=== PATIENT | female | born 1945 | race Caucasian/White ===

== ENCOUNTER → 2017-01-29 | Outpatient (CLI) | payer MEDICARE ==
[~2017-01-29] MED LIST: 'CLONIDINE0.1 MG PO; ASPIR 8181 MG PO; ATIVAN2 MG PO; ATORVASTATIN CA40 M1 PO; BACTRIM DS 8001 TA1 PO; CARDIZEM CD240 M1 PO; CARDIZEM CD240 MG PO; CATAFLAM50 MG PO; CEFTIN250 MG PO; CEFTIN500 M1 PO; CEPHALEXIN500 M1 PO; CIPRO500 MG PO; CIPRO750 MG PO; CLONIDINE HYDR0.1 MG PO; COLACE100 MG PO; CORDROL20 MG PO; COUMADIN0.5 MG PO; COUMADIN10 M1 PO; COUMADIN2.5 M1 PO; COUMADIN2.5 MG PO; COUMADIN4 M2 PO; COUMADIN4 MG PO; COUMADIN7.5 M1 PO; Clopidogrel75 MG PO; Coumadin5 MG PO; DARVOCET N 1001 TAB PO; DAYPRO600 M1 PO; DELTASONE20 MG PO; DUONEB 3 MG/3 ML3 M1 INH; GOLYTELY PO; KEFLEX500 MG PO; LEVAQUIN750 M1 PO; LEXAPRO10 MG PO; LIPITOR40 MG PO; LISINOPRIL10 M1 PO; LISINOPRIL10 MG PO; LOMOTIL 0.025 M1 TA1 PO; LOPRESSOR25 MG PO; LORAZEPAM1 MG PO; Lovenox30 MG/0.3; MACROBID100 M1 PO; METOPROLOL TART50 M1 PO; MIRALAX POWDER17 G1 PO; OXYCODONE HCL20 M1 PO; OXYCONTIN20 MG PO; OXYCONTIN30 MG PO; OXYCONTIN40 M1 PO; OXYCONTIN40 MG PO; PANTOPRAZOLE SO40 MG PO; PERCOCET 325 MG1 TA7 PO; PREDNICOT20 MG PO; PREDNISONE5 MG PO; PROTONIX40 MG PO; PYRIDIUM200 M1 PO; PYRIDIUM200 MG PO; SKELAXIN800 MG PO; WARFARIN SODIUM4 MG PO; WARFARIN SODIUM5 MG PO; ZANTAC 300300 MG PO; ZOFRAN ODT4 MG SL
== END | disposition home or self-care (01) ==
LOC: RAD 13:35
DX: M79.672 Pain in left foot (principal); R20.0 Anesthesia of skin

== ENCOUNTER 2017-02-02 00:07 | Emergency (ER) | payer MEDICARE ==
[~2017-02-02] VITALS: Ht 167.6 cm; Wt 81.6 kg
[2017-02-02 00:20] VITALS: BP 156/76
[2017-02-02] MEDS ORDERED: OXYBUTYNIN5 MG PO (00:26)
[2017-02-02 01:05] LABS: BASO # 0.1 10*3/uL (0.0-0.1); BASO % 1.1 % (0.0-1.0); EOS # 0.5 10*3/uL (0.0-0.4); EOS % 6.1 % (1.0-4.0); HEMOGLOBIN 14.4 g/dl (12.0-16.0); LYMPH # 2.3 10*3/uL (1.3-4.4); MEAN CELL VOLUME 86.9 fl (81.0-99.0); MEAN CORPUSCULAR HGB 27.8 pg (27.0-31.0); MEAN PLATELET VOLUME 10.8 fl (9.6-12.3); MONO # 0.5 10*3/uL (0.1-1.0); NEUT # 4.2 10*3/uL (2.3-7.9); NEUT % 55.5 % (47.0-73.0); PLATELET COUNT AUTOMATED 221 10*3/uL (130-400); RED BLOOD COUNT 5.18 10*6/uL (4.10-5.10); RED CELL DISTRI WIDTH 16.1 % (0-14.5); WHITE BLOOD COUNT 7.6 10*3/uL (4.8-10.8)
[2017-02-02 01:22] LABS: ALBUMIN 3.1 gm/dl (3.1-4.5); ALKALINE PHOSPHATASE 122 U/L (45-117); BILIRUBIN, TOTAL 0.3 mg/dl (0.2-1.0); BUN 14 mg/dl (7-24); CARBON DIOXIDE 30 mmol/L (21-32); CHLORIDE 101 mmol/L (98-107); EST GLOM FILT AFRICAN AMERICAN > 60 ml/min; GLUCOSE 277 mg/dL (65-99); SGOT/AST 21 IU/L (3-35); SGPT/ALT 26 U/L (12-78); SODIUM 138 mmol/L (136-145); TOTAL PROTEIN 6.9 gm/dL (6.4-8.2)
== END 2017-02-02 04:59 | disposition home or self-care (01) ==
LOC: ED 00:07
PROVIDERS: Physician Assistant
DX: G89.29 Other chronic pain (principal); R10.10 Upper abdominal pain, unspecified; Z79.01 Long term (current) use of anticoagulants; Z90.49 Acquired absence of other specified parts of digestive tract; Z88.1 Allergy status to other antibiotic agents; Z88.2 Allergy status to sulfonamides; Z88.6 Allergy status to analgesic agent; Z91.013 Allergy to seafood; Z91.041 Radiographic dye allergy status

== ENCOUNTER → 2017-02-13 | Outpatient (CLI) | payer MEDICARE ==
[~2017-02-13] MED LIST changes: +OXYBUTYNIN5 MG PO
[2017-02-13 12:16] LABS: INTERNATIONAL NORM RATIO 2.7 (2.0-3.5); PROTHROMBIN TIME 30.1 SECONDS (9.0-12.4)
== END | disposition home or self-care (01) ==
LOC: LAB 11:06
PROVIDERS: Internal Medicine Gastroenterology
DX: Z79.01 Long term (current) use of anticoagulants (principal)

== ENCOUNTER → 2017-03-05 | Outpatient (CLI) | payer MEDICARE | END | disposition home or self-care (01) | LOC: RAD 11:41 | DX: M19.072 Primary osteoarthritis, left ankle and foot (principal) ==

== ENCOUNTER → 2017-03-26 | Outpatient (CLI) | payer MEDICARE ==
[2017-03-26 13:02] LABS: BASO # 0.1 10*3/uL (0.0-0.1); BASO % 0.9 % (0.0-1.0); EOS # 0.3 10*3/uL (0.0-0.4); EOS % 3.2 % (1.0-4.0); HEMATOCRIT 46.5 % (37.0-47.0); LYMPH # 2.6 10*3/uL (1.3-4.4); MEAN CELL VOLUME 87.6 fl (81.0-99.0); MEAN CORPUSCULAR HGB 28.2 pg (27.0-31.0); MEAN CORPUSCULAR HGB CONC 32.3 g/dl (33.0-37.0); MEAN PLATELET VOLUME 10.9 fl (9.6-12.3); MONO # 0.4 10*3/uL (0.1-1.0); MONO % 5.2 % (3.0-9.0); NEUT # 4.4 10*3/uL (2.3-7.9); NEUT % 57.4 % (47.0-73.0); PLATELET COUNT AUTOMATED 218 10*3/uL (130-400); RED BLOOD COUNT 5.31 10*6/uL (4.10-5.10); RED CELL DISTRI WIDTH 17.1 % (0-14.5); WHITE BLOOD COUNT 7.7 10*3/uL (4.8-10.8)
== END | disposition home or self-care (01) ==
LOC: LAB 12:15
PROVIDERS: Orthopaedic Surgery
DX: M20.12 Hallux valgus (acquired), left foot (principal); M21.612 Bunion of left foot; B99.9 Unspecified infectious disease

== ENCOUNTER → 2017-05-03 | Outpatient (CLI) | payer MEDICARE ==
[~2017-05-03] MED LIST changes: +ACETAMINOPHEN/O1 TAB PO; +OXYCONTIN20 M1 PO; +WARFARIN SOD5 MG PO
[2017-05-03 15:58] LABS: BILIRUBIN NEGATIVE (NEGATIVE); BLOOD 1+ (NEGATIVE); CLARITY SL CLOUDY (CLEAR); COLOR YELLOW (YELLOW); GLUCOSE 3+ (NEGATIVE); KETONE NEGATIVE (NEGATIVE); LEUKO ESTERASE TRACE (NEGATIVE); NITRITE NEGATIVE (NEGATIVE); PROTEIN NEGATIVE (NEGATIVE); SPECIFIC GRAVITY 1.025 (1.005-1.030); UROBILINOGEN 0.2 E.U./dl (0.2-1.0)
[2017-05-03 16:00] LABS: BASO # 0.1 10*3/uL (0.0-0.1); BASO % 0.7 % (0.0-1.0); EOS # 0.2 10*3/uL (0.0-0.4); EOS % 2.4 % (1.0-4.0); HEMATOCRIT 50.6 % (37.0-47.0); HEMOGLOBIN 16.4 g/dl (12.0-16.0); LYMPH # 3.5 10*3/uL (1.3-4.4); MEAN CORPUSCULAR HGB 29.2 pg (27.0-31.0); MEAN CORPUSCULAR HGB CONC 32.4 g/dl (33.0-37.0); MEAN PLATELET VOLUME 10.7 fl (9.6-12.3); MONO # 0.5 10*3/uL (0.1-1.0); MONO % 4.9 % (3.0-9.0); NEUT # 5.4 10*3/uL (2.3-7.9); NEUT % 55.8 % (47.0-73.0); PLATELET COUNT AUTOMATED 248 10*3/uL (130-400); RED BLOOD COUNT 5.62 10*6/uL (4.10-5.10); WHITE BLOOD COUNT 9.7 10*3/uL (4.8-10.8)
[2017-05-03 16:14] LABS: BACTERIA 2+
[2017-05-03 16:24] LABS: INTERNATIONAL NORM RATIO 4.3 (2.0-3.5); PROTHROMBIN TIME 49.5 SECONDS (9.0-12.4)
[2017-05-03 16:35] LABS: ALBUMIN 3.9 gm/dl (3.1-4.5); ALKALINE PHOSPHATASE 134 U/L (45-117); BILIRUBIN, TOTAL 0.4 mg/dl (0.2-1.0); BUN 12 mg/dl (7-24); CARBON DIOXIDE 29 mmol/L (21-32); CHLORIDE 100 mmol/L (98-107); EST GLOM FILT AFRICAN AMERICAN > 60 ml/min; GLUCOSE 151 mg/dL (65-99); POTASSIUM 4.2 mmol/L (3.5-5.1); SGOT/AST 22 IU/L (3-35); SGPT/ALT 34 U/L (12-78); SODIUM 136 mmol/L (136-145); TOTAL PROTEIN 8.3 gm/dL (6.4-8.2)
== END | disposition home or self-care (01) ==
LOC: LAB 12:54
PROVIDERS: Orthopaedic Surgery
DX: Z01.818 Encounter for other preprocedural examination (principal); M25.572 Pain in left ankle and joints of left foot; R79.1 Abnormal coagulation profile

== ENCOUNTER → 2017-05-10 | Outpatient (CLI) | payer MEDICARE | END | disposition home or self-care (01) | LOC: US 11:43 | DX: R14.0 Abdominal distension (gaseous) (principal) ==

== ENCOUNTER → 2017-05-13 | Outpatient (CLI) | payer MEDICARE ==
[2017-05-13 12:01] LABS: BASO # 0.1 10*3/uL (0.0-0.1); EOS # 0.3 10*3/uL (0.0-0.4); EOS % 3.7 % (1.0-4.0); HEMATOCRIT 47.9 % (37.0-47.0); HEMOGLOBIN 15.5 g/dl (12.0-16.0); LYMPH # 2.7 10*3/uL (1.3-4.4); LYMPH % 33.8 % (27.0-41.0); MEAN CELL VOLUME 91.6 fl (81.0-99.0); MEAN CORPUSCULAR HGB 29.6 pg (27.0-31.0); MEAN CORPUSCULAR HGB CONC 32.4 g/dl (33.0-37.0); MONO # 0.4 10*3/uL (0.1-1.0); MONO % 5.3 % (3.0-9.0); NEUT # 4.4 10*3/uL (2.3-7.9); NEUT % 55.8 % (47.0-73.0); PLATELET COUNT AUTOMATED 236 10*3/uL (130-400); RED BLOOD COUNT 5.23 10*6/uL (4.10-5.10); RED CELL DISTRI WIDTH 14.6 % (0-14.5); WHITE BLOOD COUNT 7.9 10*3/uL (4.8-10.8)
[2017-05-13 12:04] LABS: BILIRUBIN 1+ (NEGATIVE); BLOOD 3+ (NEGATIVE); CLARITY CLOUDY (CLEAR); COLOR YELLOW (YELLOW); GLUCOSE NEGATIVE (NEGATIVE); KETONE NEGATIVE (NEGATIVE); LEUKO ESTERASE 2+ (NEGATIVE); NITRITE POSITIVE (NEGATIVE); PROTEIN 2+ (NEGATIVE); SPECIFIC GRAVITY 1.025 (1.005-1.030); UROBILINOGEN 0.2 E.U./dl (0.2-1.0)
[2017-05-13 12:16] LABS: ALBUMIN 3.5 gm/dl (3.1-4.5); ALKALINE PHOSPHATASE 120 U/L (45-117); BILIRUBIN, TOTAL 0.4 mg/dl (0.2-1.0); BUN 13 mg/dl (7-24); CARBON DIOXIDE 31 mmol/L (21-32); CHLORIDE 100 mmol/L (98-107); EST GLOM FILT AFRICAN AMERICAN > 60 ml/min; GLUCOSE 161 mg/dL (65-99); POTASSIUM 3.9 mmol/L (3.5-5.1); SGOT/AST 16 IU/L (3-35); SGPT/ALT 28 U/L (12-78); SODIUM 138 mmol/L (136-145); TOTAL PROTEIN 7.6 gm/dL (6.4-8.2)
[2017-05-13 12:23] LABS: BACTERIA 3+; RBC TNTC rbc/hpf (0-2); WBC TNTC wbc/hpf (0-5)
[2017-05-13 12:23] LABS: PROTHROMBIN TIME 61.1 SECONDS (9.0-12.4)
[2017-05-13 12:31] LABS: INTERNATIONAL NORM RATIO 5.2 (2.0-3.5)
== END | disposition home or self-care (01) ==
LOC: LAB 10:53 → EDSTATUS 05-14 07:30 → SDC 05-14 07:30
PROVIDERS: Orthopaedic Surgery
DX: Z01.818 Encounter for other preprocedural examination (principal); R31.9 Hematuria, unspecified; R10.2 Pelvic and perineal pain; M25.572 Pain in left ankle and joints of left foot; K59.00 Constipation, unspecified; Z79.01 Long term (current) use of anticoagulants; Z79.899 Other long term (current) drug therapy

== ENCOUNTER 2017-05-19 03:42 | Emergency (ER) | payer MEDICARE ==
[~2017-05-19] VITALS: Ht 157.4 cm; Wt 63.5 kg
[2017-05-19 03:51] VITALS: BP 159/94
[2017-05-19] MEDS ORDERED: VESICARE5 MG PO (03:54)
[2017-05-19] MEDS ORDERED: ELIQUIS5 M1 PO (03:55)
[2017-05-19 04:44] LABS: BASO # 0.1 10*3/uL (0.0-0.1); EOS # 0.3 10*3/uL (0.0-0.4); HEMOGLOBIN 14.5 g/dl (12.0-16.0); LYMPH # 2.9 10*3/uL (1.3-4.4); LYMPH % 34.4 % (27.0-41.0); MEAN CELL VOLUME 91.1 fl (81.0-99.0); MEAN CORPUSCULAR HGB 29.4 pg (27.0-31.0); MEAN CORPUSCULAR HGB CONC 32.2 g/dl (33.0-37.0); MEAN PLATELET VOLUME 10.7 fl (9.6-12.3); MONO # 0.5 10*3/uL (0.1-1.0); MONO % 6.3 % (3.0-9.0); NEUT # 4.5 10*3/uL (2.3-7.9); NEUT % 53.9 % (47.0-73.0); PLATELET COUNT AUTOMATED 223 10*3/uL (130-400); RED BLOOD COUNT 4.94 10*6/uL (4.10-5.10); RED CELL DISTRI WIDTH 14.4 % (0-14.5); WHITE BLOOD COUNT 8.3 10*3/uL (4.8-10.8)
[2017-05-19 04:58] LABS: ALBUMIN 3.2 gm/dl (3.1-4.5); ALKALINE PHOSPHATASE 120 U/L (45-117); BILIRUBIN, TOTAL 0.5 mg/dl (0.2-1.0); BUN 15 mg/dl (7-24); C-REACTIVE PROTEIN 1.22 MG/DL (0-0.3); CARBON DIOXIDE 29 mmol/L (21-32); CHLORIDE 102 mmol/L (98-107); EST GLOM FILT AFRICAN AMERICAN > 60 ml/min; GLUCOSE 195 mg/dL (65-99); POTASSIUM 3.8 mmol/L (3.5-5.1); SGOT/AST 17 IU/L (3-35); SGPT/ALT 29 U/L (12-78); SODIUM 139 mmol/L (136-145)
[2017-05-19] MEDS ORDERED: CIPRO250 MG PO (05:44)
== END 2017-05-19 05:50 | disposition home or self-care (01) ==
LOC: ED 03:42
PROVIDERS: Emergency Medicine Emergency Medical Services
DX: K59.00 Constipation, unspecified (principal); N39.0 Urinary tract infection, site not specified; B96.20 Unspecified Escherichia coli [E. coli] as the cause of diseases classified elsewhere; I10 Essential (primary) hypertension; I25.10 Atherosclerotic heart disease of native coronary artery without angina pectoris; G89.29 Other chronic pain; I25.2 Old myocardial infarction; Z90.49 Acquired absence of other specified parts of digestive tract; Z86.718 Personal history of other venous thrombosis and embolism; Z98.51 Tubal ligation status; Z79.01 Long term (current) use of anticoagulants; Z79.899 Other long term (current) drug therapy; Z88.5 Allergy status to narcotic agent; Z91.041 Radiographic dye allergy status; Z88.2 Allergy status to sulfonamides; Z91.013 Allergy to seafood

== ENCOUNTER → 2017-06-06 | Day surgery (SDC) | payer MEDICARE ==
[2017-06-03 12:30] LABS: BILIRUBIN NEGATIVE (NEGATIVE); BLOOD TRACE-INTACT (NEGATIVE); CLARITY SL CLOUDY (CLEAR); COLOR YELLOW (YELLOW); GLUCOSE 1+ (NEGATIVE); KETONE TRACE (NEGATIVE); LEUKO ESTERASE TRACE (NEGATIVE); NITRITE NEGATIVE (NEGATIVE); PH 5.5 (5.0-9.0); PROTEIN NEGATIVE (NEGATIVE); SPECIFIC GRAVITY 1.025 (1.005-1.030); UROBILINOGEN 0.2 E.U./dl (0.2-1.0)
[2017-06-03 12:35] LABS: BASO # 0.1 10*3/uL (0.0-0.1); BASO % 0.6 % (0.0-1.0); EOS # 0.3 10*3/uL (0.0-0.4); EOS % 4.3 % (1.0-4.0); HEMATOCRIT 46.1 % (37.0-47.0); HEMOGLOBIN 14.8 g/dl (12.0-16.0); LYMPH # 2.4 10*3/uL (1.3-4.4); LYMPH % 30.3 % (27.0-41.0); MEAN CELL VOLUME 93.7 fl (81.0-99.0); MEAN CORPUSCULAR HGB 30.1 pg (27.0-31.0); MEAN CORPUSCULAR HGB CONC 32.1 g/dl (33.0-37.0); MEAN PLATELET VOLUME 11.3 fl (9.6-12.3); MONO # 0.5 10*3/uL (0.1-1.0); MONO % 6.5 % (3.0-9.0); NEUT # 4.6 10*3/uL (2.3-7.9); NEUT % 57.9 % (47.0-73.0); PLATELET COUNT AUTOMATED 209 10*3/uL (130-400); RED BLOOD COUNT 4.92 10*6/uL (4.10-5.10); RED CELL DISTRI WIDTH 14.3 % (0-14.5)
[2017-06-03 12:54] LABS: BACTERIA TRACE; RBC 0-2 rbc/hpf (0-2)
[2017-06-03 12:58] LABS: HEMOGLOBIN A1c 7.8 % (4.8-5.6)
[2017-06-03 13:02] LABS: ALBUMIN 3.5 gm/dl (3.1-4.5); ALKALINE PHOSPHATASE 122 U/L (45-117); BILIRUBIN, TOTAL 0.4 mg/dl (0.2-1.0); BUN 13 mg/dl (7-24); CARBON DIOXIDE 32 mmol/L (21-32); CHLORIDE 98 mmol/L (98-107); EST GLOM FILT AFRICAN AMERICAN > 60 ml/min; GLUCOSE 191 mg/dL (65-99); POTASSIUM 4.4 mmol/L (3.5-5.1); PROTHROMBIN TIME 10.3 SECONDS (9.0-12.4); SGOT/AST 14 IU/L (3-35); SGPT/ALT 25 U/L (12-78); SODIUM 138 mmol/L (136-145); TOTAL PROTEIN 7.6 gm/dL (6.4-8.2)
[~2017-06-06] VITALS: Ht 162.5 cm; Wt 68.9 kg
[2017-06-06] VITALS (12 sets, daily range): BP systolic 95–150; BP diastolic 37–65
[~2017-06-06] MED LIST changes: +CIPRO250 MG PO; +ELIQUIS5 M1 PO; +METFORMIN500 MG PO; +VESICARE5 MG PO; +ZOFRAN4 MG PO
--- NOTE | ~2017-06-06 | O ---
[place], [place] OPERATIVE NOTE NAME: CINDI ARCINIEGA [facility] #: [id number] UNIT #: [id number] ROOM: DOCTOR: MONCHO BELTRAN DO BIRTHDATE: [birth year] DOS: 06/06/2017 PREOPERATIVE DIAGNOSIS: Painful hardware, left ankle. POSTOPERATIVE DIAGNOSIS: Painful hardware, left ankle. PROCEDURE: Removal of painful retained hardware from the medial and lateral left ankle. SURGEON: Moncho Beltran DO. SNOWMAKER: Ese. ANESTHESIA: MARY JO Sears. INDICATIONS: The patient is a 71-year-old female with a history of ORIF of the left ankle in 2011. The patient has complained of pain in the ankle and decreased ability to ambulate since that time. The patient has had a partial hardware removal of loose screw without significant improvement. The risks and benefits of the procedure were explained to the patient preoperatively. Preoperative labs and x-rays were obtained including preoperative medical clearance. PROCEDURE IN DETAIL: The left ankle was marked in the holding room. The patient was brought to the operative suite. A spinal anesthetic was performed by Anesthesia. The patient received clindamycin IV. When the spinal anesthetic was adequate, the left lower extremity was prepped and draped in the usual orthopedic fashion. The time-out was performed. The incision was marked both medially and laterally on the left ankle. The extremity was exsanguinated with an Esmarch bandage. The tourniquet was inflated to 350 mmHg. The lateral incision was made longitudinally with the scalpel. Subcutaneous tissue was spread down to the level of the fibula. The 6-hole 1/3 tubular plate was identified and cleared of any fibrous material. The remaining 3 holes screws in the plate were removed without difficulty. The final lag screw was removed laterally. All the holes were curetted. A culture was obtained from deep within one of the screw holes. The area was copiously irrigated with normal saline and evaluated under C-arm. The fracture appeared healed with no remaining hardware laterally. Attention was then turned to the medial side of the ankle. The hardware was identified under C-arm guidance. A screw was identified using an 18-gauge needle. The incision was made sharply with a scalpel. Subcutaneous tissue was spread down to the level of the medial malleolus. The screw was identified and a K-wire used to enter this cannulated screw. The screw was removed manually with the appropriate screwdriver. The screw hole was curetted. The C-arm was utilized to confirm no remaining hardware within the left ankle and no evidence of fracture or dislocation. The ankle was copiously irrigated with normal saline and closed in a layered fashion with 2-0 Vicryl, followed by 3-0 Vicryl and skin dewey. The incisions were injected with Marcaine 0.5% plain. Xeroform, 4 x 4s, cast padding, ABDs [place], [place] OPERATIVE NOTE NAME: CINDI ARCINIEGA UNIT #: [id number] ROOM: DOCTOR: MONCHO BELTRAN DO BIRTHDATE: [birth year] and an LIAT completed the dressing. The tourniquet was released. The patient was taken to recovery room in satisfactory condition. Sponge and needle count correct. ESTIMATED BLOOD LOSS: 2-3 mL. SPECIMENS: Culture. IMPLANTS: 1. A 6-hole 1/3 tubular plate. 2. 5 titanium screws. DRAINS: None. PACKING: None. COMPLICATIONS: None. FINDINGS: Retained hardware, medial and lateral left ankle. MONCHO BELTRAN DO CM:OPRECORD:OPERATIVE NOTE 1320 24 MONCHO BELTRAN DO 06/06/171924 interface
== END | disposition home or self-care (01) ==
LOC: SDC 04-30 09:30
PROVIDERS: Orthopaedic Surgery
DX: T84.84XA Pain due to internal orthopedic prosthetic devices, implants and grafts, initial encounter (principal); F41.9 Anxiety disorder, unspecified; Z79.01 Long term (current) use of anticoagulants; Z98.890 Other specified postprocedural states; F17.210 Nicotine dependence, cigarettes, uncomplicated; Y82.8 Other medical devices associated with adverse incidents; Y92.89 Other specified places as the place of occurrence of the external cause; Z86.718 Personal history of other venous thrombosis and embolism; I10 Essential (primary) hypertension; Z87.81 Personal history of (healed) traumatic fracture; I25.2 Old myocardial infarction; I25.10 Atherosclerotic heart disease of native coronary artery without angina pectoris; Z95.5 Presence of coronary angioplasty implant and graft; J44.9 Chronic obstructive pulmonary disease, unspecified; K21.9 Gastro-esophageal reflux disease without esophagitis

== ENCOUNTER 2017-08-19 11:01 | Inpatient (IN) | payer MEDICARE ==
[~2017-08-19] VITALS: Ht 157.4 cm; Wt 64.6 kg
--- NOTE | ~2017-08-19 | PR ---
[place], [place] PROGRESS NOTE NAME: [id number] UNIT #: [id number] ROOM: 524 DOCTOR: VANGIE BOWER MD,DANIEL BIRTHDATE: [birth year] DOS: 08/26/2017 PULMONARY PROGRESS NOTE SUBJECTIVE: She was seen and examined. She has been noted comfortable at this time. Lost IV site and was currently attempted to get the peripheral line established. She is getting the transesophageal echocardiogram to be done today by the basket machine operator. OBJECTIVE: VITAL SIGNS: Shows normal temperature, respiratory rate 20, heart rate 78, blood pressure 172/74. The pulse oxygen saturation on 4 liters nasal cannula 92% saturation. HEENT: No acute change. NECK: Supple. CARDIOVASCULAR: S1, S2 audible. LUNGS: The patient was noted without any wheezing or crackles. ABDOMEN: Soft, nontender. IMPRESSION: 1. The patient with acute MRSA bacteremia, seem to be resolving. The patient is responding to treatment. 2. Acute pneumonia was also suspected in the left lower lobe as well. 3. Chronic obstructive pulmonary disease. PLAN OF TREATMENT: No changes in the plan of therapy for this patient at this time. Other supportive plan and management and care. Usual medical management for the patient as well as in progress. Additional treatment changes to be made for this patient based on progression of the illness. DANIEL VENCES MD CM:PNTRANS [id number] [id number] DANIEL BOWER MD 08/26/17 1331 interface
--- NOTE | ~2017-08-19 | PR ---
[place], [place] PROGRESS NOTE NAME: CINDI ARCINIEGA [facility] #: [id number] UNIT #: [id number] ROOM: 524 DOCTOR: VANGIE BOWER MD,DANIEL BIRTHDATE: [birth year] DOS: 08/28/2017 The patient was independently seen and examined today. History was conformed. Physical examination performed, all the available labs were reviewed. The note done by the quality engineer medical device was approved. The changes in the medical management and other for the patient were personally made for this patient on today's visit. She has been doing very well. The patient at this time remains symptomatic from the pulmonary standpoint, auscultation of the chest was clear. PHYSICAL EXAMINATION: VITAL SIGNS: For the patient which were recorded showed low-grade fever of 100 degrees Fahrenheit to normal temperature, respiratory rate 18-20, heart rate of 84, blood pressure 160/76. LUNGS: Clear. ABDOMEN: Soft, nontender. IMPRESSION: The patient with MRSA bacteremia and suspected acute pneumonia as well, currently resolving progressively. PLAN OF MANAGEMENT: The patient was planned for discharge to the nursing facility for further continued medical management. In the meantime, continue other supportive plan of therapy and care plan. DANIEL VENCES MD CM:PNTRANS [id number] DANIEL BOWER MD 08/28/17 1137 interface
--- NOTE | ~2017-08-19 | PR ---
[place], [place] PROGRESS NOTE NAME: CINDI ARCINIEGA [facility] #: [id number] UNIT #: [id number] ROOM: 524 DOCTOR: KERI CALERO MD BIRTHDATE: [birth year] DOS: 08/26/2017 SUBJECTIVE: Patient is not having any new complaints. She has not had a bowel movement yet. PHYSICAL EXAMINATION: VITAL SIGNS: Blood pressure is 109/54, pulse of 58, respirations 20, temperature 98.3. LUNGS: Diminished breath sounds. No wheezes, rales or rhonchi heard this morning. HEART: Regular. ABDOMEN: Obese. EXTREMITIES: Without any edema. ASSESSMENT AND PLAN: 1. Methicillin-resistant Staphylococcus aureus bacteremia with sepsis, on IV vancomycin, transesophageal echocardiogram pending today. 2. Atelectasis with pneumonia, on IV antibiotics. 3. Proteus mirabilis in the urine, appropriate antibiotics started. 4. Benign hypertension, controlled. Discussed with the patient's this morning; he is adamant that he wants to take her home for IV antibiotics. PICC line to be placed once the cultures from August 24 come back and if it is negative. KERI CALERO MD CM:PNTRANS [id number] KERI CALERO MD 08/26/17 2243 interface
--- NOTE | ~2017-08-19 | PR ---
[place], [place] PROGRESS NOTE NAME: CINDI ARCINIEGA [facility] #: [id number] UNIT #: [id number] ROOM: 524 DOCTOR: KERI CALERO MD BIRTHDATE: [birth year] DOS: SUBJECTIVE: The patient complains of constipation, has not had any bowel movement in a few days. OBJECTIVE: VITAL SIGNS: Blood pressure is 165/63, pulse of 70, respirations 20, temperature 98.9. LUNGS: Diminished breath sounds, clear. HEART: Regular. ABDOMEN: Obese, soft, nontender. EXTREMITIES: Without any edema. CT of the chest shows tiny bilateral pleural effusions, atelectasis and consolidated right base suggestive of pneumonia. LABORATORY DATA: White cell count is normal at 8.6, hemoglobin 12.7, hematocrit 39.8, electrolyte panel normal. Vancomycin trough normal. ESR 46, no CRP is available. Urine culture shows Proteus vulgaris. ASSESSMENT AND PLAN: 1. MRSA bacteremia with sepsis. The patient is on IV vancomycin, source of infection still unknown, scheduled for UYEN tomorrow, doubt the pneumonia is causing the bacteremia. 2. Atelectasis, pneumonia, right lower lobe with bilateral pleural effusions. Already on multiple antibiotics. 3. Urinary tract infection with Proteus mirabilis on antibiotics. 4. Benign hypertension, controlled. 5. Multiple episodes of deep vein thrombosis, on Eliquis. 6. History of coronary artery disease without any complaints of chest pain, the stool softeners and MiraLax to be given today for constipation. Repeat blood cultures that were done on August 24 that is not completed yet. Further plan depends on the blood culture results and the UYEN. [place], [place] PROGRESS NOTE NAME: [id number] UNIT #: [id number] ROOM: 524 DOCTOR: KERI CALERO MD BIRTHDATE: [birth year] KERI CALERO MD CM:PNTRANS [phone] KERI CALERO MD 08/25/17 9418 interface
--- NOTE | ~2017-08-19 | PR ---
[place], [place] PROGRESS NOTE NAME: CINDI ARCINIEGA UNIT #: [id number] ROOM: 524 DOCTOR: ROOPA BENDER MD BIRTHDATE: [birth year] DOS: 08/26/2017 SUBJECTIVE: The patient was seen today at her bedside for followup of her staph bacteremia. I have scheduled her for a transesophageal echocardiogram today and spent considerable time discussing the indications and procedure details with her . The patient had no trouble over the weekend and denies fevers or chills. She has, however, continued to be confused. She denies orthopnea or PND. She denies chest pain or palpitations. PHYSICAL EXAMINATION: VITAL SIGNS: Today her pulse is 78 and regular, blood pressure is 172/74. She is afebrile, but did have a fever of 100.0 yesterday. NECK: Supple. She has no jugular distention. Carotids are full. I heard no bruits. LUNGS: Respirations are unlabored. Her chest has decreased breath sounds at the bases. HEART: Has a regular rhythm. She has a grade 2/6 systolic murmur along the left sternal border, radiating towards the base. She has a grade 1/6 holosystolic murmur at the apex. No diastolic murmurs are heard. ABDOMEN: Soft and normally active without masses, organomegaly or bruits. EXTREMITIES: Showed no edema. She has no peripheral findings to suggest embolic phenomena. LABORATORY DATA: White count today is 8600 with hemoglobin of 12.7. Sodium is 136, potassium 3.6, BUN 16 and creatinine 0.72. IMPRESSION: 1. Staphylococcal bacteremia. 2. Recent change in mental status. 3. Essential hypertension. 4. Possible pneumonia. PLAN: I have discussed transesophageal echocardiography with the patient's including risk of anesthesia reaction, sore throat, aspiration, vomiting and esophageal injury. The patient and her understand these risks and agree to proceed. Our goal is to find whether or not she has evidence for cardiac seeding of her bacteremia and the extent of the disease within her heart. I thank the hospitalist physicians for asking our advice regarding the care of this patient. [place], [place] PROGRESS NOTE NAME: CINDI ARCINIEGA UNIT #: [id number] ROOM: 524 DOCTOR: ROOPA BENDER MD BIRTHDATE: [birth year] ROOPA BENDER MD CM:PNTRANS [id number] ROOPA BENDER MD 08/30/17 1432 interface
--- NOTE | ~2017-08-19 | WRIGHTHP ---
[place], [place] PATIENT HISTORY AND PHYSICAL EXAM NAME: CINDI ARCINIEGA [facility] #: [id number] UNIT #: [id number] ROOM: 519 DOCTOR: DINA INGRAM MD BIRTHDATE: [birth year] DOS: 08/19/2017 HISTORY OF PRESENT ILLNESS: The patient is a 71-year-old female with a past medical history of: 1. GERD and esophagitis. 2. Coronary artery disease of [place] vessels and stent placement in the right coronary artery 3. Benign essential hypertension. 4. Left leg DVT. 5. Chronic pain syndrome. The patient follows with a pain center. 6. Centrilobular emphysema. 7. Mixed hyperlipidemia. The patient presented to the Emergency Department with multiple complaints. She was weak, dizzy and almost blacked out at home. The patient also having cramping pains in her abdomen off and on. In the ER, the patient was diagnosed as having presyncope and recommended for admission and further management. After admission, the patient has been ambulating in the hallways. She is feeling better, but she still is getting cramping pain in her abdomen. No nausea, vomiting, diarrhea or constipation. REVIEW OF SYSTEMS: LUNGS: No increasing shortness of breath. GASTROINTESTINAL: The patient with some cramping pains in the abdomen. CARDIOVASCULAR: No chest pains. LUNGS: No wheezing. No shortness of breath. FAMILY HISTORY: Noncontributory. HOME MEDICATIONS: Dicyclomine, DuoNeb, lisinopril, oxycodone, diltiazem, Apixaban, glipizide, meclizine, lorazepam. ALLERGIES: Known allergies to IODINE DYE, SULFA, HYDROCODONE, CEPHALOSPORINS, SHELLFISH. PHYSICAL EXAMINATION: GENERAL: Alert and oriented x 3, in no visible distress. HEENT AND NECK: Extraocular movements are intact. Sclerae are anicteric. Oral mucosa is moist and clean. No obvious facial weakness. Neck is supple without any lymphadenopathy. No thyromegaly. No JVD. No carotid arterial bruits. LUNGS: Clear to auscultation. No wheezing. No rhonchi. CARDIOVASCULAR SYSTEM: Heart rate is regular in rate and rhythm. S1 and S2 normally audible. No significant murmur or any other abnormal cardiac sounds. ABDOMEN: Soft, nontender. No obvious organomegaly. Bowel sounds are present. No obvious herniation. EXTREMITIES: Without significant cyanosis or edema. Warm to touch. CENTRAL NERVOUS SYSTEM: Alert and oriented x 3. Cranial nerves II-XII are intact. Speech is normal. The patient is able to move all extremities. Normal muscle strength. Deep tendon reflexes are equal on both sides. Plantars were downgoing. [place], [place] PATIENT HISTORY AND PHYSICAL EXAM NAME: CINDI ARCINIEGA UNIT #: [id number] ROOM: [facility] DOCTOR: DINA INGRAM MD BIRTHDATE: [birth year] IMPRESSION: 1. The patient's presyncopal episode being monitored. The patient remains in normal sinus rhythm in 70s and 80s heart rate and is working with Physical Therapy and ambulating well. 2. Still present are cramping pains in her abdomen, which may have made her presyncopal and vasovagal, so I am starting her on dicyclomine for symptomatic relief, which patient says has worked in the past. 3. Type 2 diabetes mellitus. I will continue glipizide, follow her sugars and keep her on no concentrated sweet diet. 4. Benign essential hypertension. Blood pressures are treated and controlled. 5. Severe generalized anxiety disorder, treated and controlled with lorazepam as needed. 6. Chronic pain syndrome. The patient already on oxycodone by pain center which was continued. 7. Chronic deep venous thrombosis involving left leg. I continued Apixaban. DINA INGRAM MD CM:HISPHYS:PATIENT HISTORY AND PHYSICAL EXAMINATION 04 27 DINA INGRAM MD 08/20/171926 interface
--- NOTE | ~2017-08-19 | PR ---
[place], [place] PROGRESS NOTE NAME: CINDI ARCINIEGA [facility] #: [id number] UNIT #: [id number] ROOM: 519 DOCTOR: DINA INGRAM MD BIRTHDATE: [birth year] DOS: 08/21/2017 The patient with high grade fevers early in the morning with tachycardia, fever of 102.1 degrees Fahrenheit with a heart rate of 103-106 with nausea and vomiting, now improved with treatment with Tylenol and Zofran. Blood cultures were performed and chest x-ray showed no pneumonic infiltrates. Urinalysis was also checked and no signs of any infection. Standard physical, impression. Patient with acute viral syndrome with high grade fever. Blood cultures, urine cultures and chest x-ray was performed without any signs of bacterial infection. I will observe her for one more day because of her nausea and vomiting and dehydration, which has stopped and she was able to tolerate breakfast this morning. The patient was to be discharged to home today, but I will delay her discharge by 1 day. Presyncopal episode at home. The patient has been monitored and remained in normal sinus rhythm at the hospital. She is asymptomatic now. Type 2 diabetes mellitus. Blood sugars are being followed and treated. The patient on glipizide and no concentrated sweet diet. Benign essential hypertension with controlled blood pressures now. Chronic pain syndrome. The patient is followed by pain center. Her home medications were continued. The patient remains on oxycodone. History of chronic left leg DVT. The patient remains on Apixaban. DINA INGRAM MD CM:PNTRANS [phone] DINA INGRAM MD 08/21/17 2235 interface
--- NOTE | ~2017-08-19 | PR ---
[place], [place] PROGRESS NOTE [id number] UNIT #: [id number] ROOM: 524 DOCTOR: BERTHA WIGGINS DO BIRTHDATE: [birth year] DOS: 08/28/2017 ADDENDUM SUBJECTIVE: The patient continues to remain comfortable. She denies any worsening of her symptoms and does not appear to be in acute distress. OBJECTIVE: VITAL SIGNS: Temperature 100.1, pulse rate 84, respiratory rate 20, blood pressure 160/76, bedside pulse oximetry 92% on 4 liters nasal cannula. HEENT: No acute changes. No drainage, no erythema. NECK: Supple. CARDIOVASCULAR: S1, S2 are audible. LUNGS: Some decreased lung sounds bilaterally with minimal wheezing and no crackles. ABDOMEN: Soft, nontender. LABORATORY DATA: Blood cultures have come back positive for gram-positive Cocci in clusters, which were MRSA and the patient is currently on vancomycin. A UYEN was done and was negative. Repeat cultures so far have showed no bacterial growth (preliminary). IMPRESSION: Bacteremia has resolved. The patient has been receiving vancomycin for the possible MRSA pneumonia. Plans of discharge are being made. The patient went into AFib with RVR this morning. Please see Dr. Vences's note for more details on the plan of ____. BERTHA WIGGINS DO DANIEL VENCES MD CM:PNTRANS [id number] BERTHA WIGGINS DO 08/28/17 1846 interface
--- NOTE | ~2017-08-19 | PR ---
[place], [place] PROGRESS NOTE NAME: CINDI ARCINIEGA UNIT #: [id number] ROOM: 524 DOCTOR: DINA INGRAM MD BIRTHDATE: [birth year] DOS: 08/28/2017 SUBJECTIVE: The patient is waiting for discharge to intermediate for continued IV antibiotics for suspected osteomyelitis involving C5-C6 vertebrae. The patient is feeling better. OBJECTIVE: VITAL SIGNS: Blood pressure 132/58, heart rate 56 beats per minute, breathing 18 times per minute, temperature 98.4 degree Fahrenheit. GENERAL APPEARANCE: The patient is alert and oriented x 3, in no visible distress. HEENT AND NECK: Exam within normal limits. CARDIOVASCULAR SYSTEM: Heart rate is regular in rate and rhythm. S1 and S2 normally audible. LUNGS: Clear to auscultation. ABDOMEN: Soft, nontender. No obvious organomegaly. Bowel sounds are present. EXTREMITIES: Without significant cyanosis or edema. IMPRESSION: The patient with tenderness in the base of the neck and the back and suspected osteomyelitis being treated with IV vancomycin for 6 weeks. The patient is waiting for transfer to [facility] for continued treatment. Infectious Disease specialist will continue to follow her. The patient is to get a repeat MRI of the C-spine in 2 weeks again. 2. Benign essential hypertension. 3. Proteus mirabilis infection of the urine and cystitis being treated. 4. Atelectasis with pneumonia and methicillin-resistant Staphylococcus aureus positive blood cultures and sepsis, resolved with treatment. 5. Gastroesophageal reflux disease with esophagitis. 6. Coronary artery disease of [place] vessels. 7. Chronic left leg deep vein thrombosis. 8. Chronic pain syndrome. 9. Centrilobular emphysema. 10. Mixed hyperlipidemia. 11. Paroxysmal atrial fibrillation for which she is anticoagulated with apixaban and heart rate is controlled with diltiazem. [place], [place] PROGRESS NOTE NAME: CINDI ARCINIEGA UNIT #: [id number] ROOM: 524 DOCTOR: DINA INGRAM MD BIRTHDATE: [birth year] DINA INGRAM MD CM:PNTRANS 1038 1510 DINA INGRAM MD 08/28/17 1508 interface
--- NOTE | ~2017-08-19 | CON ---
[place], [place] REPORT OF CONSULTATION NAME: CINDI ARCINIEGA [facility] #: [id number] UNIT #: [id number] ROOM: 524 DOCTOR: DANIEL KRISHNAMURTHY MD BIRTHDATE: [birth year] DOS: 08/24/2017 CONSULTATION REQUESTED BY: Dr. Wendy Hobbs. REASON FOR CONSULTATION: Assessment of the acute pneumonia. HISTORY OF PRESENT ILLNESS: This is a 71-year-old white female patient who has been admitted under the care of Dr. Wendy Hobbs on 08/19/2017. The patient was hospitalized as she has been noted with symptoms of getting progressive increased respiratory symptoms. The patient with coughing, chest congestion, some shortness of breath with associated symptoms of diarrhea, back pain and others. The cough has been noted essentially nonproductive. There were no symptoms of hemoptysis. The patient denies symptoms of wheezing. The patient denies any symptoms of chest trauma. REVIEW OF SYSTEMS: CONSTITUTIONAL: Fatigue and tiredness noted without symptoms of fever or chills. EYES: Denies any burning, redness, or tenderness. EARS, NOSE, THROAT SYMPTOMS: No sore throat, hoarseness, otalgia, postnasal drainage. CARDIOVASCULAR: Denies anginal pain, edema, pain of the lower extremities. GASTROINTESTINAL: Dysphagia, nausea, vomiting, diarrhea, abdominal pain at this time. The patient noted epigastric pain previously, which resolved. Diarrhea was noted previously not present at this time. GENITOURINARY: Denies dysuria, suprapubic pain, hematuria. MUSCULOSKELETAL: Denies acute joint pain, redness, or tenderness. SKIN: No lesions or rashes. MUSCULOSKELETAL: Denies acute joint pain, redness, or tenderness. Remaining systems were reviewed and they were noted all negative. PAST MEDICAL HISTORY: 1. Reported with history of essential hypertension. 2. Anxiety disorder. 3. Hypercholesterolemia. 4. Coronary artery disease. 5. History of deep venous thrombosis of the left lower extremity in the past. 6. COPD with centrilobular emphysema. 7. Hyperlipidemia. PAST SURGICAL HISTORY: Noted as the cardiac catheterization and coronary stent insertion in the past. SOCIAL HISTORY: The patient is and lives at home, has 5 children. Denies history of alcohol use or illicit drug use. Tobacco use was noted in the patient for a long time, has half a pack of cigarettes per day, active use. Denies history of occupation related pulmonary exposure. FAMILY HISTORY: Noted, noncontributory. [place], [place] REPORT OF CONSULTATION NAME: CINDI ARCINIEGA UNIT #: [id number] ROOM: 524 DOCTOR: VANGIE BOWER MD,DANIEL BIRTHDATE: [birth year] PHYSICAL EXAMINATION: GENERAL: This is a 71-year-old white female, currently noted to be awake and alert without any distress on her bed. The patient's height was recorded by the nursing staff on admission as 5 feet 2 inches, weight of 142 pounds, BMI 26. VITAL SIGNS: Normal temperature to 99.4 degree Fahrenheit. The temperature on 08/22/2017 was noted at 101 degrees Fahrenheit. The respiratory rate range between 18-20, heart rate 75; previously noted 151. The blood pressure 112/61-132/56. Intake 1600, output 500 mL without Dong catheter recorded in past 24 hours, pulse ox saturation on half liter was 90% saturation. HEENT: Examination of patient shows no new changes. Head was atraumatic. Eyes: No icterus. NECK: Supple. CARDIOVASCULAR: S1, S2 is audible. LUNGS: The patient is noted without any wheezing. Crackles noted in mid and lower portion of the right lung. ABDOMEN: Soft, nontender and flat. EXTREMITIES: The patient noted without any edema, clubbing or cyanosis. CENTRAL NERVOUS SYSTEM: The patient was noted without any evidence of gross focal deficit. MUSCULOSKELETAL: No deformities. SKIN: No lesions or rashes. LABORATORY DATA: CBC on admission, 08/19/2017, hemoglobin 16.2, hematocrit 50.3, WBC count normal, platelet count was normal. Lactic acid 3.6 on 08/19/2017. PT/INR of the patient on 08/19/2017 was normal. CMP of the patient on 08/19/2017 was with normal BUN and creatinine. Sodium 134. CBC of the patient of 08/24/2017'; the patient was noted with normal WBC count, hemoglobin 11.8, hematocrit 37.4, platelet count was normal. BMP of the patient on 08/24/2017; sodium 132, normal BUN and creatinine and CO2 of 34. ESR was noted 35. Creatinine of this patient and BUN this morning was noted normal. Blood culture of the patient, which were taken on 08/21/2017 was noted with evidence of MRSA. Echocardiogram for this patient that was completed. The patient had transthoracic echocardiogram on 08/23/2017, reported with LVH without any evidence of valvular abnormality or findings of endocarditis. Review of the radiology data for this patient. The chest x-ray of the patient that was done for this patient on 08/21/2017, two-view, for the patient was noted without any acute major infiltration. The CT scan of the chest was also done for this patient on 08/23/2017 was noted with small area of atelectasis, infiltration in the left lower lung. There was no evidence of discrete pulmonary nodule for this patient or any cavitation. Changes of centrilobular emphysema were visible. IMPRESSION: 1. The patient who has been currently admitted to the hospital noted with MRSA bacteremia. The source whether related to the lung is not very clear. There was no evidence of findings suggestive of endocarditis clinically with the current chest x-ray. [place], [place] REPORT OF CONSULTATION NAME: CINDI ARCINIEGA UNIT #: [id number] ROOM: 524 DOCTOR: DANIEL KRISHNAMURTHY MD BIRTHDATE: [birth year] 2. The patient with history of chronic nicotine abuse with history of chronic obstructive pulmonary disease, centrilobular emphysema was also noted. 3. History of type 2 diabetes mellitus, essential hypertension, coronary artery disease and others. PLAN OF MANAGEMENT: The patient has been already treated by the Infectious Disease specialist with intravenous antibiotics. Monitor culture results with followup surveillance cultures to document complete resolution. Treat the patient empirically for the acute pneumonia in the left lower lobe if at all. The patient was also noted with respiratory insufficiency, currently requiring the oxygen supplementation. Obtain the sputum for Gram stain and culture. Continuation of bronchodilators and antibiotics. There was no need for steroids at this time. Other supportive therapy, plan of management as in progress to be continued. Usual care, addition of treatment, changes need to be made based on the progression of the illness. DANIEL VENCES MD CM:CONSTR:REPORT OF CONSULTATION 1138 08/25/17 0230 interface
--- NOTE | ~2017-08-19 | PR ---
[place], [place] PROGRESS NOTE NAME: CINDI ARCINIEGA [facility] #: [id number] UNIT #: [id number] ROOM: 524 DOCTOR: VANGIE BOWER MD,DANIEL BIRTHDATE: [birth year] DOS: 08/27/2017 SUBJECTIVE: She has been noted quite comfortable. Denies any coughing, chest pain or sputum expectoration. Underwent transesophageal echocardiogram yesterday as well as MRI of the spine as well. The transesophageal echocardiogram was noted as normal. There was no evidence of agitation. MRI at this point was also described with intervertebral disk disease without any abscess or other abnormalities. OBJECTIVE: VITAL SIGNS: For the patient, which have been recorded showed normal temperature, respiratory rate of 18, heart rate 64, blood pressure 154/58. Pulse oxygen saturation on 4 liters nasal cannula 95% saturation. HEENT: No acute change. NECK: Supple. CARDIOVASCULAR: S1, S2 audible. LUNGS: Without any wheezing or crackles. ABDOMEN: Soft, nontender. LABORATORY DATA: BMP this morning was noted as glucose 185, potassium 3.4, remaining normal. CBC normal. IMPRESSION: Resolution of the bacteremia and noted with surveillance cultures of the blood noted negative. Possibility of acute pneumonia with bacteremia and MRSA, currently responding to the treatment effectively. PLAN OF MANAGEMENT: No changes from the pulmonary standpoint. Continue the patient on current therapy, plan of care as previously. Usual care. All other treatment for the patient previously ongoing. No change in treatment recommended. Follow the recommendation of Infectious Disease for the antibiotics changes. DANIEL VENCES MD CM:PNTRANS [id number] DANIEL BOWER MD 08/27/17 1306 interface
--- NOTE | ~2017-08-19 | PR ---
[place], [place] PROGRESS NOTE NAME: CINDI ARCINIEGA [facility] #: [id number] UNIT #: [id number] ROOM: 524 DOCTOR: ROOPA BENDER MD BIRTHDATE: [birth year] DOS: 08/27/2017 SUBJECTIVE: The patient was seen at her bedside today with her in attendance 08/27/2017. She tolerated her transesophageal echocardiogram well yesterday. No definite evidence for endocarditis was found. We are now awaiting recommendations from the infectious disease service as to how long she should be treated with IV antibiotics. PHYSICAL EXAMINATION: VITAL SIGNS: Today, her pulse is 64 and regular, blood pressure is 154/58. She is afebrile. NECK: Supple. She has no jugular distention. Carotids are full. LUNGS: Respirations are unlabored. HEART: Has a regular rhythm. She has a fourth heart sound, but no third heart sound. She has a grade 2/6 systolic murmur along the left sternal border, but no diastolic murmurs. She has a grade 1/6 holosystolic murmur at the apex. ABDOMEN: Benign. EXTREMITIES: Showed no edema. IMPRESSION: Staphylococcal bacteremia. PLAN: No further cardiac workup is planned at this time. We will sign off, but remain available to assist if needed. I thank Dr. Hobbs and Dr. Miguel for asking our advice regarding her care. ROOPA BENDER MD CM:PNTRANS [id number] ROOPA BENDER MD 08/27/17 1153 interface
--- NOTE | ~2017-08-19 | PR ---
[place], [place] PROGRESS NOTE NAME: CINDI ARCINIEGA [facility] #: [id number] UNIT #: [id number] ROOM: 524 DOCTOR: ROBERT BALDERRAMA,JANUARY BIRTHDATE: [birth year] DOS: 08/28/2017 SUBJECTIVE: The patient is a 71-year-old female who is being followed for an MRSA bacteremia. She had 4 positive blood cultures, collected on the 1st at different times. Her repeat blood cultures from the 4th are negative. Her UYEN showed no vegetation. MRI of her spine showed degenerative changes, but no osteomyelitis. She denies any nausea, vomiting or diarrhea. No rash or itch. No cough or shortness of breath. She had a low grade temp of 100.1 this morning. She does have a PICC line in. LABORATORY DATA: Vancomycin trough 6.0, dosing will have to be adjusted. Cultures as reviewed above. CURRENT MEDICATIONS: Include vancomycin which is now dosed every 12 hours, OxyContin, Ativan, MiraLax, Novolin R, Colace, Phenergan, Xopenex, Lopressor, Zofran, Bentyl, DuoNeb, Zestril, Cardizem, Eliquis, Glucotrol and Antivert. PHYSICAL EXAMINATION: VITAL SIGNS: Show temperature 100.1, pulse 84, respirations 20, BP 160/76. GENERAL: A 71-year-old female, in no acute distress. HEAD, EYES, EARS, NOSE AND THROAT: Normocephalic. Mucous membranes pink and moist. No thrush. BACK: Does have significant cervical tenderness around C6 and 7. LUNGS: A few crackles in bases. Respirations even and unlabored. HEART: Regular rhythm. No murmur appreciated. ABDOMEN: Soft, nontender. EXTREMITIES: No edema, deformity or cyanosis. SKIN: Warm and dry. No rashes. PICC in place. Dressing dry and intact. No phlebitis. ASSESSMENT: Methicillin-resistant Staphylococcus aureus bacteremia with unknown etiology. UYEN was negative, but she may still have endocarditis with vegetation too small to be seen on UYEN, also of concern is her cervical pain. She needs to have a repeat MRI done in 2 weeks with and without IV contrast of her cervical spine to look for osteomyelitis. PLAN: She will follow up in the office in 1-2 weeks, continue the vancomycin for a total of 6 weeks. I have also discussed the case with the attending, Dr. Miguel, who will be managing her care at [facility]. Case discussed with Dr. Scarlett Whyte. LINDA JONES CNP [place], [place] PROGRESS NOTE NAME: CINDI ARCINIEGA UNIT #: [id number] ROOM: 524 DOCTOR: ROBERT BALDERRAMA,JANUARY BIRTHDATE: [birth year] SCARLETT WHYTE MD CM:ROXANNE [id number] BERNIE JANUARY ROBERT BALDERRAMA 09/03/17 0802 HEIDY [email or web address]
--- NOTE | ~2017-08-19 | PR ---
[place], [place] PROGRESS NOTE NAME: CINDI ARCINIEGA [facility] #: [id number] UNIT #: [id number] ROOM: 524 DOCTOR: CARLEE MELLO MD BIRTHDATE: [birth year] DOS: SUBJECTIVE: The patient is sitting up in bed, does not appear in any distress. Denies any specific cardiac complaint. The patient presented with history of altered mental status and fevers. The 8 reported blood cultures were positive. The patient from the Cardiology point of view has been doing relatively well. Her echocardiogram did confirm there is no evidence of vegetation, but patient has been set up for UYEN in the morning. The procedure was explained with risks, benefits, and alternatives to both patient and her . No cardiac recommendation at this time. Further input following the UYEN in a.m. with Dr. Sanchez. CARLEE MELLO MD CM:PNNARA 1134 [id number] CARLEE MELLO MD 08/25/17 1209 interface
--- NOTE | ~2017-08-19 | PR ---
[place], [place] PROGRESS NOTE NAME: CINDI ARCINIEGA [facility] #: [id number] UNIT #: [id number] ROOM: 524 DOCTOR: ROBERT BALDERRAMA,JANUARY BIRTHDATE: [birth year] DOS: 08/27/2017 SUBJECTIVE: The patient is a 71-year-old female who is being followed for MRSA bacteremia. She had positive blood cultures in the a.m. of August 21 as well as late evening hours of August 21. Repeat blood cultures from August 24 were clear. There has not been an identifiable source. She has had increasing neck pain. She has some chronic neck pain that has been worsening. She had an MRI yesterday of cervical and thoracic spine, which I reviewed, neither demonstrated osteomyelitis or epidural abscess; however, she does have significant degenerative changes of the cervical spine. She has been afebrile, tolerating the antibiotics. Denies nausea, vomiting or diarrhea. No rash or itch. No cough or shortness of breath. No recent fevers or shaking chills. No headache or dizziness. No chest pain or palpitations. Cervical spine continues to be painful. No numbness, tingling or pain into her arms. CURRENT MEDICATIONS: Include Novolin R, MiraLax, Colace, Phenergan, Xopenex, Lopressor, vancomycin, Zofran, Tylenol, Bentyl, DuoNeb, Zestril, Cardizem, Eliquis, Glucotrol, OxyContin, Antivert and Ativan. LABORATORY DATA: Showed WBC is 9.3, platelets 212. BUN 11, creatinine 0.65. Cultures as reviewed above on August 24. Blood cultures remain sterile. UYEN also reviewed, no vegetation noted. PHYSICAL EXAMINATION: VITAL SIGNS: Show temperature 98.3, pulse 64, respirations 18, BP 154/58. GENERAL: A 71-year-old female, in no acute distress. HEAD, EYES, EARS, NOSE AND THROAT: Normocephalic. No thrush. Cervical tenderness around C6-C7. NECK: Supple. LUNGS: Diminished bilaterally with few crackles. Respirations even and unlabored. HEART: Regular rhythm. No murmur appreciated. ABDOMEN: Soft, nontender, nondistended. EXTREMITIES: No edema, deformity or cyanosis. SKIN: Warm, dry, free of rashes. ASSESSMENT AND PLAN: Methicillin-resistant Staphylococcus aureus bacteremia, multiple positive blood cultures. Repeat blood cultures are negative. UYEN negative. Continue to have concern regarding possible cervical involvement. Staph infection in the spine is not always seen on the initial MRI. The cervical MRI will need to be repeated in 2 weeks. She will need this to be seen in followup in 1-2 weeks. She needs 6 weeks of IV antibiotics. At this point, we should stick with vancomycin 1.25 mg IV daily, with labs per ID protocol and to follow up with Infectious Disease in 1-2 weeks if dosing or other issues arise. I did discuss with Microbiology, they ran the sensitivity for daptomycin and it is sensitive. I have contacted the clinical social worker and we will discuss possible discharge planning with her. The is quite insistent that he wants to take her home, which I think is reasonable. [place], [place] PROGRESS NOTE NAME: SUZECINDI UNIT #: [id number] ROOM: 524 DOCTOR: ROBERT BALDERRAMAJANUARY BIRTHDATE: [birth year] LINDA CONCHIS JONES SCARLETT WHYTE MD CM:PNTRANS [phone] [id number] ROBERT BALDERRAMA 08/27/172010 interface
--- NOTE | ~2017-08-19 | PR ---
[place], [place] PROGRESS NOTE [id number] UNIT #: [id number] ROOM: 519 DOCTOR: DINA INGRAM MD BIRTHDATE: [birth year] DOS: 08/22/2017 OBJECTIVE: VITAL SIGNS: Blood pressure 131/47, heart rate running between 88 to 106 beats per minute and fever ranging between 99.5 to 102.1 degrees Fahrenheit. GENERAL APPEARANCE: The patient is alert and oriented x 3, in no visible distress. HEENT AND NECK: Exam within normal limits. CARDIOVASCULAR SYSTEM: Heart rate is regular in rate and rhythm. S1 and S2 normally audible. LUNGS: Clear to auscultation. ABDOMEN: Soft, nontender. No obvious organomegaly. Bowel sounds are present. EXTREMITIES: Without significant cyanosis or edema. IMPRESSION AND PLAN: 1. The patient with sepsis with 4 out of 4 blood cultures positive for gram-positive cocci in pairs and clusters and also running high-grade fevers, which are being controlled with Tylenol. Unknown source. The patient has been started on IV vancomycin and Infectious Disease specialists are being consulted for further management. 2. Type 2 diabetes mellitus. Blood sugars are being monitored and treated. 3. History of chronic left leg deep venous thrombosis, anticoagulated with apixaban. 4. Chronic pain syndrome. The patient follows up with the pain center and is on oxycodone. 5. Benign essential hypertension, with controlled blood pressures. DINA INGRAM MD CM:ROXANNE 1711 DINA INGRAM MD 08/22/17 2315 interface
--- NOTE | ~2017-08-19 | PR ---
[place], [place] PROGRESS NOTE [id number] UNIT #: [id number] ROOM: 524 DOCTOR: KERI CALERO MD BIRTHDATE: [birth year] DOS: SUBJECTIVE: The patient is doing well without any complaints. Denies any chest pains, palpitations or shortness of breath, but she does have a cough this morning and as per the nursing staff, there has been some periods of confusion during the night. OBJECTIVE: VITAL SIGNS: This morning graphic trend shows pressure 108/50, pulse of 79, respirations 20, temperature 98.6. LUNGS: Diminished breath sounds. No wheezes, rales or rhonchi heard this morning. HEART: Regular. ABDOMEN: Obese, soft, nontender. EXTREMITIES: Without any edema. ASSESSMENT AND PLAN: 1. Sepsis with continued fevers. MRSA has been isolated in the blood cultures, source of infection not known, workup still in the process. Echocardiogram done yesterday did not show any evidence of vegetations. 2. Chronic obstructive pulmonary disease with continued nicotine abuse, most likely responsible for chronic cough. The CT of the chest did show atelectasis in the left lower lobe. This could be an early pneumonia and will be started on antibiotics. 3. Urinary tract infection with Proteus vulgaris. IV Levaquin will be added. 4. Coronary artery disease of [place] coronaries. Again echo shows no evidence of vegetation. She was tachycardic during the night and IV fluids were given. Repeat labs to be ordered. KERI CALERO MD CM:PNTRANS [id number] KERI CALERO MD 08/24/17 1006 interface
--- NOTE | ~2017-08-19 | PR ---
[place], [place] PROGRESS NOTE NAME: CINDI ARCINIEGA [facility] #: [id number] UNIT #: [id number] ROOM: 524 DOCTOR: ROBERT BALDERRAMA,JANUARY BIRTHDATE: [birth year] DOS: 08/26/2017 SUBJECTIVE: The patient is a 71-year-old female being followed for MRSA bacteremia. She has had multiple positive blood cultures from a.m. of August 21 as well as late night, August 21. Her repeat blood cultures from August 24 are negative. She is currently on IV vancomycin, which she is tolerating without issue. Denies fevers, chills, nausea, vomiting or diarrhea. No rash or itch. No cough or shortness of breath. She does have neck pain. She has some chronic neck pain, but states that it has been worsening recently. No numbness, tingling or pain in her arms. She had a CT of the chest that showed some small pleural effusions. Chest films and reports were reviewed, also an x-ray of the ankle from August 23 that was unremarkable. She had had hardware removed on August 23 not due to infection, but due to chronic pain and had been in place for 3 years for an ankle fracture and she had recurrent pain with it. Per the orthopedic surgeon, at the time, she was informed that there was no sign of infection and she was never treated for infection in the ankle. She has been afebrile. No recent fevers or chills, but she states she was having what she is thought was fevers and chills at home for approximately a month prior to admission. She denies any cough or shortness of breath. CURRENT MEDICATIONS: Include Novolin R, MiraLax, Colace, Phenergan, Xopenex, Lopressor, vancomycin, Zofran, Tylenol, Bentyl, DuoNeb, Zestril, Cardizem, Eliquis, Glucotrol, OxyContin, Antivert and Ativan. LABORATORY DATA: From yesterday showed WBC is 8.6, platelets 167. BUN 16, creatinine 0.17 that was on the . Cultures as reviewed above. PHYSICAL EXAMINATION: VITAL SIGNS: Temperature 98.0, pulse 78, respirations 20, BP 172/74. GENERAL: A 71-year-old pleasant female, in no acute distress, nontoxic in appearance. HEAD, EYES, EARS, NOSE AND THROAT: Normocephalic. No thrush. Mucous membranes pink, somewhat tacky. NECK: Supple. LUNGS: Clear to auscultation bilaterally, respirations even and unlabored. HEART: Regular rhythm. No murmur appreciated. ABDOMEN: Soft, nontender, nondistended. EXTREMITIES: No edema, deformity or cyanosis. Left ankle incision has healed and unremarkable. SKIN: Warm, dry, free of rashes. MUSCULOSKELETAL: She does have significant tenderness of her lower cervical, upper thoracic spine. ASSESSMENT: Methicillin-resistant Staphylococcus aureus bacteremia, which I suspect to be causing infection in the lower cervical and upper thoracic spine. Some of the pain is probably being managed by her OxyContin, but she is quite tender upon physical exam. PLAN: At this point, we will continue the vancomycin. She needs an MRI of cervical and thoracic spine with and without IV contrast. I did contact the lab [place], [place] PROGRESS NOTE NAME: [facility]IEGA [facility] [id number] UNIT #: [id number] ROOM: 524 DOCTOR: ROBERT BALDERRAMAJANUARY BIRTHDATE: [birth year] to run sensitivities for daptomycin. The patient's is adamant that he takes her home upon discharge, which could possibly be arranged once the daptomycin sensitivity is available, which may be optimal given the vancomycin EMY of 2. We will followup on repeat blood cultures. I did discuss the case with Dr. Sanchez with Cardiology who will be doing UYEN later today. Case discussed with Dr. Scarlett Whyte. ADDENDUM I agree with the above plans as described. I will follow the patient clinically and adjust accordingly. LINDA JONES CNP SCARLETT WHYTE MD CM:PNNARA [id number] [id number] BERNIE JANUARY ROBERT BALDERRAMA 09/03/17 0801 HEIDY [email or web address]
--- NOTE | ~2017-08-19 | DS ---
[place], [place] DISCHARGE SUMMARY NAME: CINDI ARCINIEGA [facility] #: [id number] UNIT #: [id number] ROOM: 524 DOCTOR: DINA INGRAM MD BIRTHDATE: [birth year] DOS: 08/27/2017 DISCHARGE DIAGNOSES: 1. The patient with positive blood cultures for methicillin-resistant Staphylococcus aureus, requires IV vancomycin for 6 weeks. 2. MRI of the cervical and ____ spine showing moderate spinal stenosis at C5-C6. 3. Benign essential hypertension. 4. Proteus mirabilis urine infection and cystitis. 5. Atelectasis with pneumonia and methicillin-resistant Staphylococcus aureus sepsis. 6. Gastroesophageal reflux disease and esophagitis. 7. Coronary artery disease of the [place] vessels, with stent placement in the right coronary artery. 8. Left leg deep venous thrombosis, chronic. 9. Chronic pain syndrome. The patient follows at the pain center. 10. Centrilobular emphysema. 11. Mixed hyperlipidemia. HOSPITAL COURSE: The patient was admitted when she presented with weakness and dizziness and almost blacked out at home. The patient was admitted on a monitored bed to make sure that there was no significant cardiac dysrhythmia when she was put on a general assignment reporter and she was asymptomatic after that and doing well, but before she could be discharged to home, she developed high grade fevers. High grade fevers and sepsis discovered during her admission from uncertain source. All blood cultures grew positive for MRSA. An infectious disease specialist was consulted who recommended 6 weeks of IV vancomycin treatment. MRI of the C-spine and ____ spine showed cervical spinal stenosis at C6-C7, moderate and of moderate intensity. We need to consult Neurology from the long-term for evaluation of the cervical spinal stenosis and further evaluation and management by Neurology. Type 2 diabetes mellitus. The patient was kept on glyburide. Blood sugars were monitored and treated and are reasonably controlled. Benign essential hypertension, with controlled blood pressures with treatment. Severe generalized anxiety disorder was controlled and treated with p.r.n. lorazepam. Chronic pain syndrome and now cervical spinal stenosis. The patient already on oxycodone from the pain center. Chronic deep vein thrombosis involving left leg, treated with anticoagulation with apixaban. A repeat chest x-ray showing PICC line placement, no acute abnormality. Normal serum electrolytes except for potassium of 3.4. Blood culture results growing MRSA. [place], [place] DISCHARGE SUMMARY NAME: CINDI ARCINIEGA UNIT #: [id number] ROOM: 524 DOCTOR: DINA INGRAM MD BIRTHDATE: [birth year] DISCHARGE MANAGEMENT: Colace 100 mg b.i.d., MiraLax 17 grams b.i.d., metoprolol 25 mg b.i.d., DuoNeb q.i.d., lisinopril 10 mg daily, Cardizem-CD 240 mg a day, apixaban 5 mg b.i.d., glipizide 10 mg daily, meclizine 25 mg t.i.d., oxycodone 20 mg b.i.d., lorazepam 1 mg t.i.d. p.r.n. for anxiety, IV vancomycin 1250 mg once daily for 6 weeks. Check vancomycin peak and trough level 2 days a week along with CBC 2 days a week and send results to Dr. An, the ID specialist to his office, consult Physical Therapy. DINA INGRAM MD CM:PALMIRA 06 [phone] DINA INGRAM MD 08/27/[id number] interface
--- NOTE | ~2017-08-19 | PR ---
[place], [place] PROGRESS NOTE NAME: CINDI ARCINIEGA UNIT #: [id number] ROOM: 519 DOCTOR: KERI CALERO MD BIRTHDATE: [birth year] DOS: SUBJECTIVE: The patient is feeling good, does not have any new complaints. Denies any chest pains, palpitations, shortness of breath. Does not have any fever or chills, does not have any abdominal pain. Wound on her left lower leg is almost completely healed. There is no drainage from that area. OBJECTIVE: VITAL SIGNS: Graphic trend shows a pressure 128/52, pulse of 88, respirations 17, temperature 99.4, T-max of 100.0. LUNGS: Diminished breath sounds, clear. HEART: Regular. ABDOMEN: Obese, soft, nontender. EXTREMITIES: Without any edema. LABORATORY DATA: Three sets of blood cultures have been drawn, so far on August 19, August 31 and another one on August 31 at different time. The second and third cultures have come back positive. Urine culture is negative. Chest x-ray done on August 21 shows no acute , atelectasis and hypoinflation. ASSESSMENT AND PLAN: 1. Sepsis with gram-positive cocci. Identification is not available yet. She is on IV vancomycin. Source of infection is unknown. This urine culture is negative which has been ruled out, we will do an echocardiogram check for subacute bacterial endocarditis, even though there are no peripheral signs of subacute bacterial endocarditis. 2. Sepsis with normalization of lactic acid. 3. Coronary artery disease. If [place] coronaries, the patient does not have any complaints of chest pains. 4. Chronic pain, on OxyContin, which is continued. A PICC line will be placed. Social Service will be consulted for placement for short-term IV antibiotics, ID following. [place], [place] PROGRESS NOTE NAME: CINDI ARCINIEGA UNIT #: [id number] ROOM: 519 DOCTOR: KERI CALERO MD BIRTHDATE: [birth year] KERI CALERO MD CM:PNTRANS [id number] KERI CALERO MD 08/23/17 0934 interface
--- NOTE | ~2017-08-19 | PR ---
[place], [place] PROGRESS NOTE NAME: CINDI ARCINIEGA UNIT #: [id number] ROOM: 524 DOCTOR: DANIEL KRISHNAMURTHY MD BIRTHDATE: [birth year] DOS: 08/25/2017 SUBJECTIVE: She has been noted with reduction of the cough and shortness breath in the last 24 hours. Denies symptoms of chest pain or hemoptysis. She was continued on intravenous antibiotic, vancomycin for the MRSA bacteremia. OBJECTIVE: VITAL SIGNS: For the patient which were recorded this morning, temperature 99.5 degrees Fahrenheit, respiratory rate 18, heart rate 85, blood pressure 135/82. Pulse oxygen saturation on 4 liters nasal cannula 93% saturation recorded. HEENT: Examination shows no new change. NECK: Supple. CARDIOVASCULAR: S1, S2 audible. LUNGS: Noted without any crackles, rhonchi, or wheezing. ABDOMEN: Soft, nontender. LABORATORY DATA: CBC this morning was noted normal electrolytes. The patient was noted normal except CO2 mildly elevated at 34. Vancomycin trough level was noted as therapeutic at 13.4. The ESR was noted as moderately elevated at 46. IMPRESSION: 1. The patient with acute methicillin-resistant Staphylococcus aureus bacteremia was noted with possibility of acute pneumonia. 2. History of type 2 diabetes mellitus. PLAN AND MANAGEMENT: Continuation of antibiotics, bronchodilators, sputum for Gram stain and culture if the patient is able to expectorate, will be sent to the lab. She is not able to expectorate any sputum at this time. She seems to be responding to current treatment gradually and progressively. The surveillance culture were taken yesterday to document the resolution of the bacteremia. The patient responded to treatment, will be continued on current treatment with bronchodilators and antibiotics. Monitor respiratory status closely. Other supportive therapy, plan and management of care. Further treatment changes will be made based on progression of the illness in today's note. [place], [place] PROGRESS NOTE NAME: CINDI ARCINIEGA UNIT #: [id number] ROOM: 524 DOCTOR: DANIEL KRISHNAMURTHY MD BIRTHDATE: [birth year] DANIEL VENCES MD CM:PNTRANS [phone] DANIEL BOWER MD 08/26/17 0403 interface
--- NOTE | ~2017-08-19 | PR ---
[place], [place] PROGRESS NOTE NAME: CINDI ARCINIEGA UNIT #: [id number] ROOM: 524 DOCTOR: PATO PHILLIPS,SCARLETT Nicholson BIRTHDATE: [birth year] DOS: 08/28/2017 ADDENDUM I agree with the above plans as described. We will follow the patient up clinically and adjust accordingly. SCARLETT WHYTE MD CM:PNTRANS [phone] SCARLETT WHYTE MD 08/28/17 1547 interface
--- NOTE | ~2017-08-19 | PR ---
[place], [place] PROGRESS NOTE NAME: CINDI ARCINIEGA UNIT #: [id number] ROOM: 524 DOCTOR: PATO PHILLIPS,SCARLETT Nicholson BIRTHDATE: [birth year] DOS: 08/27/2017 ADDENDUM. After reviewing the chart, I agree with the above plans as described. I will follow the patient up clinically and adjust accordingly. SCARLETT WHYTE MD CM:PNTRANS [phone] SCARLETT WHYTE MD 08/27/17 1222 interface
[~2017-08-19 11:01] MED LIST changes: +ATIVAN2 M1 PO; -LORAZEPAM1 MG PO
[2017-08-19 11:09] VITALS: BP 162/68
--- NOTE | 2017-08-19 11:39 | NUR ---
REMINDED PATIENT TO LEAVE A URINE SPECIMEN WHEN ABLE. STATES SHE VOIDED BEFORE ARRIVING TO THE ER.
[2017-08-19 12:05] LABS: BASO # 0.1 10*3/uL (0.0-0.1); BASO % 0.6 % (0.0-1.0); EOS # 0.1 10*3/uL (0.0-0.4); EOS % 1.1 % (1.0-4.0); HEMATOCRIT 50.3 % (37.0-47.0); HEMOGLOBIN 16.2 g/dl (12.0-16.0); LYMPH # 1.2 10*3/uL (1.3-4.4); LYMPH % 13.8 % (27.0-41.0); MEAN CORPUSCULAR HGB 29.3 pg (27.0-31.0); MEAN CORPUSCULAR HGB CONC 32.2 g/dl (33.0-37.0); MEAN PLATELET VOLUME 10.8 fl (9.6-12.3); MONO # 0.3 10*3/uL (0.1-1.0); NEUT # 6.7 10*3/uL (2.3-7.9); NEUT % 80.1 % (47.0-73.0); PLATELET COUNT AUTOMATED 229 10*3/uL (130-400); RED BLOOD COUNT 5.53 10*6/uL (4.10-5.10); RED CELL DISTRI WIDTH 14.1 % (0-14.5); WHITE BLOOD COUNT 8.4 10*3/uL (4.8-10.8)
[2017-08-19 12:21] LABS: ALBUMIN 3.3 gm/dl (3.1-4.5); ALKALINE PHOSPHATASE 135 U/L (45-117); BUN 11 mg/dl (7-24); CHLORIDE 97 mmol/L (98-107); CREATININE 0.97 mg/dL (0.55-1.02); LIPASE 107 U/L (73-393); POTASSIUM 4.1 mmol/L (3.5-5.1); SGOT/AST 13 IU/L (3-35); SGPT/ALT 24 U/L (12-78); SODIUM 134 mmol/L (136-145)
[2017-08-19 12:25] LABS: TROPONIN I < 0.015 ng/ml (<0.045)
[2017-08-19 13:48] LABS: BILIRUBIN NEGATIVE (NEGATIVE); BLOOD TRACE-LYSED (NEGATIVE); CLARITY CLEAR (CLEAR); COLOR YELLOW (YELLOW); GLUCOSE 3+ (NEGATIVE); KETONE NEGATIVE (NEGATIVE); LEUKO ESTERASE TRACE (NEGATIVE); NITRITE NEGATIVE (NEGATIVE); PH 6.5 (5.0-9.0); UROBILINOGEN 0.2 E.U./dl (0.2-1.0)
[2017-08-19 14:02] LABS: BACTERIA TRACE
--- NOTE | 2017-08-19 14:08 | NUR ---
PT COMPLAINING OF ABDOMINAL DISCOMFORT "GETTING WORSE"
[2017-08-19 16:13] VITALS: BP 139/61
--- NOTE | 2017-08-19 16:22 | NUR ---
REPORT GIVEN TO KATE FOX. PATIENT STABLE AND READY FOR TRANSPORT. LAB AT BEDSIDE TO DRAW LACTIC ACID LEVEL.
[2017-08-19 16:39] VITALS: BP 148/62
--- NOTE | 2017-08-19 16:39 | NUR ---
Time: 1638 A 71 year old FEMALE admitted to 5E under services of DR. JUAN JOSE PHILLIPS,DINA Rangel Pt. arrived via stretcher from ER. Chief complaint: DIZZINESS AT HOME AND NOT FEELING WELL FOR THE PAST FEW DAYS. KATE MCKOY
--- NOTE | 2017-08-19 16:49 | NUR ---
TRANSPORTED TO [address] [place] [address] VIA CART, MONITORED. CONDITION STABLE.
[2017-08-19] MEDS ORDERED: GLIPIZIDE10 M2 PO (16:55)
--- NOTE | 2017-08-19 17:00 | NUR ---
Pt was unsure of home medications, pt has no list and only brought home meds of ativan and glipizide with her in pharmacy bottles. She uses [facility]. I called [facility] and updated medication list from their information provided. Pt gets all meds from [facility] with exception of ativan which she had the prescription bottle for. These home meds were sent to pharmacy.
[2017-08-19] MEDS ORDERED: PERCOCET 5-3251 EACH PO (17:12)
[2017-08-19] MEDS ORDERED: OXYCODONE HCL20 M1 PO (17:13)
--- NOTE | 2017-08-19 17:21 | NUR ---
Spoke with Dr. Miguel, notified of pt complaints, labs, treatment given in ER and that home medications were updated w/ exception of lipitor which pt cant remember if she still takes and pt pharmacy states they have not filled it for a long time for pt. Pt states she sees Dr. Hobbs and she may have taken her off it but she is not sure. Dr. Miguel states he will place orders in computer.
--- NOTE | 2017-08-19 19:30 | NUR ---
PT. AWAKE, ALERT AND ORIENTED X 3 AT THIS TIME. PT. DENIES SOB, CP. STATES GENERALIZED PAIN, BUT REQUESTED PAIN MEDICATION CLOSER TO 2300. CALL LIGHT WITHIN REACH, BED IN LOWEST POSITION, WHEELS LOCKED. SEE SHIFT ASSESSMENT.
[2017-08-19 20:00] VITALS: BP 142/80
--- NOTE | 2017-08-19 23:29 | NUR ---
PT. REQUESTED PAIN MEDICATION FOR GENERALIZED PAIN 06/30. PERCOCET TAKEN FROM [facility] AT THIS TIME FOR PT. PT. REFUSED PERCOCET AFTER INITIALLY AGREEING TO TAKE IT, STATING THAT SHE "JUST TAKES OXYCODONE" AT HOME, BUT DOES NOT TAKE PERCOCET, AND REQUESTED THAT IT BE SWITCHED TO JUST OXYCODONE. OPENED PERCOCET WAS WASTED AT NURSES STATION WITH CHARGE NURSE WITNESSING WASTE.
--- NOTE | 2017-08-19 23:49 | NUR ---
SPOKE WITH DR. INGRAM AT THIS TIME REGARDING PTS REQUEST FOR OXYCODONE INSTEAD OF ORDERED PERCOCET. DR. INGRAM SAID TO ASK HER AGAIN TO TAKE THE PERCOCET TO MONITOR FOR RESULTS BEFORE HE WOULD CONSIDER SWITCHING THE MEDS.
[2017-08-20] VITALS: BP 140/68
--- NOTE | 2017-08-20 00:01 | NUR ---
YUDIET ADM. AT THIS TIME AFTER EXPLAINING TO PT. WHAT DR. INGRAM SAID. PT. AGREED TO TAKE IT FOR PAIN 06/30. WILL MONITOR FOR EFFECTIVENESS.
--- NOTE | 2017-08-20 00:57 | NUR ---
PT. SLEEPING AT THIS TIME, RESPIRATIONS EASY, NON-LABORED; NO SIGNS OF DISTRESS OF THIS TIME.
--- NOTE | 2017-08-20 03:30 | NUR ---
PT. STATED THAT HER PERCOCET WAS NOT EFFECTIVE AT THIS TIME. INITIAL ASSESSMENT OF PT. POST ADMINISTRATION WAS OF THE PT. SLEEPING, WITH EASY, UNLABORED RESPIRATIONS. PT. STATED THAT SHE WANTED THE PERCOCET CHANGED, BUT STATED THAT IT COULD WAIT UNTIL THE MORNING.
--- NOTE | 2017-08-20 04:36 | NUR ---
PT. GIVEN ATIVAN AT THIS TIME FOR FEELINGS OF ANXIOUSNESS. WILL MONITOR EFFECTS.
--- NOTE | 2017-08-20 04:50 | NUR ---
PT. REQUESTING CHANGE FROM PERCOCET TO OXYCONTIN. STATES THAT THIS IS WHAT SHE TAKES FROM THE PAIN CLINIC SCHEDULED EVERY 12 HOURS. EXPLAINED TO PT. THAT THIS WAS NOT THE MEDICATION THAT WAS DOCUMENTED ON HER MEDREC, BUT THAT IT WAS OXYCODONE INSTEAD. PT. STATED THAT SHE GETS THE NAMES CONFUSED AT TIMES, BUT WANTED THE OXYCONTIN THAT SHE IS NOW SURE THAT SHE TAKES. CALLED DR. INGRAM TO DISCUSS MED CHANGE, DR. INGRAM STATED THAT THE MED COULD BE CHANGED.
[2017-08-20] MEDS ORDERED: OXYCODONE HCL20 M1 PO ×2 (04:54→04:56)
--- NOTE | 2017-08-20 05:04 | NUR ---
SPOKE TO [facility] REGARDING SUBSTITUTE FOR OXYCODONE HCL. HE GAVE TWO RECOMENDATIONS. CALLED AND SPOKE TO DR INGRAM. ORDER RECEIVED.
--- NOTE | 2017-08-20 05:22 | NUR ---
SPOKE WITH CARDINAL AT THIS TIME TO SEE IF MED COULD BE VERIFIED FASTER PER PT. REQUEST.
--- NOTE | 2017-08-20 05:30 | NUR ---
SPOKE WITH PT. AT THIS TIME ABOUT MEDREC THAT WE HAVE. PT. WAS UPSET THAT SHE DID NOT HAVE OXYCONTIN THAT SHE GETS THROUGH THE PAIN CLINIC. THIS NURSE ASKED THE PT. IF THE MEDREC HAD BEEN GONE OVER WITH HER ON ADM. THE PT. STATED THAT SHE DID HAVE IT GONE OVER AND ADMITTED THAT SHE DOES GET MEDICATION NAMES CONFUSED. PT. STATED THAT SHE SPOKE WITH HER AND HE WAS NOT HAPPY, AND WOULD "HAVE WORDS" WITH DR. INGRAM BECAUSE OF THE MEDICATION MIX-UP. THIS NURSE EXPLAINED TO THE PT. THAT DR. INGRAM GAVE ORDERS BASED OFF OF THE MEDREC THAT SHE HAD VERIFIED ON ADM., AND WOULD NOT HAVE KNOWN ABOUT THE OXYCONTIN. THE PT. VERBALIZED UNDERSTANDING AT THIS TIME.
[2017-08-20 07:04] LABS: BASO # 0.1 10*3/uL (0.0-0.1); BASO % 0.6 % (0.0-1.0); EOS # 0.3 10*3/uL (0.0-0.4); EOS % 3.6 % (1.0-4.0); HEMATOCRIT 45.1 % (37.0-47.0); HEMOGLOBIN 14.6 g/dl (12.0-16.0); LYMPH # 2.1 10*3/uL (1.3-4.4); LYMPH % 26.2 % (27.0-41.0); MEAN CELL VOLUME 90.9 fl (81.0-99.0); MEAN CORPUSCULAR HGB 29.4 pg (27.0-31.0); MEAN CORPUSCULAR HGB CONC 32.4 g/dl (33.0-37.0); MEAN PLATELET VOLUME 11.1 fl (9.6-12.3); MONO # 0.4 10*3/uL (0.1-1.0); MONO % 5.2 % (3.0-9.0); NEUT % 64.1 % (47.0-73.0); PLATELET COUNT AUTOMATED 218 10*3/uL (130-400); RED BLOOD COUNT 4.96 10*6/uL (4.10-5.10); RED CELL DISTRI WIDTH 14.2 % (0-14.5); WHITE BLOOD COUNT 7.8 10*3/uL (4.8-10.8)
--- NOTE | 2017-08-20 08:30 | NUR ---
Yarder Operator in to talk to patient. Patient states lives at HOME with HER . There are 8 steps in the home. Physician: DR CALERO Pharmacy: [facility] Home health services: NONE Patient's level of ADLs: MINIMAL ASSIST Patient has working utilities: YES DME: CANE/NEB Follow-up physician's appointment after d/c: PREFERS TO MAKE HER OWN APPT Does patient want to access PORTAL?: Discharge plan HOME. GUICHO STRAUSS
--- NOTE | 2017-08-20 11:43 | NUR ---
PHYSICAL THERAPY PAtient requests no PT this date. " I do not feel well." Thank you for this referral. Ai Lang,PT
[2017-08-20 12:00] VITALS: BP 147/56
--- NOTE | 2017-08-20 12:16 | NUR ---
Ativan given per prn order for c/o anxiety.
--- NOTE | 2017-08-20 13:20 | NUR ---
States that medication was effective for anxiety.
--- NOTE | 2017-08-20 15:09 | NUR ---
Pt states that pt also takes a nebulizer at home, states she isnt receiving it here. States at home she was taking it at night. I notified pt that I had spoke with [facility] pharmacy last night to verify home medications as pt did not remember what she was taking. PT states she does not receive the nebulizer medication at [facility] but obtains it from [facility] in [place]. I spoke with Star the pharmacist there and she states that they last filled if for pt August 2016 and it was duoneb 1 vial TID. She states it is still an active prescription but pt has not had it filled since last august.
[2017-08-20] MEDS ORDERED: DUONEB 3 MG/3 ML3 M1 INH (15:12)
[2017-08-20 16:00] VITALS: BP 144/70
--- NOTE | 2017-08-20 16:20 | NUR ---
DR. INGRAM IN AND EXAMINED PT.
[2017-08-20 20:00] VITALS: BP 144/61
[2017-08-21] VITALS: BP 155/62
--- NOTE | 2017-08-21 01:17 | NUR ---
24 HR chart check completed.
--- NOTE | 2017-08-21 08:50 | NUR ---
SPOKE WITH DR. CABRERA REGARDING ELEVATED TEMP, AND NAUSEA WITH EMESIS X2. ORDERS RECEIVED FOR IV ZOFRAN, PO TYLENOL, BLOOD CULTURES STAT, UA REFLEX, CHEST X-RAY.
--- NOTE | 2017-08-21 09:21 | NUR ---
PATIENT GIVEN TYLENOL AND ZOFRAN PRN FOR NAUSEA AND ELEVATED TEMP.
--- NOTE | 2017-08-21 09:28 | NUR ---
PATIENT IS RESTING IN BED. PATIENT HAS HAD NAUSEA ON AND OFF THROUGHOUT THE NIGHT WITH EMESIS X2. PATIENT DENIES ANY PAIN OR SOB AT THIS TIME. PATIENT HAD A TEMP THAT HAS CONTINUED TO ELEVATE THROUGHOUT THE NIGHT. PATIENT HAS NO FURTHER COMPLAINTS AT THIS TIME, CALL LIGHT IS WITHIN REACH, SEE SHIFT ASSESSMENT.
[2017-08-21 12:00] VITALS: BP 121/42
--- NOTE | 2017-08-21 14:48 | NUR ---
PHYSICAL THERAPY PAtient continues to be too ill for PT. Ai mooney,PT
--- NOTE | 2017-08-21 14:59 | NUR ---
PATIENT IS RESTING COMFORTABLY IN BED. PATIENT HAS A FAMILY MEMBER AT THE BEDSIDE. PATIENT HAS HAD NO MORE EPISODES OF NAUSEA OR EMESIS SINCE THIS MORNING. PATIENT DENIES ANY PAIN OR DISCOMFORT. HOB IS ELEVATED, CALL LIGHT WITHIN REACH.
[2017-08-21 16:00] VITALS: BP 126/47
--- NOTE | 2017-08-21 18:47 | NUR ---
PATIENT IS RESTING COMFORTABLY IN BED. PATIENT IS ABLE TO REPOSITIONS SELF AND IS RECEIVING 2LPM VIA NC AND HOB ELEVATED. PATIENT HAS HAD NO FURTHER COMPLAINTS OF NAUSEA PAST THIS MORNING AND NO MORE EPISODES OF EMESIS. PATIENT HAS NO COMPLAINTS OF PAIN OR DISCOMFORT AT THIS TIME. PATIENT HAS NO FURTHER REQUESTS AT THIS TIME, CALL LIGHT SYSTEM REINFORCED. SEE SHIFT ASSESSMENT.
--- NOTE | 2017-08-21 19:56 | NUR ---
PATIENT MEDICATED WITH TYLENOL AND ZOFRAN PER PRN ORDER FOR C/O NAUSEA/ ADDOMINAL DISCOMFORT AND ELEVATED TEMP OF 101.8. SEE EMAR. REINFORCED USE OF CALL LIGHT.
[2017-08-21 20:00] VITALS: BP 134/77
[2017-08-21 23:25] LABS: BILIRUBIN 1+ (NEGATIVE); BLOOD TRACE-INTACT (NEGATIVE); CLARITY SL CLOUDY (CLEAR); COLOR YELLOW (YELLOW); GLUCOSE NEGATIVE (NEGATIVE); KETONE TRACE (NEGATIVE); LEUKO ESTERASE TRACE (NEGATIVE); NITRITE NEGATIVE (NEGATIVE); SPECIFIC GRAVITY 1.025 (1.005-1.030)
[2017-08-21 23:38] LABS: BACTERIA 2+
[2017-08-22] VITALS: BP 123/52
--- NOTE | 2017-08-22 01:09 | NUR ---
MESSAGE LEFT ON DR. CALERO'S ANSWERING MACHINE REGARDING PRELIMINARY POSITIVE ANAEROBIC BLOOD CULTURE RESULTS.
--- NOTE | 2017-08-22 03:42 | NUR ---
DR. CALERO RETURNED CALL. NOTIFIED OF BLOOD CULTURE RESULTS. ORDERS RECEIVED.
--- NOTE | 2017-08-22 07:56 | NUR ---
MEDICATED IV SLOWLY ORDERED PER PT REQUEST WITH ZOFRAN FOR C/O NAUSEA. SEE EMAR.
[2017-08-22 08:00] VITALS: BP 98/48
--- NOTE | 2017-08-22 08:09 | NUR ---
PT IS ORIENTED X3 BUT HAS MILD EXPRESSIVE APHASIA. ADMITS TO NAUSEA, DENIES ABD PAIN. ABD SOFT WTIH ACTIVE BOWEL SOUNDS THROUGHOUT. BEDALARM & YELLOW SOCKS FOR PT SAFETY. SEE SHIFT ASSESSMENT.
--- NOTE | 2017-08-22 11:27 | NUR ---
PHYSICAL THERAPY PAtient requests no PT at this time. Will attempt at a later time or date. Thank you for this referral. Ai Lang,PT
[2017-08-22 12:00] VITALS: BP 114/49
--- NOTE | 2017-08-22 13:44 | NUR ---
ATE & TOLERATED MEALS WITH NO FURTHER VOICED C/O NAUSEA OFFERED. CONTINUES TO DENY DIZZINESS.
[2017-08-22 16:00] VITALS: BP 131/47
--- NOTE | 2017-08-22 16:16 | NUR ---
MEDICATED PO ORDERED PER PT REQUEST WITH TYLENOL FOR INCREASED TEMPERATURE & FRONTAL OCASIO. SEE EMAR.
--- NOTE | 2017-08-22 17:13 | NUR ---
DR INGRAM IN TO SEE PT & AWARE OF POSITIVE BLOOD CULTURES. NEW ORDERS RECEIVED.
--- NOTE | 2017-08-22 17:16 | NUR ---
SPOKE TO ALFREDO AT DR HELM'S ANSWERING SERVICE REGARDING CONSULT.
--- NOTE | 2017-08-22 17:20 | NUR ---
SPOKE WITH DR HELM REGARDING POSITIVE BLOOD CULTURES WELL LOW GRADE FEVER, NEW ORDERS RECEIVED.
--- NOTE | 2017-08-22 18:20 | NUR ---
MEDICATION EFFECTIVE IN RELIEVING OCASIO PER PT.
[2017-08-22 20:00] VITALS: BP 106/48
[2017-08-23] VITALS: BP 110/80
[2017-08-23 06:34] LABS: BASO % 0.4 % (0.0-1.0); EOS # 0.4 10*3/uL (0.0-0.4); EOS % 4.6 % (1.0-4.0); HEMATOCRIT 39.5 % (37.0-47.0); HEMOGLOBIN 12.6 g/dl (12.0-16.0); LYMPH # 0.8 10*3/uL (1.3-4.4); LYMPH % 10.3 % (27.0-41.0); MEAN CELL VOLUME 92.1 fl (81.0-99.0); MEAN CORPUSCULAR HGB 29.4 pg (27.0-31.0); MEAN CORPUSCULAR HGB CONC 31.9 g/dl (33.0-37.0); MEAN PLATELET VOLUME 11.4 fl (9.6-12.3); MONO # 0.6 10*3/uL (0.1-1.0); MONO % 7.2 % (3.0-9.0); NEUT % 77.2 % (47.0-73.0); PLATELET COUNT AUTOMATED 141 10*3/uL (130-400); RED BLOOD COUNT 4.29 10*6/uL (4.10-5.10); RED CELL DISTRI WIDTH 14.6 % (0-14.5); WHITE BLOOD COUNT 7.7 10*3/uL (4.8-10.8)
--- NOTE | 2017-08-23 07:41 | NUR ---
ACLS NURSE VS AND DISCUSSED POSS NEED FOR IV ATB AFTER DC. PT CHOOSES [facility]. SHE IS ALERT AND ORIENTED. DOES NOT WANT ME TO CALL HER HE WAS UP LATE LAST NIGHT WATCHING UP MOVIE. WILL ASK DR INGRAM FOR SNF ORDER AND PICC LINE IF IV ATB NEEDED. DC AMBULANCE OFFICER WILL MAKE REFERRAL. PT IS MEDICARE AND WILL NOT NEED INSURANCE PRECERT. ALREADY HAS 3 NIGHT STAY.
[2017-08-23 08:00] VITALS: BP 122/58; BP 128/52
--- NOTE | 2017-08-23 08:01 | NUR ---
SPOKE WITH BEVERLY AT DR LAMAR'S OFFICE REGARDING POSITIVE BC FOR MRSA.
--- NOTE | 2017-08-23 08:07 | NUR ---
DISCUSSED ISOLATION PRECAUTIONS WITH PT & MAKING SURE THAT HER VISITORS WEAR PPE WELL. PT VOICES UNDERSTANDING.
--- NOTE | 2017-08-23 08:14 | NUR ---
Patient referral sent to [facility], waiting on accptance.
--- NOTE | 2017-08-23 08:37 | NUR ---
DR CALERO IN TO SEE PT & IS AWARE OF BC RESULTS.
--- NOTE | 2017-08-23 08:46 | NUR ---
PHYSICAL THERAPY PAtient eating breakfast at this time. Ai Lang,PT
--- NOTE | 2017-08-23 09:36 | NUR ---
PHYSICAL THERAPY PAtient evaluated on 5, full evaluation to follow. Continue with PT as per plan of care with fall, MRSA + blood and acute debility precautions. Home with and home health RN and PT versus SNF. PAtient is moderate complexity via chart review, test and evaluation: 11538. Thank you for this referral. Ai Lang,PT
--- NOTE | 2017-08-23 09:44 | NUR ---
LEFT OUTER ANKLE HAS HEALED INCISION WHERE HARDWARE WAS TAKEN OUT OF HER FOOT IN May. SITE ASYMPTOMATIC.
--- NOTE | 2017-08-23 10:40 | NUR ---
[facility] stated they will need to know which ATB patient will be on, dose/frequecy prior to accepting this patient. Will follow
--- NOTE | 2017-08-23 10:53 | NUR ---
Hospital exemption completed online in [employer] system. Waiting on acceptance from [facility]
[2017-08-23 12:00] VITALS: BP 135/55
--- NOTE | 2017-08-23 12:37 | NUR ---
DISCUSSED IN DETAIL ISOLATION PRECAUTIONS WITH , HE IS UNINTERESTED IN BEING COMPLIANT.
--- NOTE | 2017-08-23 12:50 | NUR ---
Up to discuss snf placement for IV ATB with patient and . Patient not understanding. She thought when we discussed going to [facility] that it meant going and picking up her ATB at the pharmacy in [facility]. She couldn't understand the concept of "staying" in [facility] for IV therapy. at bedside stated he would never consider sending her to a nursing facility. Given the other two options of outpatient here at the hospital or giving them at home via home health teaching him, he stated he is a fast learner and he will be fine with giving her the IV ATB. I explained the process of setting up IV ATB for home and the home health teaching part and that it takes a little bit of time to set up, so it wouldn't happen until Saturday. He was fine with that.
--- NOTE | 2017-08-23 13:53 | NUR ---
STAFF FROM OR HERE TO INSERT PICC LINE, PER PT & HER , "A DR SAID THAT SHE WAS GOING HOME ON PILLS NOT IV ABX" THIS INFORMATION HAS NOT BEEN COMMUNICATED TO THIS RN. CALLED DR LAMAR'S OFFICE FOR CLARIFICATION. SPOKE WITH STAFF AT DR LAMAR'S OFFICE REGARDING THIS ISSUE, WILL AWAIT FURTHER ORDERS. TESSIE MUHAMMAD AWARE OF ISSUE.
--- NOTE | 2017-08-23 14:04 | NUR ---
SPOKE WITH DR LAMAR REGARDING PICC LINE INSERTION, PER DR LAMAR, DO NOT INSERT PICC LINE AT THIS TIME. IS SPEAKING WITH ON TELEPHONE REGARDING PLAN OF CARE.
--- NOTE | 2017-08-23 14:48 | NUR ---
JEREMIE AT DR BENDER'S OFFICE NOTIFIED OF CONSULT.
[2017-08-23 16:00] VITALS: BP 128/53
--- NOTE | 2017-08-23 16:42 | NUR ---
DR BENDER IN TO SEE PT.
--- NOTE | 2017-08-23 17:38 | NUR ---
DR BENDER NOTIFIED THAT HR IS 130'S-150'S AT TIMES. NO NEW ORDERS.
--- NOTE | 2017-08-23 17:43 | NUR ---
PRN TYLENOL FOR LOW GRADE FEVER. SEE EMAR.
--- NOTE | 2017-08-23 18:12 | NUR ---
AMBULATORY TO BR WITH ASSIST, HR INCREASES PER DIRECTOR EDUCATIONAL RADIO. PT PUSHING TO TRY TO HAVE A BM. PT IS ASYMPTOMATIC. DENIES CHEST PAIN, NO S.O.B OR DIAPHORESIS NOTED. BACK TO BED, BEDALARM IN USE FOR PT SAFETY.
[2017-08-23 20:00] VITALS: BP 112/61
--- NOTE | 2017-08-23 20:30 | NUR ---
SPOKE WITH DR. MELLO REGARDING ELVATED HEART RATE. ORDERS RECEIVED.
--- NOTE | 2017-08-23 22:00 | NUR ---
PATIENT RESTING QUIETLY. NO S/S OF DISTRESS. HR REGULAR WITH RATE OF 69. REINFORCED USE OF CALL LIGHT.
[2017-08-24] VITALS: BP 108/50
[2017-08-24 06:29] LABS: BUN 15 mg/dl (7-24); CREATININE 0.68 mg/dL (0.55-1.02)
--- NOTE | 2017-08-24 06:29 | NUR ---
DR. CALERO NOTIFIED OF CRITICAL LAB MRSA BLOOD CULTURE RESULT.
[2017-08-24 07:52] LABS: BASO % 0.5 % (0.0-1.0); EOS # 0.3 10*3/uL (0.0-0.4); EOS % 4.1 % (1.0-4.0); HEMATOCRIT 37.4 % (37.0-47.0); HEMOGLOBIN 11.8 g/dl (12.0-16.0); LYMPH # 1.5 10*3/uL (1.3-4.4); LYMPH % 20.4 % (27.0-41.0); MEAN CELL VOLUME 93.3 fl (81.0-99.0); MEAN CORPUSCULAR HGB 29.4 pg (27.0-31.0); MEAN CORPUSCULAR HGB CONC 31.6 g/dl (33.0-37.0); MEAN PLATELET VOLUME 11.7 fl (9.6-12.3); MONO # 0.7 10*3/uL (0.1-1.0); NEUT # 4.8 10*3/uL (2.3-7.9); NEUT % 65.7 % (47.0-73.0); PLATELET COUNT AUTOMATED 147 10*3/uL (130-400); RED BLOOD COUNT 4.01 10*6/uL (4.10-5.10); RED CELL DISTRI WIDTH 14.8 % (0-14.5); WHITE BLOOD COUNT 7.4 10*3/uL (4.8-10.8)
[2017-08-24 08:00] VITALS: BP 132/56
[2017-08-24 08:03] LABS: BUN 16 mg/dl (7-24); CHLORIDE 104 mmol/L (98-107); CREATININE 0.72 mg/dL (0.55-1.02); POTASSIUM 4.1 mmol/L (3.5-5.1); SODIUM 141 mmol/L (136-145)
--- NOTE | 2017-08-24 08:57 | NUR ---
DR. VENCES NOTIFIED OF CONSULT.
--- NOTE | 2017-08-24 11:09 | NUR ---
DR. VENCES IN TO SEE PT.
--- NOTE | 2017-08-24 15:00 | NUR ---
PT REQUESTED MEDICATION FOR EPIGASTRIC PAIN. PT STATES "I ALWAYS GET THIS PAIN RIGHT BEFORE MY OXY IS DUE." PT RATES PAIN AT 8 OUT OF 10, THROBBING AND INTERMITTENT. WILL CONTINUE TO MONITOR.
[2017-08-24 16:00] VITALS: BP 142/56
--- NOTE | 2017-08-24 17:36 | NUR ---
PT OFF FLOOR FOR CHEST CT.
--- NOTE | 2017-08-24 17:50 | NUR ---
PT RETURNED TO ROOM/FLOOR.
[2017-08-24 20:00] VITALS: BP 141/56
--- NOTE | 2017-08-24 21:23 | NUR ---
CALLED DR. TOVAR ON AN 02 10/22 LITERS ORDER BECAUSE THEY WERE NOT IN. HE GAVE THE GO AHEAD. WILL TABBY TO MONITOR PT.
[2017-08-24 21:45] VITALS: BP 147/90
--- NOTE | 2017-08-24 21:45 | NUR ---
PT'S HR UP TO 100-130'S PER MONIROT TECH. WENT IN ROOM, ASSESSED PT, GOT VITALS, AND CHECKED STABILITY. PT STABLE AND RESTING AT MOMENT. WILL CONINUE TO MONITOR.
--- NOTE | 2017-08-24 22:12 | NUR ---
PT IN AFIB. PT ASSESSED. PT STABLE AND NO DISTRESS OR CP NOTED. DR. BRITO NOTIFIED. ORDERS ARE TO SCHEDULE ECHO TOMORROW MORNING, AND CONTACT CARDIOLOGY.
--- NOTE | 2017-08-24 22:27 | NUR ---
DIRECTOR LONG TERM CARE CALLED AND INFORMED OF AFIB AND INCREASED HR. HR WAS CHECKED AGAIN AND WAS DOWN TO 80'S. NO NEW ORDERS GIVEN. WILL CONINUE TO MONITOR PT.
--- NOTE | 2017-08-24 22:31 | NUR ---
DR. BRITO NOTIFIED THAT ECHO CARDIOGRAM IS PENDING. WILL MIKEYINUE TO MONITOR PT.
[2017-08-25] VITALS: BP 165/63
--- NOTE | 2017-08-25 01:30 | NUR ---
PT GIVEN ZOFRAN PRN FOR NAUSUA. WILL CONINUE TO MONITOR PT.
--- NOTE | 2017-08-25 04:00 | NUR ---
DR. COOK NOTIFIED OF NAUSUEA PER PT. PHENERGAN 25MG ORDERED PRN. WILL CONINUE TO MONITOR PT.
--- NOTE | 2017-08-25 04:40 | NUR ---
PT GIVEN PRN PHENERGAN FOR NAUSEA. ALL INSTRUCTIONS FOLLOWED WILL CONINUE TO MONITOR.
--- NOTE | 2017-08-25 05:36 | NUR ---
VANCO ON HOLD UNTIL NEW TROUGH IS DRAWN. WILL CONINUE TO MONITOR PT.
[2017-08-25 05:46] LABS: BASO % 0.5 % (0.0-1.0); EOS # 0.2 10*3/uL (0.0-0.4); EOS % 2.3 % (1.0-4.0); HEMATOCRIT 39.8 % (37.0-47.0); HEMOGLOBIN 12.7 g/dl (12.0-16.0); LYMPH # 1.7 10*3/uL (1.3-4.4); LYMPH % 19.5 % (27.0-41.0); MEAN CELL VOLUME 91.9 fl (81.0-99.0); MEAN CORPUSCULAR HGB 29.3 pg (27.0-31.0); MEAN CORPUSCULAR HGB CONC 31.9 g/dl (33.0-37.0); MEAN PLATELET VOLUME 11.3 fl (9.6-12.3); MONO # 0.7 10*3/uL (0.1-1.0); MONO % 7.9 % (3.0-9.0); NEUT % 69.5 % (47.0-73.0); PLATELET COUNT AUTOMATED 167 10*3/uL (130-400); RED BLOOD COUNT 4.33 10*6/uL (4.10-5.10); RED CELL DISTRI WIDTH 14.4 % (0-14.5); WHITE BLOOD COUNT 8.6 10*3/uL (4.8-10.8)
[2017-08-25 05:51] LABS: POTASSIUM 3.6 mmol/L (3.5-5.1); VANCOMYCIN TROUGH 13.4 ug/mL (10-20)
--- NOTE | 2017-08-25 06:01 | NUR ---
NOTIFIED OF HIGH TROP LEVEL OF 0.079. NO NEW ORDERES AT THIS TIME. WILL CONTINUE TO MONITOR.
[2017-08-25 07:34] VITALS: BP 139/39
[2017-08-25 12:00] VITALS: BP 135/82
[2017-08-25 16:00] VITALS: BP 110/76
--- NOTE | 2017-08-25 18:06 | NUR ---
PT IN BED, SLEEPING. NO DISTRESS NOTED. SCHEDULED PAIN MEDICATION EFFECTIVE.
--- NOTE | 2017-08-25 18:18 | NUR ---
PT IN BED, SITTING UPRIGHT EATING AND WATCHING TV. PT IN NO OBVIOUS DISTRESS. MOIST COUGH NOTED. PER PT, COUGH IS NON-PRODUCTIVE.
--- NOTE | 2017-08-25 19:50 | NUR ---
PATIENT AWAKE IN BED, ALERT AND ORIENTED X3 AT THIS TIME. PATIENT DENIES ANY NEW PAIN/SOB. CURRENTLY ON 3.5L NC. NO S/S OF DISTRESS NOTED. WILL MONITOR PATIENT. CALL LIGHT LEFT IN REACH.
[2017-08-25 20:00] VITALS: BP 154/51
--- NOTE | 2017-08-25 21:33 | NUR ---
PATIENT REQUESTED AND RECEIVED PO ATIVAN PER PRN ORDER FOR C/O ANXIETY. PO TYLENOL ALSO ADMINISTERED PER PRN ORDER FOR TEMP 100.0. WILL MONITOR EFFECTIVENESS OF MEDICATIONS. CALL LIGHT LEFT IN REACH.
--- NOTE | 2017-08-25 22:37 | NUR ---
EARLIER MEDICATION APPEARS EFFECTIVE. PATIENT ASLEEP IN BED AT THIS TIME. RESPIRATIONS EASY, NO S/S OF DISTRESS NOTED. WILL MONITOR. CALL LIGHT IN REACH.
--- NOTE | 2017-08-25 23:50 | NUR ---
EARLIER PO TYLENOL EFFECTIVE. ORAL TEMP NOW 98.3. PATIENT'S O2 SATURATION 91% ON 4L NC. TURNED UP TO 4.5L AT THIS TIME. WILL MONITOR PATIENT. CALL LIGHT LEFT IN REACH.
[2017-08-26] VITALS (9 sets, daily range): BP systolic 109–176; BP diastolic 54–79
--- NOTE | 2017-08-26 09:06 | NUR ---
PHYSICAL THERAPY Patient was seen this am 1:1 for therapy supine in bed with continuos O2-5L via NC and IV treatment. Patient reports B cervical pain which refers down her spine to mid Thoracic area upon movement 4/10 and also c/o dry lips. Patient needed a little encouragement this morning for active participation and transfers sup to sit EOB Mod A x 1. Patient declined all standing activities stating she felt too tired and weak, however performed seated AROM therex, B LE, all planes x 15 reps each to increase LE strength. Patient returned to supine to bed and remained with call light, telephone and tray table. Will continue per POC as tolerated, total treatment time 18 minutes. Dayne De Leon, METAL TILE SETTER
--- NOTE | 2017-08-26 13:29 | NUR ---
PHYSICAL THERAPY CO-SIGN I approve of the Phyical Therapy notes written above. ROSY DENG PT
--- NOTE | 2017-08-26 15:07 | NUR ---
PHYSICAL THERAPY Patient was visiting with family member when first approached for pm therapy and was out of room for MRI upon second attmept at 2:55 pm. Will continue per POC as tolerated. Dayne De Leon, NURSING COORDINATOR
[2017-08-27] VITALS: BP 141/61
[2017-08-27 06:40] LABS: BASO # 0.1 10*3/uL (0.0-0.1); BASO % 0.9 % (0.0-1.0); EOS # 0.5 10*3/uL (0.0-0.4); EOS % 5.5 % (1.0-4.0); HEMATOCRIT 37.6 % (37.0-47.0); LYMPH # 1.5 10*3/uL (1.3-4.4); LYMPH % 15.7 % (27.0-41.0); MEAN CELL VOLUME 92.2 fl (81.0-99.0); MEAN CORPUSCULAR HGB 29.4 pg (27.0-31.0); MEAN CORPUSCULAR HGB CONC 31.9 g/dl (33.0-37.0); MEAN PLATELET VOLUME 11.1 fl (9.6-12.3); MONO # 0.6 10*3/uL (0.1-1.0); MONO % 6.2 % (3.0-9.0); NEUT # 6.6 10*3/uL (2.3-7.9); NEUT % 70.8 % (47.0-73.0); PLATELET COUNT AUTOMATED 212 10*3/uL (130-400); RED BLOOD COUNT 4.08 10*6/uL (4.10-5.10); RED CELL DISTRI WIDTH 14.2 % (0-14.5); WHITE BLOOD COUNT 9.3 10*3/uL (4.8-10.8)
[2017-08-27 07:05] LABS: BUN 11 mg/dl (7-24); CHLORIDE 99 mmol/L (98-107); CREATININE 0.65 mg/dL (0.55-1.02); POTASSIUM 3.4 mmol/L (3.5-5.1); SODIUM 138 mmol/L (136-145)
[2017-08-27 08:00] VITALS: BP 154/58
--- NOTE | 2017-08-27 08:00 | NUR ---
PT AWAKE. ASSESSMENT COMPLETE. NO PT COMPLAINTSAT THIS TIME.
--- NOTE | 2017-08-27 10:18 | NUR ---
PHYSICAL THERAPY Patient seen this am 1:1 for therapy, supine in bed with continuos O2-5L via NC. Patient reports no c/o's pain and stated she was just given something to promote healthy BM. Patient transfers sup to sit EOB SBA x 1, performing seated B LE therex, all planes 2 x 10 each to increase LE strength. Patient also completed several sit to stand transfers, SBA x 1 and ambulated 25'x 3, in room without AD, CGA x 1, navigating with extended O2 hose, requiring v/c for improved safety awareness as to not get tangled up or trip on hose. MRSA isolation precautions taken this visit by therapist as patient returned to supine in bed, remaining with call light, tray table and telephone. Will continue per POC as tolerated to improve safe, funtional mobility with increased activity tolerance. Dayne De Leon, PERINATAL SOCIAL WORKER
--- NOTE | 2017-08-27 11:02 | NUR ---
DR INGRAM AND ID CLEARED FOR DC TODAY. PICC LINE WILL BE PLACED. SPOKE WITH AND HE CHOSE [facility]. SPOKE WITH BEVERLY THERE AND ACCEPTED. AWARE OF DC LATER TODAY AND START VANC TOMORROW AT 10AM. PAPERWORK AND SCRIPT TO [facility]. SPOKE TO [place]TE THERE. SHE WILL CALL BACK AFTER SHE RUNS BENEFITS.
[2017-08-27 12:00] VITALS: BP 153/60
--- NOTE | 2017-08-27 12:07 | NUR ---
PER CORETTA AT [facility], PT WOULD HAVE $1608.00 COPAY FOR HOME [facility]. NOW REQUESTS SNF STAY AT [facility]. WILL MAKE REFERRAL AND SEE IF SHE CAN GO TODAY.
--- NOTE | 2017-08-27 12:09 | NUR ---
[facility], [facility], DR INGRAM AND NURSE AWARE OF SNF REFERRAL.
--- NOTE | 2017-08-27 12:22 | NUR ---
Patient referral faxed to [facility], waiting on acceptance.
--- NOTE | 2017-08-27 13:46 | NUR ---
PHYSICAL THERAPY Patient was having lunch upon therapist first attempt for pm therapy visit and having patient care when approached for second attempt. Will continue per pOC as able. Dayne De Leon, LIGHTING DIRECTOR
--- NOTE | 2017-08-27 13:46 | NUR ---
SPOKE WITH DR. CALERO ABOUT RENEWING THE PT'S ATIVAN AND OXY. DR. CALERO CONTINUED MEDS PER T/O
--- NOTE | 2017-08-27 14:09 | NUR ---
ADMINISTERED PO ATIVAN PER PT REQUEST FOR ANXIETY R/T PICC PLACEMENT. WILL MONITOR FOR EFFECTIVENESS.
--- NOTE | 2017-08-27 15:00 | NUR ---
Patient resting quietly with no c/o discomfort. Respirations easy and regular. Vital signs stable. No overt distress. TAYLOR MARTIN
--- NOTE | 2017-08-27 15:06 | NUR ---
CALLED DR CALERO AND RECEIVED ORDER TO USE PICC LINE
--- NOTE | 2017-08-27 15:06 | NUR ---
Patient has been accepted to [facility] and can go when ready for discharge.
[2017-08-27 16:00] VITALS: BP 151/51
--- NOTE | 2017-08-27 18:25 | NUR ---
SPOKE TO DR WHYTE PER REQUEST OF DR INGRAM TO VERIFY DISCHARGE ORDERS. PER DR WHYTE PT IS TO CONTINUE IV VANCOMYCIN 1250 MG DAILY, PEAK AND TROUGH ARE TO BE DRAWN EVERY SATURDAY AND SATURDAY. CBC WITH DIFF AND CMP ARE ALSO TO BE DRAWN ON MONDAYS AND THURSDAYS. PT IS TO FOLLOW UP IN DR JOAQUIN OFFICE IN 2 WEEKS.
[2017-08-27] MEDS ORDERED: LORAZEPAM1 MG PO (18:54)
[2017-08-27] MEDS ORDERED: OXYCONTIN20 M1 PO (18:54)
--- NOTE | 2017-08-27 19:16 | NUR ---
ATTEMPTED TO CONTACT [facility] 3 TIMES VIA PHONE @ [phone]. NO ANSWER. WILL TRY AGAIN.
[2017-08-27 20:00] VITALS: BP 142/88
--- NOTE | 2017-08-27 20:25 | NUR ---
ATTEMPTED TO CONTACT [facility] STAFF AGAIN AT THIS TIME. NO ANSWER.
--- NOTE | 2017-08-27 21:30 | NUR ---
SHANNAN FROM [facility] FINALLY RETURNED PHONE CALL AFTER PAGING [facility] TO CONTACT THEM. PER SHANNAN, THEIR PHONES HAVE NOT BEEN WORKING. RECEIVED ALTERNATE PHONE NUMBER TO USE AT THIS TIME: [phone]. SEEING THOUGH IT IS 9:30 PM, PATIENT DOES NOT WANT TO BE TRANSFERRED TO THE FACILITY THIS LATE. NOTIFIED OF SITUATION/DELAY WITH DISCHARGE. PER , OKAY TO DISCHARGE PATIENT TOMORROW MORNING.
--- NOTE | 2017-08-27 22:45 | NUR ---
PATIENT MEDICATED WITH PO ATIVAN FOR C/O ANXIETY. WILL MONITOR EFFECTIVENESS. CALL LIGHT LEFT IN REACH.
--- NOTE | 2017-08-27 23:26 | NUR ---
PATIENT STATES EARLIER MEDICATION WAS EFFECTIVE. WILL CONTINUE TO MONITOR. CALL LIGHT LEFT IN REACH.
[2017-08-28] VITALS: BP 132/58
--- NOTE | 2017-08-28 04:19 | NUR ---
PATIENT ASLEEP IN BED. RESPIRATIONS EASY. NO S/S OF DISTRESS NOTED ON 4L NC. WILL MONITOR. CALL LIGHT LEFT IN REACH.
--- NOTE | 2017-08-28 07:59 | NUR ---
ATTEMPTED TO CALL DR. CALERO AT THIS TIME. CALLED BACK UP TO FLOOR AND STATES SHE WILL BE UP IN 10 MINUTES. AM SHIFT RN TO NOTIFY ABOUT AFIB WITH RVR. WILL ATTEMPT TO CALL TO UPDATE HIM WELL.
[2017-08-28 08:00] VITALS: BP 160/76
--- NOTE | 2017-08-28 08:08 | NUR ---
AWARE OF PATIENT GOING INTO AFIB WITH RVR HIGH 153. INSTRUCTED TO MAKE SURE STRIPS ARE IN CHART AND HE WILL SEE PATIENT WHEN HE COMES IN TODAY.
--- NOTE | 2017-08-28 08:20 | NUR ---
PT SITTING UP EATING BREAKFAST. NO VOICED C/O, WILL MONITOR
[2017-08-28 12:00] VITALS: BP 142/80
--- NOTE | 2017-08-28 12:18 | NUR ---
SPOKE WITH DR INGRAM REGARDING PT IN A FIB THIS AM .
--- NOTE | 2017-08-28 12:22 | NUR ---
In to see patient, at bedside. Patient will be discharged after released from cardiology standpoint. will transport.
--- NOTE | 2017-08-28 13:15 | NUR ---
PHYSICAL THERAPY Tamiko seen this AM and just going to stay in bed this AM therapy visit, just tired, will stop back later. WILLARD SHAFER HOUSEKEEPER AND LAUNDRY ASSISTANT.
--- NOTE | 2017-08-28 13:18 | NUR ---
PHYSICAL THERAPY Tamiko seen this PM 1:1 for her therapy session, Pt supine in bed, present. Said that she is being D/C this afternoon and was going to stay in bed until she leaves this afternoon. WILLARD SHAFER CRUISE STAFF MEMBER.
--- NOTE | 2017-08-28 16:54 | NUR ---
DR BENDER HERE TO SEE PT. STATES THAT SHE CAN BE DC'D FROM HIS STANDPOINT
--- NOTE | 2017-08-28 17:05 | NUR ---
REPORT CALLED TO [facility]
--- NOTE | 2017-08-28 17:50 | NUR ---
CALLED [facility] AND SPOKE WITH LADAN. NOTIFIED HER THAT PT BEING PICKED UP IN 1/2 HR
--- NOTE | 2017-08-28 18:25 | NUR ---
Discharge instructions reviewed with patient/family. Patient receptive and verbalizes understanding. Follow-up care arranged. Written instructions given to patient/family. ZAIDA BURKETT
--- NOTE | 2017-08-28 18:25 | NUR ---
PT LEAVING TO GO TO [facility] VIA AMBULANCE
--- NOTE | 2017-08-29 07:49 | NUR ---
PHYSICAL THERAPY CO-SIGN I approve of the Phyical Therapy notes written above. ROSY DENG PT
== END 2017-08-28 18:25 | disposition other institution (70) | DRG 871 ==
LOC: ED 11:01 → EDHOLD 15:20 → 5E 15:20
PROVIDERS: Family Medicine; Internal Medicine; Internal Medicine Cardiovascular Disease; Physician Assistant; ADMIT Internal Medicine
PROC: B24BZZ4 Ultrasonography of Heart with Aorta, Transesophageal (ICD-10-PCS; principal; 2017-08-26)
PROC: 02HV33Z Insertion of Infusion Device into Superior Vena Cava, Percutaneous Approach (ICD-10-PCS; 2017-08-27)
DX: A41.02 Sepsis due to Methicillin resistant Staphylococcus aureus (principal); J18.9 Pneumonia, unspecified organism; I48.0 Paroxysmal atrial fibrillation; E11.69 Type 2 diabetes mellitus with other specified complication; J44.9 Chronic obstructive pulmonary disease, unspecified; M46.22 Osteomyelitis of vertebra, cervical region; I82.502 Chronic embolism and thrombosis of unspecified deep veins of left lower extremity; N30.90 Cystitis, unspecified without hematuria; E86.0 Dehydration; M48.02 Spinal stenosis, cervical region; B96.4 Proteus (mirabilis) (morganii) as the cause of diseases classified elsewhere; I10 Essential (primary) hypertension; K21.0 Gastro-esophageal reflux disease with esophagitis; I25.10 Atherosclerotic heart disease of native coronary artery without angina pectoris; R10.13 Epigastric pain; G89.4 Chronic pain syndrome; E78.2 Mixed hyperlipidemia; F41.1 Generalized anxiety disorder; F17.200 Nicotine dependence, unspecified, uncomplicated; B95.8 Unspecified staphylococcus as the cause of diseases classified elsewhere; E66.9 Obesity, unspecified; T40.2X5A Adverse effect of other opioids, initial encounter; K59.03 Drug induced constipation; M50.30 Other cervical disc degeneration, unspecified cervical region; Z98.61 Coronary angioplasty status; Z88.2 Allergy status to sulfonamides; Z91.041 Radiographic dye allergy status; Z91.013 Allergy to seafood; Z88.8 Allergy status to other drugs, medicaments and biological substances; Z79.899 Other long term (current) drug therapy; Z90.49 Acquired absence of other specified parts of digestive tract; Z98.51 Tubal ligation status; Y92.89 Other specified places as the place of occurrence of the external cause; I25.2 Old myocardial infarction; Z87.440 Personal history of urinary (tract) infections; Z68.26 Body mass index [BMI] 26.0-26.9, adult; Z79.84 Long term (current) use of oral hypoglycemic drugs

== ENCOUNTER 2017-09-19 15:38 | Inpatient (IN) | payer MEDICARE ==
[~2017-09-19] VITALS: Ht 157.4 cm; Wt 68.7 kg
--- NOTE | ~2017-09-19 | EKG ---
[place], [place] ELECTROCARDIOGRAM REPORT NAME: CINDI ARCINIEGA UNIT #: [id number] ROOM: 424 DOCTOR: HUYEN PHILLIPS,CHUY BIRTHDATE: [birth year] DOS: 09/21/2017 TIME: 6:10 a.m. IMPRESSION: 1. Atrial fibrillation with rapid ventricular rate. 2. Low voltage complexes. 3. Nonspecific ST-T changes. 4. Baseline artifacts. CHUY MATSON MD CM:EKGRPT:ELECTROCARDIOGRAM REPORT [id number] CHUY MATSON MD
--- NOTE | ~2017-09-19 | CON ---
[place], [place] REPORT OF CONSULTATION [id number] UNIT #: [id number] ROOM: 410 DOCTOR: CY TREVINO MD BIRTHDATE: [birth year] DOS: 09/25/2017 RAPID RESPONSE CALL. At hours, I was called to the fourth floor to evaluate a lady who had a change in mental status. She was originally admitted to the hospital for atrial fibrillation with RVR and had been treated. On the day before, she became symptomatic with mental status change. She had had sinus rhythm on her phototypesetting equipment monitor, according to the nurse. The nurse went in to assess the patient this morning and noted that the patient was awake but nonverbal. When approached, the patient became agitated, but could not give any information. The nurse stated that she had seen her last at 4:30 in the morning and she had noted that there was a change in the cardiac rhythm. The patient was unable to give any information to me because she seemed to be unaware of her surroundings. Her eyes were open. She was nonverbal, staring into space, did not follow simple commands and not responding to any other questions. Her skin was warm and dry. She had some eye movements that were spontaneous and there appeared to be no gaze preference. There is positive facial movement, but no facial droop. She had increased muscle tones. Range of motion in the neck was within normal limits. There was no rigidity. There was slight increased muscle tone in the extremities. SKIN: Warm and dry. HEART: Irregularly irregular between 140-150 beats per minute. LUNGS: Clear to auscultation and percussion. ABDOMEN: Soft, nontender. Bowel sounds were present. No masses appreciated. Liver normal size. EXTREMITIES: Increased tone and at times the patient resisted examination by flexing her arms, but there was no extension to the lower extremities. There was no edema and pulses were 1+ bilaterally. SKIN: Extensive maculopapular rash but no vesicles. NEUROLOGIC: Nonverbal, increased muscle tones, resisted any attempt to evaluate for more subtle neurological signs. The nurse reported that the rash was new. The patient's ventilation was normal, pulse oximetry was normal. A 12-lead EKG was obtained, which showed atrial fibrillation with a rapid ventricular rate. Chest x-ray was ordered and the film is pending. It is unclear if this change in mental status was related to primary central nervous system problem. Her blood pressure was well maintained. I recommended a stat CT scan of the brain, a 12-lead EKG which has been seen, electrolytes, ionized calcium, magnesium, troponin and the patient should be transferred to the ICU. Coagulation studies pending. Urinalysis with reflex culture pending. IMPRESSION: Acute change in mental status, atrial fibrillation with rapid ventricular response, suspect neurological event, orders are written. The patient's condition is critical. [place], [place] REPORT OF CONSULTATION NAME: CINDI ARCINIEGA UNIT #: [id number] ROOM: 410 DOCTOR: CY TREVINO MD BIRTHDATE: [birth year] CY TREVINO MD CM:CONSTR:REPORT OF CONSULTATION 0343 09/30/17 0902 interface
--- NOTE | ~2017-09-19 | PR ---
[place], [place] PROGRESS NOTE NAME: CINDI ARCINIEGA [facility] #: [id number] UNIT #: [id number] ROOM: 424 DOCTOR: KERI CALERO MD BIRTHDATE: [birth year] DOS: 09/23/2017 SUBJECTIVE: The patient is sitting up in her bed, about to eat her breakfast, does not have any complaints, had a fairly good uneventful night. She is awake and alert and oriented this morning. OBJECTIVE: VITAL SIGNS: Graphic trend shows a pressure 142/60, pulse of 65, respirations 18, temperature 97.9. LUNGS: Diminished breath sounds. HEART: Regular. ABDOMEN: Obese, soft, nontender. EXTREMITIES: Without any edema. LABORATORY DATA: This morning shows a glucose of 180, BUN 75, creatinine 5.78, sodium 139, potassium 4.3, chloride 100, bicarbonate 30. Phosphorus 5.3, magnesium 2.5. Blood culture shows no bacterial growth. ASSESSMENT AND PLAN: 1. Acute renal failure from acute tubular necrosis, nephrotoxicity from medications. Her kidney functions are finally showing a downward trend. Hopefully, we can avoid dialysis. 2. Recent MRSA bacteremia, which is resolved. Blood cultures are negative. No new antibiotics started. 3. Paroxysmal atrial fibrillation, back in sinus rhythm and low dose Eliquis is added. 4. Cryptogenic organizing pneumonia. We will restart low dose glyburide. 5. Benign hypertension, controlled. KERI CALERO MD CM:PNTRANS [id number] KERI CALERO MD 09/23/17 1105 interface
--- NOTE | ~2017-09-19 | PR ---
[place], [place] PROGRESS NOTE NAME: [id number] UNIT #: [id number] ROOM: 424 DOCTOR: JAMIR PHILLIPSMARGUERITE Vazquez BIRTHDATE: [birth year] DOS: 09/21/2017 SUBJECTIVE: The patient was seen and examined. She is awake and alert. She is resting comfortably. She denies shortness of breath. I was called earlier this morning in regards to a concern about the patient's respiratory status. She received a dose of IV Lasix. Currently, she appears to be stable. She is a poor historian. She seems confused. I am not clear what her baseline mental status is. PHYSICAL EXAMINATION: VITAL SIGNS: Temperature 97.8, pulse 71, respiratory rate 18, blood pressure 144/54. HEENT: Shows no JVD. LUNGS: Diminished breath sounds. No wheeze. HEART: Normal S1, S2. No rub, thrill or gallop. ABDOMEN: Soft, nontender. There is no organomegaly. EXTREMITIES: Had 1+ edema. SKIN: Showed no rash. LABORATORY DATA: V/Q scan was performed, which was low probability for pulmonary embolism. CT scan without contrast showed multifocal ground glass airspace opacities throughout the lungs, concerning for pneumonia with small to moderate sized pleural effusions and small pericardial effusion. BUN was noted to be 52, creatinine of 5.7, sodium 137, potassium 4.0. Phosphorus 5.4, magnesium 2.2, albumin 2.8. Vancomycin random level was 39. ASSESSMENT AND PLAN: 1. Acute kidney injury, with recent creatinine levels near normal range, with now continued rise in creatinine, most consistent with acute tubular necrosis. This may be related to transient ischemia in the setting of a prolonged prerenal state. The patient had high vancomycin levels, which rarely can cause acute tubular necrosis in itself; however, this may have been more of a result of the patient's worsening renal function being the initial culprit. Nonetheless, the patient has continued decline in her renal function, her creatinine is rising. She reports she is making urine. She may require dialysis. There is no urgent indication, however, in the next few days, we will need to follow her status very closely. 2. Respiratory distress/hypoxia. The patient appears to be stable currently. CT scan noted to show pleural effusions as well as concerns for pneumonia. Diuretics can be used as felt needed. She will need high doses of at least 80 mg of Lasix intravenously. 3. Anemia. Transfuse as felt needed. 4. Recent bacteremia. Antibiotics as noted. Vancomycin remains in her system. [place], [place] PROGRESS NOTE NAME: CINDI ARCINIEGA UNIT #: [id number] ROOM: [facility] DOCTOR: JAMIR PHILLIPS,MARGUERITE Vazquez BIRTHDATE: [birth year] MARGUERITE BOWIE MD CM:PNTRANS 1614 16 MARGUERITE BOWIE MD 09/21/17 2018 interface
--- NOTE | ~2017-09-19 | CON ---
[place], [place] REPORT OF CONSULTATION NAME: CINDI ARCINIEGA [facility] #: [id number] UNIT #: [id number] ROOM: 424 DOCTOR: VANGIE BOWER MDDANIEL BIRTHDATE: [birth year] DOS: 09/21/2017 PULMONARY CONSULTATION, EVALUATION AND MANAGEMENT REQUESTED BY: Wendy Hobbs MD REASON FOR CONSULTATION: Current respiratory failure. HISTORY OF PRESENT ILLNESS: A 71-year-old white female known to me once during her last admission. She has been admitted in the beginning of 08/2017. She has been noted with positive blood culture for MRSA by the source of the infection could not be determined with the investigation which was done during the last hospitalization. The patient was seen by the Infectious Disease specialist. The CT scan at that time shows small area of infiltration in the right lower lobe that may be presumed the infection is a source of origin. The patient had a UYEN done for this patient that did rule out any evidence of agitation. The MRI of the spine for the patient was also done for this patient that did not show any evidence of osteomyelitis. She has not been noted any abscesses or other abnormalities with the previous workup during the last hospitalization. Upon recommendation of Infectious Disease specialist for 6 weeks of IV vancomycin, after completing at least 1 week of antibiotic in this hospital, she was transferred to [facility] where she has been receiving intravenous vancomycin and being managed by the Infectious disease specialist. Heart trough level. The patient has been monitored for the last trough level done for the patient on 09/17/2017 that was noted normal for this patient as 15.5. The patient was also being monitored with the BUN and creatinine for this patient. The last BUN and creatinine of this patient on 09/16/2017 was noted as BUN 14, creatinine was completely normal. She has been noted generalized weakness or fatigue at the nursing facility. The patient with change in mental status. She has an outpatient workup done for the assessment of current problem noted acute kidney injury for the patient with elevation of the trough level of the vancomycin 250. She was assessed in the Emergency Room for that problem for the acute kidney injury, abnormal levels of the vancomycin and being hospitalized. She has been noted with decreased responsiveness for this patient. She was also with symptoms of nausea this morning and some vomiting per nursing staff as the patient went to the bathroom. She has developed further change in mental status and then also requiring high amount of oxygen supplementation, current noted 100% oxygen supplementation with 100% nonrebreather mask. She has been noted comfortable. Denies any signs of respiratory distress. The family members of the patient has been present, several of them in the room along with the patient. She is unable to give me any history for this patient at this time. All the history has been essentially reviewed for the patient. My past documentation assessment during previous hospitalization as well as current documentation by the other physicians, nurses noted some from the family members. REVIEW OF SYSTEMS: Could not be completed because of the patient's current changes in mental status. PAST MEDICAL HISTORY: [place], [place] REPORT OF CONSULTATION NAME: CINDI ARCINIEGA UNIT #: [id number] ROOM: [facility] DOCTOR: DANIEL KRISHNAMURTHY MD BIRTHDATE: [birth year] 1. The patient was known with history of chronic obstructive pulmonary disease. 2. MRSA bacteremia. The patient noted in August 2017 with a small right lower lobe infiltration for the patient at that time, presumed pneumonia. 3. Hypercholesterolemia. 4. Anxiety disorder. 5. Essential hypertension. 6. Deep venous thrombosis of the left lower extremity. 7. Hyperlipidemia. PAST SURGICAL HISTORY: Cardiac catheterization with coronary artery stents insertion. SOCIAL HISTORY: The patient is , was living at home, but recently been treated at the [facility] for acute illnesses. She has 5 children. She denies any occupation related pulmonary exposure from the past. The tobacco use for the patient noted for a long period of time about half a pack of cigarettes per day, which was known previously, but I believe she is not smoking cigarettes at this time. FAMILY HISTORY: Essentially was noted unknown. MEDICATIONS: 1. Current administered medication were noted use of calcium acetate, Xopenex, Cardizem intravenously started for this patient for the atrial fibrillation with rapid ventricular response. 2. Intravenous therapeutic heparin for the patient for the atrial fibrillation management. 3. Some p.r.n. medications as well. DRUG ALLERGIES: THE PATIENT WAS NOTED . 1. SULFA DRUGS. 2. KEFLEX. 3. IODINE. 4. VICODIN. PHYSICAL EXAMINATION: GENERAL: This is a 71-year-old female who has been currently noted, resting comfortably in the bed, 100% oxygen supplementation nonrebreather mask with pulse ox 99% saturation. Height of 5 feet 2 inches, weight 151 pounds, BMI 27 recorded on admission. VITAL SIGNS: The temperature noted completely normal for the patient since admission in the hospital from 09/19/2017, till now. Respiratory rate was recorded between 18-21, heart rate of 126 with atrial fibrillation to 73. Blood pressure 141/77-110/40. Pulse oxygen saturation on 2.5 liter nasal cannula at midnight was 97%, currently on 100% nonrebreather mask is 99% saturation. HEENT: Examination for the patient was noted, dried oral mucosa. Head was atraumatic. CARDIOVASCULAR SYSTEM: S1, S2 audible. LUNGS: The patient was noted with [id number] decreased breath sounds. There were no crackles. [place], [place] REPORT OF CONSULTATION NAME: CINDI ARCINIEGA UNIT #: [id number] ROOM: [facility] DOCTOR[facility] VANGIE [facility] [birth year] ABDOMEN: Soft without any tenderness. Bowel sounds present. EXTREMITIES: Showed minimal edema for this patient on the upper and the lower extremities. VISIBLE SKIN: No lesions or rashes. CENTRAL NERVOUS SYSTEM: There were no focal deficits reported by the family members earlier. The patient moving all the extremities. LABORATORY DATA: CBC on 09/19/2017 for the patient done as an outpatient. Hemoglobin 10.2, hematocrit 32.4, WBC count and platelet count were normal. Eosinophils were noted as 9.6. The CMP for this patient that was done on 09/19/2017 for this patient shows glucose 127, BUN 36, creatinine 4.56. The vancomycin trough level is 52. The alkaline phosphatase of 139. CBC on 09/20/2017 for the patient's hemoglobin 9.1, hematocrit 28.7, WBC count normal, platelet count was normal. The BMP on 09/20/2017 for the patient repeated BUN 43, creatinine 5.14, glucose 120. C-reactive protein 9.19. Urine electrolytes for the patient noted as sodium of 32. The ESR was recorded at 70 yesterday. Urine sodium was 34. Arterial blood gas for the patient earlier this morning 05:40, pH of 7.29, pCO2 of 52.7, pO2 of 51.2. Troponin of the patient this morning were noted as normal. The renal function panel for this morning, glucose 220, BUN 52, creatinine 5.72. Phosphorus 5.4. Magnesium 2.2, albumin of 2.8. The PTT for the patient was noted as 27 this morning. The arterial blood gas that I ordered for the patient to be repeated again shows pH of this time was 7.32, pCO2 of 48.9, pO2 of 100 and 82%-100% oxygen supplementation nonrebreather mask. Review of the radiology data independent review for the patient of the chest x-ray and the CT scan was done. The chest x-ray of the patient on 08/27/2017 during last admission prior to the discharge. The patient noted a PICC line in place without any other acute abnormalities. The CT scan of the chest for the patient that was done without contrast for this patient this morning was personally reviewed, shows a small pericardial effusion. Evidence of small bilateral pleural fluids. Preferred base of the patient infiltration for the patient was noted mostly with some area of atelectasis in the lungs. Significant new infiltration of the patient which are noted mostly in the periphery of the lung was noted as compared to the last CT scan of the chest which was done on previous admission on 08/24/2017 all as a new finding. COPD changes were also present. IMPRESSION: 1. The patient who seemed to have developed acute respiratory failure result of appears like acute allergic drug reaction. The patient manifesting in the lungs with bilateral pulmonary infiltration, also developed acute kidney injury of the patient secondary to acute tubular necrosis for this patient or interstitial nephritis. Significant eosinophilia was observed for this patient on the CBC on this admission. 2. The patient with history of chronic obstructive pulmonary disease, does not have any acute exacerbation at the present time. Pleural fluid related to current acute change and the possible allergic drug reaction in the lungs for this patient. The only medication could be think of is vancomycin for the patient that may have resulted in current abnormality. 3. The patient with current acute atrial fibrillation with rapid ventricular response noted, which has been treated with Cardizem for the patient intravenously as well as a therapeutic IV heparin. There was no clinical [place], [place] REPORT OF CONSULTATION NAME: CINDI ARCINIEGA UNIT #: [id number] ROOM: 424 DOCTOR: DANIEL KRISHNAMURTHY MD BIRTHDATE: [birth year] suspicion of pulmonary embolism in this patient at the present time. 4. Past bacteremia, which has been noted on the patient has not been observed with a followup culture on the patient prior to discharge on last admission. Change in mental status, multifactorial secondary to the above. PLAN OF MANAGEMENT: The patient will be kept off the vancomycin at this time, which would not be given in future for this patient. Monitor respiratory status closely as the part of the workup because of the kidney involvement and the lung involvement. Workup for vasculitis will be done for the patient in the differential diagnosis. The appropriate lab work for the patient will be ordered accordingly. Continue the patient bronchodilators p.r.n. for any respiratory symptoms. Supportive therapy, plan of management and care. The patient has already been consulted and managed by the Infectious Disease specialist. I defer the antibiotics use for any reason for the patient per their consultation. The assessment and management was discussed with the primary care physician, Dr. Wendy Hobbs on the phone as well. The pleural fluid of the patient at this time will be monitored. The patient would not require thoracentesis at their noted small in origin. The patient with overall improvement in the pulmonary status. Close monitoring of the mental status will be done for this patient. Titrate the oxygen, maintain saturation 92% or greater since the saturation has been improving gradually. DANIEL VENCES MD CM:CONSTR:REPORT OF CONSULTATION 1205 09/22/17 0222 interface
--- NOTE | ~2017-09-19 | PR ---
[place], [place] PROGRESS NOTE NAME: CINDI ARCINIEGA UNIT #: [id number] ROOM: 424 DOCTOR: DANIEL KRISHNAMURTHY MD BIRTHDATE: [birth year] DOS: 09/24/2017 SUBJECTIVE: She has been reported intermittent symptoms of nausea and vomiting. The patient in the last 24 hours denies any abdominal pain, denies acute shortness of breath. Denies any cough or chest pain. OBJECTIVE: VITAL SIGNS: For the patient which has been recorded shows normal temperature, respiratory rate 18, heart rate 87, blood pressure 156/62. Pulse oxygen saturation on 4 liters 91% saturation recorded. HEENT: Examination shows no acute change. NECK: Supple. CARDIOVASCULAR: S1, S2 audible. LUNGS: No crackles or wheezing. ABDOMEN: Soft, nontender. LABORATORY DATA: Workup for the interstitial lung disease. The patient noted the IgE elevated at 166 with normal IgG subclasses, ANCA, aldolase, LIAT level and negative INGRID. BMP this morning, BUN 77, creatinine 4.95. CBC of this morning to predict WBC count 12.6, hemoglobin 9.1, hematocrit 26.4, platelet count 236,000. IMPRESSION: 1. The patient with acute allergic drug reaction involving the lung for acute respiratory failure. 2. Resolving infiltration of the lung as well. However, the patient was still requiring oxygen supplementation 4 liters nasal cannula to maintain normal oxygen saturation. 3. Improving acute kidney injury secondary to toxicities related to the vancomycin. 4. Nausea, vomiting, etiology unclear. PLAN OF MANAGEMENT: Continuation of the oxygen supplementation, maintain saturation 90% or greater. Continue medical management of the acute kidney injury. Per recommendation of Nephrology services. Supportive therapy, plan of management. Steroids at this time, still remain on hold. Since, the patient has been noted symptomatic and radiologic improvement in the current acute lung injury secondary to the vancomycin allergic drug reaction. [place], [place] PROGRESS NOTE NAME: CINDI ARCINIEGA UNIT #: [id number] ROOM: 424 DOCTOR: DANIEL KRISHNAMURTHY MD BIRTHDATE: [birth year] DANIEL VENCES MD CM:PNTRANS [id number] DANIEL BOWER MD 09/24/17 1358 interface
--- NOTE | ~2017-09-19 | PR ---
[place], [place] PROGRESS NOTE NAME: [facility]GA [id number] UNIT #: [id number] ROOM: 424 DOCTOR: CHUY MATSON MD BIRTHDATE: [birth year] DOS: 09/22/2017 REASON FOR VISIT: Atrial fibrillation. SUBJECTIVE: The patient is feeling better. Denies any chest pain or shortness of breath. No palpitation, dizziness. No edema. No orthopnea. RHYTHM STRIPS: The patient is in sinus rhythm. OBJECTIVE: VITAL SIGNS: Blood pressure 114/52, pulse 73, respiration is 18. GENERAL: Alert, comfortable, in no acute distress. HEAD AND NECK: Supple. No distended neck veins. No carotid bruit. CHEST: Symmetrical, nontender. LUNGS: Clear to auscultation bilaterally. HEART: Regular rhythm. No S3. Grade 1/62 murmur. No palpable thrills. ABDOMEN: Benign, nontender, bowel sounds normal. EXTREMITIES: Showed no edema. Distal pulses are palpable. SKIN: Warm and dry. No cyanosis. No clubbing. RECTAL: Deferred. NEUROLOGIC: The patient is alert, oriented. No focal neurologic deficit. MEDICATIONS AND ALLERGIES: Reviewed. IMPRESSION: 1. Atrial fibrillation with rapid ventricular rate, currently sinus rhythm. 2. History of paroxysmal atrial fibrillation. 3. Acute renal failure. 4. Hypertension. 5. History of coronary artery disease. 6. Chronic obstructive pulmonary disease. RECOMMENDATIONS: 1. Blood pressure, heart rate are stable. 2. I would discontinue heparin, resume her Eliquis. 3. No further cardiac testing. 4. Discussed with Dr. Wendy Hobbs about the cardiac recommendations. 5. She can be discharged home from a cardiac standpoint tomorrow. 4. There was no family at the bedside at the time of my examination. [place], [place] PROGRESS NOTE NAME: CINDI ARCINIEGA UNIT #: [id number] ROOM: 424 DOCTOR: CHUY MATSON MD BIRTHDATE: [birth year] CHUY MATSON MD CM:PNTRANS [id number] CHUY MATSON MD 09/22/17 1648 interface
--- NOTE | ~2017-09-19 | PR ---
[place], [place] PROGRESS NOTE NAME: CINDI ARCINIEGA UNIT #: [id number] ROOM: 424 DOCTOR: MARGUERITE BOWIE MD BIRTHDATE: [birth year] DOS: 09/22/2017 SUBJECTIVE: The patient was seen and examined. She is awake, alert and appears comfortable. She is on nasal cannula. She denies shortness of breath, nausea or vomiting. She states she is eating better today. She states she is hopeful she can be transferred back out of the hospital soon. She reports good urination. PHYSICAL EXAMINATION: VITAL SIGNS: Showed temperature 97.8, pulse 77, respiratory rate 18, blood pressure 114/52. HEENT AND NECK: Shows no JVD. LUNGS: Diminished breath sounds. No wheeze. HEART: Normal S1, S2. No rub, thrill or gallop. ABDOMEN: Soft, nontender. EXTREMITIES: Had 1+ edema. SKIN: Showed no overt rash. LABORATORY DATA: Sodium 135, potassium 4.5, CO2 of 30, BUN 64, creatinine of 6.0, glucose 308, phosphorus 4.2, calcium 8.2, magnesium 2.3, albumin is 2.6. IMPRESSION AND PLAN: 1. Acute kidney injury with recent creatinine levels near normal, now with acute kidney injury, most consistent with acute tubular necrosis. This may be related transient ischemia in the setting of a prolonged prerenal state. There has been some concern for vancomycin-induced tubular injury as well, although it is not clear if this is a result of her recent renal insult. The patient's creatinine is up a little bit today. Hopefully, this will stabilize. She appears to be nonoliguric. If her creatinine continues to rise, she will need dialysis. We are hopeful in the next 24-48 hours that there will be plateauing and dialysis can be avoided. 2. Respiratory distress/hypoxia. She is on nasal cannula and being followed by Pulmonary. Use diuretics as felt needed. 3. Anemia. Transfuse p.r.n. 4. Recent bacteremia. Antibiotics remain in her system with vancomycin as noted. [place], [place] PROGRESS NOTE NAME: CINDI ARCINIEGA UNIT #: [id number] ROOM: 424 DOCTOR: MARGUERITE BOWIE MD BIRTHDATE: [birth year] MARGUERITE BOWIE MD CM:PNNARA 42 MARGUERITE BOWIE MD 09/22/172142 interface
--- NOTE | ~2017-09-19 | PR ---
[place], [place] PROGRESS NOTE NAME[id number] UNIT #: [id number] ROOM: 410 DOCTOR: KERI CALERO MD BIRTHDATE: [birth year] DOS: SUBJECTIVE: The patient states that she rested well and did not have any problems during the night. Denies having any nausea, any emesis. Her rash is improving and she does not have pleuritis like yesterday morning. OBJECTIVE: VITAL SIGNS: Graphic trend shows a pressure of 138/52, pulse of 60, respirations 16, temperature 97.2. LUNGS: Diminished breath sounds, clear. HEART: Regular. ABDOMEN: Soft, nontender. EXTREMITIES: Without any edema. ASSESSMENT: 1. Acute ATN and acute renal failure from vancomycin causing nephrotoxicity. The patient's kidney functions are slowly improving. 2. Recent methicillin-resistant Staphylococcus aureus sepsis, which is resolved. Blood cultures have come back negative. 3. Paroxysmal atrial fibrillation, converted to sinus rhythm yesterday morning and since remained in sinus rhythm. 4. 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 5. Benign hypertension, controlled. 6. Generalized anxiety disorder, stable. The plan is to discharge her to home today, visiting nurses PT, OT has been consulted. KERI CALERO MD CM:PNTRANS [id number] KERI CALERO MD 09/26/17 1024 interface
--- NOTE | ~2017-09-19 | PR ---
[place], [place] PROGRESS NOTE NAME: CINDI ARCINIEGA [facility] #: [id number] UNIT #: [id number] ROOM: 424 DOCTOR: KERI CALERO MD BIRTHDATE: [birth year] DOS: 09/24/2017 SUBJECTIVE: The patient is doing fine without any complaints. Yesterday evening, she developed nausea and had a large emesis of bilious fluid. This morning, the patient says that she rested well. She fell asleep after getting all the medications which included Phenergan and Reglan. She just woke up. Her stomach feels quiet as per the patient. She does not have any abdominal pain. PHYSICAL EXAMINATION: VITAL SIGNS: Graph trend shows the pressure 154/68, pulse 62, respirations 18, temperature 98.9. LUNGS: Clear. HEART: Regular. ABDOMEN: Obese, soft, nontender. EXTREMITIES: Without any edema. LABORATORY DATA: Glucose 84, BUN 77, creatinine 4.95, GFR 9. Electrolytes were normal. CBC, 12.2 WBC count, hemoglobin 9.4, platelets 236. ASSESSMENT AND PLAN: 1. Acute renal failure from acute tubular necrosis versus vancomycin causing nephrotoxicity. Kidney functions are slowly improving. 2. Nausea, emesis, possible gastroparesis, one dose of Reglan, Phenergan, and Prilosec was added. The patient seems stable this morning. 3. Cryptogenic organizing pneumonia, possibly from the vancomycin allergy. The patient will need oxygen for home assessment. Discussed with respiratory. 4. Benign hypertension, controlled. 5. Paroxysmal atrial fibrillation, already on anticoagulants. KERI CALERO MD CM:PNTRANS [id number] KERI CALERO MD 09/24/17 1229 interface
--- NOTE | ~2017-09-19 | CON ---
[place], [place] REPORT OF CONSULTATION NAME: CINDI ARCINIEGA UNIT #: [id number] ROOM: 424 DOCTOR: CHUY MATSON MD BIRTHDATE: [birth year] DOS: 09/21/2017 REASON FOR CONSULTATION: Atrial fibrillation. CLINICAL HISTORY: The patient is a 71-year-old patient with history of CAD, hypertension, came to the Emergency Room for her abnormal blood work, with acute renal failure and subsequently admitted to the hospital and Cardiology was consulted for her atrial fibrillation. She has history of paroxysmal atrial fibrillation, hypertension, dyslipidemia, CAD with previous stents. She denies any chest pain, palpitation. No dizziness. No edema. No orthopnea. No PND. No fever or chills. No nausea, vomiting, diarrhea. No hematuria. No dysuria. REVIEW OF SYSTEMS: Review of the 8 systems negative except as mentioned above. PAST MEDICAL HISTORY: 1. CAD, status post stents. 2. Paroxysmal atrial fibrillation. 3. Hypertension. 4. Chronic pain. 5. Dyslipidemia. 6. Emphysema. 7. Anxiety. PAST SURGICAL HISTORY: Not applicable. ALLERGIES AND MEDICATIONS: Reviewed. SOCIAL HISTORY: The patient does smoke about half pack a day, does not use any alcohol, does not use illicit drugs. FAMILY HISTORY: Noncontributory. PHYSICAL EXAMINATION: VITAL SIGNS: Blood pressure 135/56, pulse 69, respirations 20. GENERAL: Alert, comfortable, in no acute distress. NECK: Supple. No distended neck veins. No carotid bruit. CHEST: Symmetrical, nontender. LUNGS: Few scattered rhonchi. HEART: Irregularly irregular. Grade 1/6 systolic murmur. ABDOMEN: Benign, nontender. Bowel sounds normal. EXTREMITIES: Showed no edema. Distal pulses are palpable. SKIN: Warm and dry. No cyanosis. No clubbing. RECTAL: Deferred. GENITOURINARY: Deferred. REVIEW OF THE DIAGNOSTIC TESTS: EKG, labs reviewed. EKG showed atrial fibrillation with rapid ventricular rate. IMPRESSION: 1. Atrial fibrillation with rapid ventricular rate. [place], [place] REPORT OF CONSULTATION NAME: CINDI ARCINIEGA UNIT #: [id number] ROOM: 424 DOCTOR: CHUY MATSON MD BIRTHDATE: [birth year] 2. Acute renal failure. 3. Coronary artery disease, status post PCI. 4. Hypertension. 5. History of deep venous thrombosis. 6. Chronic obstructive pulmonary disease. 7. Tobacco use. RECOMMENDATIONS: 1. Wean off IV Cardizem and start p.o. Cardizem. 2. Currently she was on heparin. I would recommend to resume her Eliquis and discontinue heparin. 3. Monitor heart rate and blood pressures as well as her renal function. 4. ____ statins due to known coronary artery disease. 5. No further cardiac testing at this time. 6. The patient is in sinus rhythm at the current time and the blood pressure and heart rates are stable. Thank you, Dr. Hobbs for asking us to evaluate this patient and we will follow the case along with you. CHUY MATSON MD CM:CONSTR:REPORT OF CONSULTATION 1100 09/23/17 0352 interface
--- NOTE | ~2017-09-19 | EKG ---
[place], [place] ELECTROCARDIOGRAM REPORT NAME: CINDI ARCINIEGA UNIT #: [id number] ROOM: [facility] DOCTOR: HUYEN PHILLIPS,CHUY BIRTHDATE: [birth year] DOS: 09/25/2017 TIME: 6:45 a.m. IMPRESSION: 1. Atrial fibrillation with rapid ventricular rate. 2. Low voltage complexes. 3. Poor R-wave progression. CHUY MATSON MD CM:EKGRPT:ELECTROCARDIOGRAM REPORT 1404 1426 CHUY MATSON MD
--- NOTE | ~2017-09-19 | PR ---
[place], [place] PROGRESS NOTE NAME: CINDI ARCINIEGA [facility] #: [id number] UNIT #: [id number] ROOM: 424 DOCTOR: VANGIE BOWER MD,DANIEL BIRTHDATE: [birth year] DOS: 09/22/2017 SUBJECTIVE: The patient was seen and examined on 09/22/2017. She has been noted with significant reduction of the oxygen requirement. The patient had improvement in the mental status this morning, noted fully awake and alert. She has been monitored by the Nephrology services as well. She has been continued on anticoagulation. She has not noted any symptoms of chest pain at the present time. The patient does not have any sputum expectoration, but noted with some cough. OBJECTIVE: VITAL SIGNS: Normal temperature, respiratory rate 20, heart rate 83, blood pressure 150/65-147/54. The pulse oxygen saturation with the patient on 4-liter nasal cannula is 96% saturation. HEENT: Showed no acute change. NECK: Supple. CARDIOVASCULAR: S1, S2 audible. LUNGS: The patient was noted without any wheeze or crackles at the present time. Breaths are noted mild to moderately decreased bilaterally. ABDOMEN: Soft, nontender. LABORATORY DATA: Renal function panel today, BUN 63, creatinine 6.03, glucose 308. Sodium 135. PTT was 49, which is therapeutic. IMPRESSION: 1. The patient who has been currently noted with acute kidney injury in the patient nonoliguric, secondary to acute tubular necrosis and possibility of interstitial nephritis as well. 2. Allergic drug reaction, the patient with current pulmonary infiltration versus cryptogenic organizing pneumonia finding, the patient was considered with the current CT appearance of the chest. 3. Resolving acute respiratory failure secondary to the above. 4. Atrial fibrillation, which was noted in current controlled range. PLAN OF MANAGEMENT: Continuation of the patient's bronchodilator with oxygen supplementation at this time. Steroid therapy at this time will be placed on hold for this patient and will be started in case of worsening of the respiratory status. It will be appropriate to consider the fibrobronchoscopy with BAL specimen on the patient to further determine the current acute abnormalities. Supportive plan of management. In case of deterioration of respiratory status, I will consider addition of the corticosteroid treatment for this patient. In the meantime, continue the current medical management. Avoid use of the vancomycin now and in future as well. [place], [place] PROGRESS NOTE NAME: CINDI ARCINIEGA UNIT #: [id number] ROOM: 424 DOCTOR: DANIEL KRISHNAMURTHY MD BIRTHDATE: [birth year] DANIEL VENCES MD CM:PNTRANS [phone] DANIEL BOWER MD 09/23/17318 interface
--- NOTE | ~2017-09-19 | PR ---
[place], [place] PROGRESS NOTE [facility]: [id number] UNIT #: [id number] ROOM: 424 DOCTOR: CHUY MATSON MD BIRTHDATE: [birth year] DOS: 09/22/2017 REASON FOR VISIT: Atrial fibrillation and hypertension. SUBJECTIVE: The patient is feeling better. Denies any chest pain or shortness of breath. No palpitations, no dizziness, no edema, no fever and chills, no cough. REVIEW OF SYSTEMS: Review of the 8 systems negative except as mentioned above. RHYTHM STRIPS: Patient is in sinus rhythm. PHYSICAL EXAMINATION: VITAL SIGNS: Reviewed. GENEREL: Patient is alert, comfortable, in no acute distress. NECK: Supple. No distended neck veins. No carotid bruit. CHEST: Symmetrical, nontender. LUNGS: Diffuse scattered rhonchi. HEART: Regular rhythm, no S3, grade 1/6 systolic murmur. ABDOMEN: Benign, nontender. Bowel sounds normal. EXTREMITIES: Showed no edema. Distal pulses are palpable. SKIN: Warm and dry. No cyanosis, no clubbing. NEUROLOGIC: Patient is alert, oriented. No focal neurologic deficit. RECTAL: Deferred. Medications and labs reviewed. IMPRESSION: 1. Atrial fibrillation with rapid ventricular rate, currently sinus rhythm. 2. Hypertension, stable. 3. History of coronary artery disease. 4. Chronic obstructive pulmonary disease. 5. Acute renal failure, improved. RECOMMENDATIONS: 1. Continue current medications including her Eliquis. 2. Patient can be discharged from the cardiac standpoint. 3. Cardiology will see as needed. [place], [place] PROGRESS NOTE NAME: [facility]: [id number] UNIT #: [id number] ROOM: 424 DOCTOR: CHUY MATSON MD BIRTHDATE: [birth year] CHUY MATSON MD CM:PNTRANS [phone] CHUY MATSON MD 09/24/174 interface
--- NOTE | ~2017-09-19 | WRIGHTHP ---
[place], [place] PATIENT HISTORY AND PHYSICAL EXAM NAME: CINDI ARCINIEGA [facility] #: [id number] UNIT #: [id number] ROOM: 424 DOCTOR: KERI CALERO MD BIRTHDATE: [birth year] DOS: 09/20/2017 HISTORY OF PRESENT ILLNESS: This patient is 71 years old. The patient is very well known to us. The patient was admitted to the hospital last month with MRSA sepsis. The source of infection was unknown. The patient was discharged on IV vancomycin for 6 weeks. She has received a total of about 5 weeks of antibiotics, which included a week in the hospital. The patient's vancomycin levels were being managed by Infectious Disease specialist. We did get some blood work yesterday, noted that the patient's trough was extremely high at 50 and the patient had gone into acute renal failure. So, the patient was transferred out to the ER and was admitted. The patient does not have any complaints this morning. She is making fair amount of urine. Denies having any abdominal pain, nausea, emesis, any chest pains or palpitations. PAST MEDICAL HISTORY: Significant for: 1. Chronic pain syndrome. 2. MRSA bacteremia, unknown source of infection including a negative UYEN. 3. Benign hypertension. 4. Coronary artery disease with history of stent placement. 5. Centrilobular emphysema with continued nicotine abuse. 6. Mixed hyperlipidemia. 7. Generalized anxiety disorder. DISCHARGE MEDICATIONS: She is on currently are again vancomycin, DuoNeb, Eliquis 5 mg daily, atorvastatin 20 daily, diltiazem 240 daily, Lexapro 10 daily, glipizide 10 daily, lisinopril 10 daily, lorazepam 1 mg t.i.d. p.r.n., oxycodone 20 q. 12. SOCIAL HISTORY: Smoker of about half pack of cigarettes. Denies using any alcohol. PHYSICAL EXAMINATION: GENERAL: The patient is awake and alert and oriented. VITAL SIGNS: Graphic trend shows that she is afebrile. Pressure is 122/48, pulse of 65, respirations 18, temperature 98.3. LUNGS: Diminished breath sounds. No wheezes, rales or rhonchi heard. HEART: Regular. ABDOMEN: Obese, soft, nontender. EXTREMITIES: Without any edema. LABS AT THE TIME OF ADMISSION: WBC count is 9.3, hemoglobin 10.2, hematocrit 32.4, platelets 180. Comprehensive, glucose 127, BUN 36, creatinine 4.56, GFR 10, calcium 7.7, potassium 3.7; 52.1 vancomycin trough. ASSESSMENT AND PLAN: 1. Acute renal failure, is most likely medication induced. Avoid nephrotoxic medications. The lisinopril has been discontinued and also the vancomycin. 2. Possible the patient has acute tubular necrosis from hypotension, the Cardizem also is going to be discontinued and let the blood pressures normalize, I will place her on IV fluids. Renal perfusion scan, renal ultrasound, urine [place], [place] PATIENT HISTORY AND PHYSICAL EXAM NAME: CINDI ARCINIEGA [facility] #: [id number] UNIT #: [id number] ROOM: 424 DOCTOR: KERI CALERO MD BIRTHDATE: [birth year] electrolytes, urinalysis and a consultation with Nephrology has been obtained. 3. Coronary artery disease and history of DVT, on a low dose Eliquis, which will be continued. 4. History of bacteremia. Repeat blood cultures will be ordered for right now. We will hold off on any antibiotics since she has received 5 weeks of antibiotics. KERI CALERO MD CM:HISPHYS:PATIENT HISTORY AND PHYSICAL EXAMINATION [id number] KERI CALERO MD 09/20/17 1319 interface
--- NOTE | ~2017-09-19 | PR ---
[place], [place] PROGRESS NOTE [id number] UNIT #: [id number] ROOM: 410 DOCTOR: VANGIE BOWER MD,DANIEL BIRTHDATE: [birth year] DOS: 09/26/2017 SUBJECTIVE: She has been noted completely normal mental status, this morning has not reported any ongoing acute complaints and was considered for possible potential discharge today by the primary care physician. OBJECTIVE: VITAL SIGNS: Normal temperature, respiratory rate 16, heart rate 66, blood pressure 138/52, pulse oxygen saturation on room air 96% saturation. HEENT: Examination shows no new change. NECK: Supple. CARDIOVASCULAR: S1, S2 audible. LUNGS: Clear. ABDOMEN: Soft, nontender. LABORATORY DATA: BMP today: BUN 72, creatinine 4.43. Vancomycin trough level noted 15. IMPRESSION: 1. Bilateral pleural fluid. 2. Acute injury for the patient. 3. Resolving acute respiratory failure as bilateral pulmonary infiltration secondary to allergic drug reaction causing infiltration in the lungs. PLAN OF TREATMENT: The patient has been considered for home discharge that would be appropriate at this time. Outpatient assessment continuing by the Nephrology services. No further pulmonary assessment at this time, probably is needed. If the patient does have any recurrence of the respiratory symptoms gradually. She continues to make an appointment in the office for assessment of that. DANIEL VENCES MD CM:PNTRANS [phone] DANIEL BOWER MD 09/26/17 1552 interface
--- NOTE | ~2017-09-19 | PR ---
[place], [place] PROGRESS NOTE NAME: CINDI ARCINIEGA UNIT #: [id number] ROOM: 424 DOCTOR: KERI CALERO MD BIRTHDATE: [birth year] DOS: SUBJECTIVE: The patient states that she feels better this morning. Nursing staff do notice that she does get periodically confused. Morning, she is sitting up in a chair in no respiratory distress with improved oxygen saturation. She was taken off the Ventimask. OBJECTIVE: VITAL SIGNS: Graphic trend shows a pressure 147/54, pulse of 81, respirations 20, temperature 97.8. LUNGS: Diminished breath sounds. No wheezes, rales or rhonchi heard this morning. HEART: Regular. ABDOMEN: Obese, soft, nontender. EXTREMITIES: Without any edema. CT of the chest shows ground glass opacities with possibility cryptogenic organizing pneumonia, possibly even allergic reaction to the vancomycin with moderate size pleural effusions. VQ scan was negative for PE. Renal function this morning. LABORATORY DATA: Glucose 308, BUN 64, creatinine 6.03, sodium 135, potassium 4.5, chloride 98, bicarbonate 30, magnesium 2.3, phosphorus 4.2. ASSESSMENT AND PLAN: 1. Acute renal failure, possibly from combination of nephrotoxicity and from vancomycin and hypotension with the result in the ATN. The patient's kidney functions continue to show upward trend, but she is still making good amount of urine. Renal following. 2. Atrial fibrillation, new onset as stated, which converted to sinus rhythm. We will discontinue IV heparin protocol. She is on Cardizem right now and restart the Eliquis. Discussed with ____. 3. 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 Discussed with Dr. Rogel. 4. She is on breathing treatments and oxygen supplementation. 5. Type 2 diabetes mellitus, insulin-dependent. Blood sugars slightly on the high side, possibly from the steroids that she received yesterday. She is on coverage scale, continue on the glipizide. [place], [place] PROGRESS NOTE NAME: CINDI ARCINIEGA UNIT #: [id number] ROOM: 424 DOCTOR: KERI CALERO MD BIRTHDATE: [birth year] KERI CALERO MD CM:PNNARA [phone] KERI CALERO MD 09/22/17 1146 interface
--- NOTE | ~2017-09-19 | PR ---
[place], [place] PROGRESS NOTE NAME: CINDI ARCINIEGA [facility] #: [id number] UNIT #: [id number] ROOM: [facility] DOCTOR: KERI CALERO MD BIRTHDATE: [birth year] DOS: 09/25/2017 SUBJECTIVE: The patient is seen in the ICU. The patient was awake and alert and oriented, able to communicate very well. She said that she has a rash all over her body and itching all over her. She as per the nursing staff was not talking this morning and was not responding very well to them, had several episodes of rapid atrial fibrillation during the night and rapid response of a CT brain attack was called and the patient underwent a CT scan of the brain, which was negative and transferred to the ICU again. By the time she arrived in the ICU, she was already in sinus rhythm and responding very well. OBJECTIVE: VITAL SIGNS: Graphic trend shows a pressure of 138/76, pulse of 77, respirations 20, temperature 97.7. LUNGS: Diminished breath sounds. HEART: Regular. ABDOMEN: Obese, soft, nontender. EXTREMITIES: Without any edema. Elevated white cell count of 15.3, hemoglobin 10.7, hematocrit 33.8. Troponin 0.016. BMP: Glucose 150, BUN 67, creatinine 4.28. Electrolytes were normal. ASSESSMENT AND PLAN: 1. The patient with vancomycin related nephrotoxicity and acute renal failure, with an ATN, is doing well. Improvement in renal function noted. 2. Paroxysmal atrial fibrillation, already on anticoagulants and in sinus rhythm now. Discussed with the patient's in detail. It is possible that she received a medication which made her extremely somnolent and was the reason for her not to respond during the night, but I do not believe she had a cerebrovascular accident. 3. Adult failure to thrive, to go home tomorrow with PT, OT. 4. Benign hypertension, controlled. 5. Recent methicillin-resistant Staphylococcus aureus sepsis, which has resolved. 6. Cryptogenic organizing pneumonia with inflammatory workup so far coming back negative except for a slight IgE elevation of 166. Dr. Rogel is following. If stable from Dr. Rogel's this point, the plan is to discharge her to home in the morning. 7. Rash, which appears to be drug rash, most likely a red man syndrome from the vancomycin. The patient will be ordered Solu-Medrol for that. 8. Type 2 diabetes mellitus, non-insulin dependent, on coverage. Blood sugars are not too bad, 154 during the night. This morning's is not available yet. [place], [place] PROGRESS NOTE NAME: CINDI ARCINIEGA UNIT #: [id number] ROOM: [facility] DOCTOR: KERI CALERO MD BIRTHDATE: [birth year] KERI CALERO MD CM:PNTRANS [phone] KERI CALERO MD 09/25/17 1211 interface
--- NOTE | ~2017-09-19 | EKG ---
[place], [place] ELECTROCARDIOGRAM REPORT NAME: CINDI ARCINIEGA UNIT #: [id number] ROOM: 424 DOCTOR: HUYEN PHILLIPS,CHUY BIRTHDATE: [birth year] DOS: 09/21/2017 TIME: 7:24 a.m. IMPRESSION: 1. Atrial fibrillation with rapid ventricular rate. 2. Low voltage complexes. 3. Nonspecific ST-T changes; rate related. 4. Baseline artifacts. CHUY MATSON MD CM:EKGRPT:ELECTROCARDIOGRAM REPORT [id number] CHUY MATSON MD
--- NOTE | ~2017-09-19 | DS ---
[place], [place] DISCHARGE SUMMARY NAME: CINDI ARCINIEGA [facility] #: [id number] UNIT #: [id number] ROOM: 410 DOCTOR: KERI CALERO MD BIRTHDATE: [birth year] DOS: 09/26/2017 DISCHARGE DIAGNOSES: 1. Acute renal failure from acute tubular necrosis and nephrotoxicity from vancomycin. 2. Paroxysmal atrial fibrillation. 3. Long-term use of anticoagulants. 4. Recent methicillin-resistant Staphylococcus aureus sepsis, which is resolved. 5. Benign hypertension. 6. Generalized anxiety disorder. 7. Chronic pain. 8. History of a trimalleolar fracture repair with recent removal of hardware. 9. Mixed hyperlipidemia. 10. 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 11. Coronary artery disease with stent placement. HOSPITAL COURSE: This patient is very well known to us. She is 71 years old. She was receiving IV antibiotics ordered by Infectious Disease at [facility]. She had received about 5 days of antibiotics, had routine vancomycin and kidney functions ordered and it had shown sudden elevation with evidence of acute renal failure. The patient was transferred to the ER and was admitted. After admission, the patient was placed on slow IV hydration and a consultation with renal was obtained. Renal ultrasound was obtained, which was unremarkable. There was no obstructive uropathy noted. The vancomycin was discontinued. The patient also had shortness of breath and Dr. Rogel was consulted. She was found to be in acute hypoxic respiratory failure. CT of the chest showed cryptogenic organizing pneumonia with moderate pleural effusion and a VQ scan which was negative. The patient has AFib in the past, has been on Eliquis for history of a DVT. This was continued. She did develop frequent episodes of rapid atrial fibrillation with rapid ventricular response. For the last 24 hours, she remained in sinus rhythm. Dr. Bearden did see the patient in consultation. The patient did complain of headaches and some difficulty with speech pattern, so a CT of the head was done, which showed small vessel disease of the brain, but no acute strokes were seen. The patient has had physical therapy consultation and has slowly improved. The renal functions have improved slowly and IV fluids have since been discontinued. Nephrotoxic meds have been discontinued and the chest x-ray shows continued improvement. She also has developed red man syndrome from vancomycin for which a slow IV steroids and p.o. prednisone has also been given. This morning, the patient's rash is much improved and she is not having any complaints of pruritus. Kidney functions have shown a slow stabilization and this morning, the creatinine is 4.95 with a GFR of 9 with a BUN of 77, this may trend down further. Inflammatory workup for cryptogenic organizing pneumonia has come back negative. PT/OT and Social service have been consulted and the patient is ready to be discharged to home. [place], [place] DISCHARGE SUMMARY [facility]: [id number] UNIT #: [id number] ROOM: [facility] DOCTOR: KERI CALERO MD BIRTHDATE: [birth year] DISCHARGE MEDICATIONS: Labetalol 100 mg twice a day, omeprazole 20 daily, topical gel for local application twice a day, prednisone tapering dose, Lipitor 20 daily, Eliquis 5 mg daily, glipizide 10 b.i.d., oxycodone 10 b.i.d., breathing treatments with DuoNeb t.i.d., diltiazem 240 daily, lorazepam 1 mg q. 8. The meds that were discontinued were lisinopril, Lexapro, and Florastor. The admission labs showed a BUN of 36, creatinine 4.56 with a GFR of 10 and it peaked at BUN of 64, creatinine is 6.03 with a GFR of 7 and it is slowly trending down to the BUN of 72, creatinine of 4.43 on 09/26. KERI CALERO MD CM:PALMIRA 0 KERI CALERO MD 09/26/1740 interface
[~2017-09-19 15:38] MED LIST changes: +GLIPIZIDE10 M2 PO; +LORAZEPAM1 MG PO; +PERCOCET 5-3251 EACH PO
[2017-09-19 16:01] VITALS: BP 136/52
--- NOTE | 2017-09-19 16:33 | NUR ---
Time: A 71 FEMALE year old MED SURG PATIENT admitted to under services of KERI PALOMINO MD. Pt. arrived via bed from ER. Chief complaint: ELEVATED VANC LEVEL . EVELYN BERKOWITZ
[2017-09-19 16:45] VITALS: BP 138/61
[2017-09-19 20:00] VITALS: BP 134/57
--- NOTE | 2017-09-19 21:02 | NUR ---
MEDICATED WITH OXYCONTINE PER STRAIGHT ORDER. PT. COMPLAINS OF BILATERAL NECK PAIN RATED A 9/10.
[2017-09-20] VITALS: BP 113/59
--- NOTE | 2017-09-20 | NUR ---
RESTING IN BED WITH EYES CLOSED; OXYCONTIN GIVEN EARLIER APPARENTLY EFFECTIVE.
[2017-09-20 07:15] LABS: BASO # 0.1 10*3/uL (0.0-0.1); BASO % 0.6 % (0.0-1.0); EOS # 0.8 10*3/uL (0.0-0.4); EOS % 9.1 % (1.0-4.0); HEMATOCRIT 28.7 % (37.0-47.0); HEMOGLOBIN 9.1 g/dl (12.0-16.0); LYMPH # 1.2 10*3/uL (1.3-4.4); LYMPH % 13.7 % (27.0-41.0); MEAN CELL VOLUME 91.7 fl (81.0-99.0); MEAN CORPUSCULAR HGB 29.1 pg (27.0-31.0); MEAN CORPUSCULAR HGB CONC 31.7 g/dl (33.0-37.0); MONO # 0.7 10*3/uL (0.1-1.0); NEUT # 5.8 10*3/uL (2.3-7.9); NEUT % 68.4 % (47.0-73.0); PLATELET COUNT AUTOMATED 159 10*3/uL (130-400); RED BLOOD COUNT 3.13 10*6/uL (4.10-5.10); RED CELL DISTRI WIDTH 14.7 % (0-14.5); WHITE BLOOD COUNT 8.5 10*3/uL (4.8-10.8)
[2017-09-20 07:43] LABS: CREATININE 5.14 mg/dL (0.55-1.02); POTASSIUM 3.9 mmol/L (3.5-5.1)
[2017-09-20 08:00] VITALS: BP 122/48
[2017-09-20 08:10] LABS: BILIRUBIN NEGATIVE (NEGATIVE); BLOOD TRACE-LYSED (NEGATIVE); CLARITY CLOUDY (CLEAR); COLOR YELLOW (YELLOW); GLUCOSE NEGATIVE (NEGATIVE); KETONE NEGATIVE (NEGATIVE); LEUKO ESTERASE 1+ (NEGATIVE); NITRITE NEGATIVE (NEGATIVE); UROBILINOGEN 0.2 E.U./dl (0.2-1.0)
--- NOTE | 2017-09-20 08:30 | NUR ---
SADDLE LINING STITCHER VS. PT CAME FROM [facility] AND PLANS TO RETURN UPON DC.
[2017-09-20 08:31] LABS: BACTERIA 1+; EPITHELIAL CELLS TNTC; WBC 21-30 wbc/hpf (0-5)
[2017-09-20 12:00] VITALS: BP 105/43
--- NOTE | 2017-09-20 13:42 | NUR ---
CAN RETURN TO [facility] WITH UPDATE UPON DC IF BED AVAILABLE.
[2017-09-20 16:00] VITALS: BP 122/54
[2017-09-20 20:00] VITALS: BP 110/40; BP 114/40
--- NOTE | 2017-09-20 20:00 | NUR ---
AMBULATED TO BATHROOM AFTER ENCOURAGING HER TO VOID. 1/2 NS INFUSING AT 60CC/HR VIA PICC LINE IN RIGHT ARM. PULSE OX 93% ON 3L NASAL CANNULA. BP 110/40. VERY DROWSY, HARD TO KEEP EYES OPEN.
[2017-09-20] MEDS ORDERED: CARDIZEM LA240 MG PO (21:25)
[2017-09-20] MEDS ORDERED: FLORASTOR250 MG PO (21:30)
[2017-09-20] MEDS ORDERED: ATIVAN1 MG PO (21:32)
[2017-09-21] VITALS: BP 146/48
--- NOTE | 2017-09-21 05:15 | NUR ---
BATHROOM LIGHT GOING OFF. WALKED INTO ROOM AND KNEELED DOWN AT TOILET. HAD A LARGE EMESIS IN TOILET. SHORT OF BREATH. LIPS DUSKY. PULSE OX 70% ON 3L NASAL CANNULA. O2 INCREASED TO 4L AND PULSE OX NOT COMING UP. PLACED ON VENTURI MASK 6L AND PULSE OX 80%. PLACED ON 100% NON-REBREATHER MASK. 0540- ABG'S OBTAINED FROM LEFT RADIAL AND SENT TO LAB ON ICE. RESPIRATIONS LABORED AT 30 PER MINUTE. WHEEZING HEARD IN LEFT UPPER LOBE.
[2017-09-21 05:46] LABS: ABG BASE EXCESS -1.6 mmol/L (-2.0-2.0); ABG HCO3 24.9 mmol/l (22-26); ARTERIAL BLOOD GAS PCO2 52.7 mmHg (35-45); ARTERIAL BLOOD GAS PH 7.294 (7.35-7.45); ARTERIAL BLOOD GAS PO2 51.2 mmHg (80-90)
--- NOTE | 2017-09-21 05:50 | NUR ---
DR. CALERO NOTIFIED OF PATIENT'S CONDITION. NEW ORDERS RECEIBED FOR CT SCAN CHEST AND STAT SOLUMEDROL.
--- NOTE | 2017-09-21 06:11 | NUR ---
HEART RATE 150 A-FIB. STAT EKG ORDERED
[2017-09-21 06:36] LABS: ALBUMIN 2.8 gm/dl (3.1-4.5); CREATININE 5.72 mg/dL (0.55-1.02); PHOSPHOROUS 5.4 mg/dL (2.5-4.9)
[2017-09-21 06:44] LABS: VANCOMYCIN RANDOM 38.7 ug/mL
--- NOTE | 2017-09-21 06:54 | NUR ---
DR. BENDER'S ANSWERING SERVICE NOTIFIED OF CONSULT FOR A-FIB W/ RVR
[2017-09-21 08:00] VITALS: BP 141/77
--- NOTE | 2017-09-21 08:00 | NUR ---
CARDIZEM AND HEPARIN STARTED PER ORDERS VIA PICC RT ARM. HR 140'S. O2 INTACT VIA 100% NONREBREATHER. RESP EASY AND REGULAR. SPO2 94%. FAMILY AT BEDSIDE, UPDATED ON PT'S CURRENT CONDITION. CALL LIGHT WITHIN REACH. WILL MONITOR.
--- NOTE | 2017-09-21 08:52 | NUR ---
MESSAGE LEFT WITH DR. VANGIE WHITMAN RE:CONSULT.
--- NOTE | 2017-09-21 08:56 | NUR ---
NOTIFIED DR. LAMAR'S ANSWERING SERVICE OF CONSULT.
--- NOTE | 2017-09-21 10:45 | NUR ---
ABG RESULTS OBTAINED. PT PLACE ON 50% VENTI MASK. RESP EASY AND REGULAR. NO DISTRESS NOTED AT THIS TIME. CALL LIGHT IN REACH. WILL MONITOR.
[2017-09-21 10:54] LABS: ABG BASE EXCESS -0.9 mmol/L (-2.0-2.0); ABG HCO3 24.8 mmol/l (22-26); ABG O2 SATURATION 99.2 % (95-97); ARTERIAL BLOOD GAS PCO2 48.9 mmHg (35-45); ARTERIAL BLOOD GAS PH 7.325 (7.35-7.45)
[2017-09-21 12:00] VITALS: BP 133/56
[2017-09-21 16:00] VITALS: BP 144/54
[2017-09-21 20:00] VITALS: BP 151/54
[2017-09-22] VITALS: BP 114/52
[2017-09-22 04:04] LABS: ALBUMIN 2.6 gm/dl (3.1-4.5); CREATININE 6.03 mg/dL (0.55-1.02); PHOSPHOROUS 4.2 mg/dL (2.5-4.9); POTASSIUM 4.5 mmol/L (3.5-5.1)
[2017-09-22 07:07] LABS: RHEUMATOID ARTHRITIS FACTOR <10.0 IU/mL (0.0-13.9)
[2017-09-22 08:00] VITALS: BP 147/54
--- NOTE | 2017-09-22 08:06 | NUR ---
IN TO SEE PT AT THIS TIME, PT AWAKE AND ALERT, SPEECH IS SOMEWHAT DELAYED, BUT CLEAR. PT REMAINS ON 40% VENTURI MASK AT THIS TIME, O2 SAT 96%, PT ASKING IF SHE CAN REMOVE MASK TO EAT, PLACED PT ON NASAL CANNULA ON 4L, PT O2 SAT REMAINS AT 97-98% WHILE TALKING, NO DISTRESS NOTED. FINE PB RALES NOTED L>R, PT DENIES COUGH. HEPARIN DRIP INFUSING PER ORDER, RUNNING AT 18U/KG-12.4 ML/HR. PT STATES SOME BACK PAIN, STATES BACK FEELS STIFF. CALL LIGHT WITHIN REACH.
[2017-09-22 08:09] LABS: IMMUNOGLOBULIN IgE 002170 166 IU/mL (0-100)
--- NOTE | 2017-09-22 08:18 | NUR ---
DR CALERO HERE AT THIS TIME, UPDATED ON PT'S STATUS, TITRATED PT OFF VENTURI MASK ONTO 4L NC, 02 SAT 97%, PT AWAKE AND ALERT, BUT SPEECH SLOW, PB RALES NOTED, ALSO NOTIFIED THAT PT COMPLAINS OF BLEEDING WHEN HAVING BM, STATES FROM CHRONIC HEMORRHOIDS. UPDATED THAT PT IS NSR ON SHARED SERVICES REPRESENTATIVE, SR STATES TO D/C HEPARIN PROTOCOL.
--- NOTE | 2017-09-22 08:45 | NUR ---
DR CALERO NOTIFIED OF PT'S MENTATION, PT AWAKE AND ALERT, BUT INAPPORPIATE AT TIMES, SPEECH DELAYED. STATES SHE WILL ORDER CT OF HEAD.
--- NOTE | 2017-09-22 08:50 | NUR ---
HEPARIN DRIP D/C PER ORDER, PTT CANCELLED AT THIS TIME.
--- NOTE | 2017-09-22 10:51 | NUR ---
DR GUALLPA NOTIFIED OF NEW CONSULT. NO NEW ORDERS AT THIS TIME.
--- NOTE | 2017-09-22 11:12 | NUR ---
PT DOWN FOR CT OF HEAD AT THIS TIME.
--- NOTE | 2017-09-22 11:45 | NUR ---
PT BACK FROM CT AT THIS TIME.
[2017-09-22 12:00] VITALS: BP 155/65
--- NOTE | 2017-09-22 12:09 | NUR ---
MEDICATED WITH SCHEDULED OXYCONTIN FOR COMPLAINTS OF CHRONIC NECK PAIN, RATES PAIN 6/10. WILL MONITOR FOR EFFECTIVENESS.
--- NOTE | 2017-09-22 13:00 | NUR ---
PT RESTING IN BED, NO DISTRESS NOTED. OXYCONTIN EFFECTIVE FOR NECK PAIN. CALL LIGHT WITHIN REACH.
[2017-09-22 16:00] VITALS: BP 142/66
[2017-09-22 20:00] VITALS: BP 149/55
--- NOTE | 2017-09-22 20:32 | NUR ---
PT IN BED, AWAKE. LIGHTS ON WITH TV GOING. PT CURRENTLY SATING AT 91% ON 4L. ASKED PT TAKE A FEW DEEP BREATHS, O2 WENT UP TO 93%. INCREASED O2 TO 5L VIA NC. PT SATING AT 95%. PT VOICES NO COMPLAINTS AT THIS TIME. NO EDEMA NOTED. LUNGS ARE DIMINSHED WITH FINE RALES NOTED IN BILAT BASES. PICC LINE FLUSHED. PT TOLERATED WELL. WILL CONTINUE TO MONITOR.
[2017-09-23] VITALS: BP 142/60
[2017-09-23 06:05] LABS: ALBUMIN 2.8 gm/dl (3.1-4.5); CREATININE 5.78 mg/dL (0.55-1.02); PHOSPHOROUS 5.3 mg/dL (2.5-4.9); POTASSIUM 4.3 mmol/L (3.5-5.1)
[2017-09-23 08:00] VITALS: BP 140/50
[2017-09-23 12:00] VITALS: BP 180/62
--- NOTE | 2017-09-23 13:35 | NUR ---
Spoke to patient and at bedside. stated if patient is finished with IV ATB he will not have her return to [facility], he will take her home. Patient is not homebound, therefore doesn't qualify for home health nursing.
--- NOTE | 2017-09-23 14:48 | NUR ---
PHYSICAL THERAPY PAtient requests no PT this date. Thank you for this referral. jemma Lang,PT
[2017-09-23 16:00] VITALS: BP 137/59
[2017-09-23 16:11] LABS: ALDOLASE 002030 5.3 U/L (3.3-10.3); ANGIOTENSIN-CONVERTING ENZYME 5 U/L (14-82)
[2017-09-23 18:06] LABS: IGG SUBCLASS 1 543 mg/dL (248-810); IGG SUBCLASS 2 301 mg/dL (130-555); IGG SUBCLASS 3 24 mg/dL (15-102); IGG SUBCLASS 4 80 mg/dL (2-96)
[2017-09-23 20:00] VITALS: BP 157/62
--- NOTE | 2017-09-23 20:53 | NUR ---
DR. CALERO NOTIFIED OF PT N/V LG AMOUNT OF GREEN STOMACH BILE. N.O. RCVD FOR REGLAN 10MG IVP X1 NOW, PHENERGAN 25MG IM X1 NOW, PRILOSEC 20MG PO EVERY AM.
--- NOTE | 2017-09-23 22:48 | NUR ---
PT STATES THAT PRN ANTIEMETIC MEDS WERE EFFECTIVE FOR NAUSEA RELIEF.
[2017-09-24] VITALS: BP 148/66
--- NOTE | 2017-09-24 04:47 | NUR ---
24 HR chart check completed.
[2017-09-24 06:43] LABS: HEMATOCRIT 29.4 % (37.0-47.0); HEMOGLOBIN 9.4 g/dl (12.0-16.0); MEAN CELL VOLUME 89.6 fl (81.0-99.0); MEAN CORPUSCULAR HGB 28.7 pg (27.0-31.0); MEAN PLATELET VOLUME 10.3 fl (9.6-12.3); PLATELET COUNT AUTOMATED 236 10*3/uL (130-400); RED BLOOD COUNT 3.28 10*6/uL (4.10-5.10); RED CELL DISTRI WIDTH 14.7 % (0-14.5); WHITE BLOOD COUNT 12.2 10*3/uL (4.8-10.8)
[2017-09-24 06:58] LABS: CREATININE 4.95 mg/dL (0.55-1.02); POTASSIUM 4.2 mmol/L (3.5-5.1)
[2017-09-24 07:38] LABS: ATYPICAL LYMPHS 1 % (0-0); PLATELET SUFFICIENCY NORMAL (NORMAL); TOTAL CELLS COUNTED 100 #CELLS
[2017-09-24 07:41] VITALS: BP 154/68
--- NOTE | 2017-09-24 08:00 | NUR ---
PATIENT IS SITTING UP IN BED WAITING FOR BREAKFAST. NO COMPLAINTS OF PAIN OR DISCOMFORT AT THIS TIME. DINESH BILLSN.RCC
--- NOTE | 2017-09-24 08:07 | NUR ---
DR. CALERO IN TO SPEAK WITH PT, ABOUT PLAN OF CARE.
[2017-09-24 08:12] LABS: ATYPICAL PANCA <1:20 titer (Neg:<1:20); CYTOPLASMIC (C-ANCA) <1:20 titer (Neg:<1:20); PERINUCLEAR (P-ANCA) <1:20 titer (Neg:<1:20)
--- NOTE | 2017-09-24 08:19 | NUR ---
PT. CURRENTLY SITTING UP IN BED AWAITING BREAKFAST, NC ATTACHED DELIVERING 4L. NO CONCERNS OR SIGNS OF DISTRESS NOTED. CALL LIGHT WITHIN REACH, BED LOW, WHEELS LOCKED, AND HOB ELEVATED. STUDENT NURSE ASSIGNED TO PT. SEE SHIFT ASSESSMENT.
--- NOTE | 2017-09-24 08:30 | NUR ---
PT. HAS AN EMESIS WHILE EATING BREAKFAST. SPOKE WITH DR. CALERO ABOUT THIS, SEE NEW ORDERS.
--- NOTE | 2017-09-24 10:00 | NUR ---
PATIENT BATHED AND RESTING IN BED. PATIENT HAD SMALL BOWEL MOVEMENT. NO COMPLAINTS OF PAIN AT THIS TIME. PATIENT IS PREPPING FOR CT SCAN. PATIENT IS IN PLEASENT MOOD. DINESH HILL.[facility]
[2017-09-24 11:44] VITALS: BP 156/62
--- NOTE | 2017-09-24 11:51 | NUR ---
PATIENT COMPLETED PO HEATHER LOVE RN NOTIFIED AND WILL ALERT RADIOLOGY. PATIENT AND INFORMED OF NPO STATUS. DINESH HILL.[facility]
--- NOTE | 2017-09-24 12:45 | NUR ---
PHYSICAL THERAPY PAtient acutely ill and going for tests due to vomitting. Respectfully requests no PT this date. Ai mooney,PT
[2017-09-24 16:00] VITALS: BP 125/54
--- NOTE | 2017-09-24 17:01 | NUR ---
PULSE OX 4L AT REST WAS 92%. PULSE WAS 70. O2 WAS OFF FOR 5 MINUTES AND RECHECKED, PULSE OX ON R/A REST 81%, HEART RATE 77. O2 PLACED ON 4L, RN NOTIFIED OF RESULTS.
[2017-09-24 20:00] VITALS: BP 135/57
--- NOTE | 2017-09-24 23:14 | NUR ---
CALLED AND LEFT MESSAGE FOR DR. MATSON PT. HR. CHANGED TO AFIB FROM NORMAL SINUS
--- NOTE | 2017-09-24 23:19 | NUR ---
DR. MATSON CALLED IN AND NOTIFIED OF PT HEART RATE 90- 110'S AFIB. HOLD LABETALOL. TO WATCH PT. THROUGHOUT THE NIGHT AND HE WILL SEE HER IN THE MORNING. PT. CONTINUES IN AFIB.
--- NOTE | 2017-09-24 23:30 | NUR ---
COMMUNICATIONS DIRECTOR CALLED AND PT. CONVERTED BACK TO NORMAL SINUS HR 80'S.
[2017-09-25] VITALS: BP 138/76
--- NOTE | 2017-09-25 01:03 | NUR ---
PT. WENT BACK INTO AFIB HIGHEST HR 140 AND RETURNED BACK TO NSR HR 76 AFIB LASTED ABOUT 3 MINTUES. PT. WAS SLEEPING DURING THE EPISODE.
--- NOTE | 2017-09-25 01:22 | NUR ---
PT. SLEEPING OIL TREATER CALLED SAID PT HR IN 140'S WENT TO CHECK PT. PT. STILL SLEEPING AWAKEND PT. PT. NO C/O HAD PT. COUGH FEW TIMES WATCHING MONITOR PT. WAS IN AFIB AND THEN RETURNED TO NSR BACK TO HR 70'S. NO C/O CHEST PAIN VOICED AT THIS TIME. WILL CONTINUE TO MONITOR.
--- NOTE | 2017-09-25 01:30 | NUR ---
PT. HR CONVERTED BACK TO AFIB HR RANGING FROM 110'S TO 140'S BUT STAYING IN THE 110'S MOSTLY. PT. ASYPTOMATIC.
--- NOTE | 2017-09-25 02:36 | NUR ---
PT. IN AND OUT OF AFIB HR GOES TO 140'S THEN BACK TO NORMAL SINUS HR IN THE 70'S-80'S
--- NOTE | 2017-09-25 02:56 | NUR ---
PT IN AFIB AGAIN HR REACHING HIGH 156 BUT COMING BACK DOWN AND BOUNCING BETWEEN 110'S-120'S PT. ASYMPTOMATIC.
--- NOTE | 2017-09-25 03:10 | NUR ---
CONVERTED TO NSR HR 79 PER CM.
--- NOTE | 2017-09-25 05:05 | NUR ---
CONVERTED TO AFIB AGAIN HR HIGHEST 158 BUT COMING DOWN. PT. ASYMPTOMATIC. DENIES CP.
--- NOTE | 2017-09-25 06:20 | NUR ---
[id number] HR BACK IN AFIB REACHING INTO 160'S AND BACK DOWN TO 120'S. WENT INTO ROOM TO DRAW LAB AND CHECK ON PATIENT AND PT. WOULD NOT TURN HEAD TO RECOGNIZE THIS RN. PT. NOT TALKING, FLAT AFFECT. LABS DRAWN AND JENNIFER EXTRA LABS INCASE CHECKED BLOOD SUGAR 152. PT. STILL NOT RESPONDING TO VOICE NOR WOULD SHE SPEAK FLAT EXPRESSION. CALLED OTHER NURSES TO ROOM TO CHECK PATIENT. MEANWHILE BEEPED DR. CALERO AND DR. MATSON. OTHER NURSES ALSO CONFIRMER THIS AND RAPID RESPONSE CALLED. HAD SMALL EQUIPMENT OPERATOR PRINT STRIP AT THIS TIME HR STILL AFIB 180 PER CM. RAPID RESPONSE TEAM IN ROOM. NOTIFIED DR. THACKER, DR. RENAE, AND DR. ZAPATA ABOUT PT. CONDITION AND MENTAL STATUS CHANGE. EKG OBTAINED AND DECISION WAS MADE TO HAVE THE BRAIN ATTACK CRITERIA STARTED. DR. CALERO CALLED IN AND NOTIFIED HER OF WHAT WAS HAPPENING AND ORDERS RECEIVED AND DR. THACKER/DR. RENAE CARRIED OUT THESE ORDERS FOR STAT CT OF HEAD, START CARDIZEM DRIP AND TO TRANSFER PT. TO ICU. DR. CALERO SAID SHE WOULD SEE PT. TO CONSIDER TRANSFERRING OUT IF NEEDED. PT. TAKEN TO CT SCAN WITH RN AT HER SIDE. DR. MATSON CALLED IN AND NOTIFIED HIM OF PT. CONDITION AND HE AGREED WITH CURRENT MANAGMENT AND WILL SEE HER THIS AM. PT. TO ICU [address] SCAN AND WHEN CONNECTED TO HEART MONITOR PT. HAD CONVERTED TO NSR IN THE 80'S- 90'S. REPORT GIVEN TO RECEIVING RN SHANICE MONGE RN. PT. STILL NOT TALKING. CALLED GALILEA ARCINIEGA AND NOTIFIED HIM OF PT. CONDITION AND HE SAID HE WOULD BE HERE SOON POSSIBLE. CELL PHONE [phone].
[2017-09-25 06:45] LABS: HEMATOCRIT 33.8 % (37.0-47.0); HEMOGLOBIN 10.7 g/dl (12.0-16.0); MEAN CELL VOLUME 88.9 fl (81.0-99.0); MEAN CORPUSCULAR HGB 28.2 pg (27.0-31.0); MEAN CORPUSCULAR HGB CONC 31.7 g/dl (33.0-37.0); MEAN PLATELET VOLUME 10.4 fl (9.6-12.3); PLATELET COUNT AUTOMATED 279 10*3/uL (130-400); RED CELL DISTRI WIDTH 14.8 % (0-14.5); WHITE BLOOD COUNT 15.3 10*3/uL (4.8-10.8)
[2017-09-25 06:58] LABS: CREATININE 4.28 mg/dL (0.55-1.02); PHOSPHOROUS 3.7 mg/dL (2.5-4.9); POTASSIUM 3.9 mmol/L (3.5-5.1)
[2017-09-25 07:17] LABS: ATYPICAL LYMPHS 1 % (0-0); PLATELET SUFFICIENCY NORMAL (NORMAL); TOTAL CELLS COUNTED 100 #CELLS
[2017-09-25 07:18] LABS: TOXIC GRANULATION SLIGHT
[2017-09-25 08:00] VITALS: BP 119/89
--- NOTE | 2017-09-25 08:00 | NUR ---
PT BROUGHT TO ICCU R/T UNRESPONSIVENESS. PT IS NOW ALERT AND ORIENTED WITH AT BEDSIDE WHO STATES PT IS WAS FAKING EPISODE R/T LACK OF INTEREST FROM CHILDREN. DR CALERO INTO ASSESS PT AND MADE HER IMC AGAIN.
--- NOTE | 2017-09-25 08:11 | NUR ---
PHYSICAL THERAPY PAtient with medical complications and moved to ICCU. Please re-order PT when medically approprpaite. Thank you. Ai Lang ,PT
[2017-09-25 12:00] VITALS: BP 124/47
[2017-09-25 16:00] VITALS: BP 126/52
--- NOTE | 2017-09-25 17:30 | NUR ---
PT RESTING IN BED WITH HOB ELEVATED. BSG-[id number], SEE EMAR. NO C/O AT THIS TIME. OXYGEN IN USE. CALL LIGHT IN REACH. SEE SHIFT ASSESSMENT.
--- NOTE | 2017-09-25 18:00 | NUR ---
SITTING UP IN BED EATING BREAKFAST. TOLERATED ROUTINE MED WITH NO PROBLEM. CREAM APPLIED TO RASH ALL OVER BODY PER EMAR. CALL LIGHT IN REACH. BED ALARM ON.
[2017-09-25 20:00] VITALS: BP 122/68
--- NOTE | 2017-09-25 23:58 | NUR ---
RESTING IN BED WITH EYES OPEN. DENIES COMPLAINTS OF PAIN OR DISCOMFORT. WILL CONTINUE TO MONITOR. CALL LIGHT IN REACH.
[2017-09-26] VITALS: BP 138/52
[2017-09-26 06:02] LABS: ALBUMIN 2.6 gm/dl (3.1-4.5); CREATININE 4.43 mg/dL (0.55-1.02); PHOSPHOROUS 4.5 mg/dL (2.5-4.9); POTASSIUM 4.2 mmol/L (3.5-5.1)
[2017-09-26 06:05] LABS: VANCOMYCIN RANDOM 15.6 ug/mL
[2017-09-26] MEDS ORDERED: OMEPRAZOLE D/R20 MG PO (08:00)
[2017-09-26] MEDS ORDERED: PREDNISONE5 MG PO (08:00)
[2017-09-26] MEDS ORDERED: Topicort 0.05%15 GM T (08:00)
[2017-09-26] MEDS ORDERED: LABETALOL HCL100 MG PO (08:00)
--- NOTE | 2017-09-26 09:08 | NUR ---
DR CALERO IN AND DC PT AFTER SPEAKING WITH DR PETTIT. DR VENCES ALSO IN AND STATED OK WITH DC. PT IS ALERT AND ORIENTED AND READY TO GO HOME. AWAITING HUSBANDS ARRIVAL.
--- NOTE | 2017-09-26 10:00 | NUR ---
PTS JACKET AND SLIPPERS ARE MISSING. ALL PREVIOUS ROOMS SEARCHED AND HOUSEKEEPING CALLED. NOTIFIED DOCUMENTATION IMPROVEMENT SPECIALIST [employer] ALSO. LOST ITEM FORM COMPLETED.
--- NOTE | 2017-09-26 10:53 | NUR ---
Discharge instructions reviewed with patient/family. Patient receptive and verbalizes understanding. Follow-up care arranged. Written instructions given to patient/family. Dr Edmonds also wants pt to follow up in 2 wks and she is aware. SHANICE MONGE
== END 2017-09-26 10:30 | disposition home or self-care (01) | DRG 682 ==
LOC: ED 15:38 → 4E 15:56 → EDHOLD 15:56 → 4E 16:01 → ICCU 09-25 06:57 → 4E 09-25 15:03
PROVIDERS: Internal Medicine; Internal Medicine Critical Care Medicine; Internal Medicine Nephrology; ADMIT Internal Medicine
DX: N17.0 Acute kidney failure with tubular necrosis (principal); J96.01 Acute respiratory failure with hypoxia; J84.116 Cryptogenic organizing pneumonia; J90 Pleural effusion, not elsewhere classified; I95.9 Hypotension, unspecified; K31.84 Gastroparesis; E11.43 Type 2 diabetes mellitus with diabetic autonomic (poly)neuropathy; I48.0 Paroxysmal atrial fibrillation; I67.89 Other cerebrovascular disease; N14.1 Nephropathy induced by other drugs, medicaments and biological substances; J43.2 Centrilobular emphysema; A49.02 Methicillin resistant Staphylococcus aureus infection, unspecified site; F17.200 Nicotine dependence, unspecified, uncomplicated; G89.4 Chronic pain syndrome; E78.00 Pure hypercholesterolemia, unspecified; K21.9 Gastro-esophageal reflux disease without esophagitis; E66.3 Overweight; D64.9 Anemia, unspecified; N12 Tubulo-interstitial nephritis, not specified as acute or chronic; R62.7 Adult failure to thrive; I25.10 Atherosclerotic heart disease of native coronary artery without angina pectoris; T36.8X5A Adverse effect of other systemic antibiotics, initial encounter; I10 Essential (primary) hypertension; F41.1 Generalized anxiety disorder; E78.2 Mixed hyperlipidemia; Z87.81 Personal history of (healed) traumatic fracture; Z95.5 Presence of coronary angioplasty implant and graft; Z86.718 Personal history of other venous thrombosis and embolism; Z88.2 Allergy status to sulfonamides; Z88.6 Allergy status to analgesic agent; Z91.041 Radiographic dye allergy status; Z79.01 Long term (current) use of anticoagulants; Z91.013 Allergy to seafood; Y92.89 Other specified places as the place of occurrence of the external cause; Z79.1 Long term (current) use of non-steroidal anti-inflammatories (NSAID); Z88.1 Allergy status to other antibiotic agents; Z79.4 Long term (current) use of insulin; Z87.440 Personal history of urinary (tract) infections; I25.2 Old myocardial infarction; Z90.49 Acquired absence of other specified parts of digestive tract; Z98.51 Tubal ligation status; Z68.26 Body mass index [BMI] 26.0-26.9, adult

== ENCOUNTER 2017-09-28 05:30 | Inpatient (IN) | payer MEDICARE ==
[~2017-09-28] VITALS: Ht 157.5 cm; Wt 72.6 kg
[2017-09-28] VITALS (28 sets, daily range): BP systolic 127–174; BP diastolic 52–74
--- NOTE | ~2017-09-28 | PR ---
[place], [place] PROGRESS NOTE NAME: CINDI [facility]INIEGA [id number] UNIT #: [id number] ROOM: [facility] DOCTOR: ROBERT BALDERRAMAJANUARY BIRTHDATE: [birth year] DOS: 09/29/2017 SUBJECTIVE: The patient remains intubated. She is currently on CPAP and will probably be extubated soon. They are about to obtain ABGs. Her blood cultures are negative. Sputum cultures pending. MRSA screen is negative. Her rash is significantly improved today from yesterday. Urine cultures negative thus far. She remains on empiric linezolid and Merrem as well as IV fluids. She has been afebrile. White count has significantly improved, it has come down to 14.4, platelets are 235. Creatinine is also improving, it is down to 3.89, BUN 77. Chest x-ray film reviewed. VITAL SIGNS: Show temperature 97.6, pulse 72, respirations 12, BP 174/94. She has had no BMs, no emesis. CURRENT MEDICATIONS: Milk of magnesia, Cardizem, Eliquis, Protonix, Prilosec, Normodyne, Topicort, Zyvox, Lipitor, Glucotrol, Merrem, Ativan, propofol. PHYSICAL EXAMINATION: GENERAL Alert, agitated, 71-year-old female. HEAD, EYES, EARS, NOSE AND THROAT: Normocephalic, remains intubated. LUNGS: Clear to auscultation bilaterally. Respirations even and unlabored. HEART: Regular rhythm. No murmur appreciated. ABDOMEN: Soft. Positive bowel sounds. Mild distention. EXTREMITIES: +2 edema all 4 extremities. She has systemic rash which appears much improved from yesterday. Dong catheter with little ludmila urine. ASSESSMENT AND PLAN: Fever and leukocytosis, which are improving. Blood and urine cultures remain negative. Chest x-ray has been without infiltrate. She also has a significant adverse drug reaction, rash due to vancomycin as well as she suffered acute kidney injury, both of which appear to be improving. PLAN: At this point, we will continue the empiric Zyvox and Merrem and follow up on cultures. JANUARY CONCHIS JONES [place], [place] PROGRESS NOTE NAME: CINDI ARCINIEGA UNIT #: [id number] ROOM: [facility] DOCTOR: ROBERT BALDERRAMA,JANUARY BIRTHDATE: [birth year] SCARLETT WHYTE MD CM:PNNARA [id number] JANUARY ROBERT BALDERRAMA 09/30/17 0543 interface
--- NOTE | ~2017-09-28 | PR ---
[place], [place] PROGRESS NOTE NAME: [facility]GA [facility] [id number] UNIT #: [id number] ROOM: [facility] DOCTOR: VANGIE BOWER MD,DANIEL BIRTHDATE: [birth year] DOS: 10/02/2017 SUBJECTIVE: She has been noted quite comfortable at this time, resting in the bed without any acute distress. She has been showing continued reduction of the skin rash. Shortness of breath has been noted, stable. There were no symptoms of chest pain. OBJECTIVE: VITAL SIGNS: For the patient, which was recorded shows the temperature was noted as normal. The respiratory rate recorded as 20, heart rate of 54-60, blood pressure 156/67-144/62. HEENT: Examination was noted without any acute abnormal findings. CARDIOVASCULAR: S1, S2 is audible. LUNGS: The patient was noted without any wheezing or crackles. ABDOMEN: Soft, nontender. Bowel sounds are present. EXTREMITIES: Without any acute edema. LABORATORY DATA: BMP today: BUN 81, creatinine of 3.48, Glucose 228. Urine for legionella antigen was negative. Blood glucose ranged between 445-439. IMPRESSION: The patient who has been noted with current pulmonary infiltration in the lungs with bilateral pleural fluid. Allergic drug rash as well as acute kidney injury related to the vancomycin. PLAN OF MANAGEMENT: Decrease the prednisone for the patient to 40 mg daily because of severe hyperglycemia. Continue other supportive plan of management and care. Usual treatment. All other supportive plan of management and therapies. DANIEL VENCES MD CM:PNTRANS [id number] DANIEL BOWER MD 10/02/17 1307 interface
--- NOTE | ~2017-09-28 | CON ---
[place], [place] REPORT OF CONSULTATION NAME: [facility]CINIEGA [facility] [id number] UNIT #: [id number] [facility] DOCTOR: ROBERT BALDERRAMA,JANUARY BIRTHDATE: [birth year] DOS: HISTORY OF PRESENT ILLNESS: The patient is a 71-year-old female ____ infectious disease. We originally saw her. She was admitted on August 21 originally and had MRSA bacteremia without an identifiable source. Her echo was negative. She was receiving vancomycin with an intended course of 6 weeks, instead she developed acute kidney injury from her VANCOMYCIN and was sent in to [facility] from our office on September 19. Her reaction progressed to a systemic rash. She was eventually placed on steroids, all antibiotics were stopped and she was just discharged home on the . This morning, she was found down at home by her family. She has presented with WBCs of 27,000 and a temperature of 101. She was still on prednisone. ID is consulted for sepsis. Blood cultures thus far from this a.m. are pending. She had urinary antigens sent for possible pneumonia, but her chest x-ray is clear. She had no emesis, no diarrhea. Per nursing, she is unable to give any review of systems. The patient herself is intubated and sedated. UA had +1 ____, wbc's 31-40 per high powered field. PAST MEDICAL HISTORY: As above, coronary artery disease, emphysema, hypertension, GERD, hyperlipidemia, diabetes, paroxysmal AFib. SOCIAL HISTORY: Smokes half pack of cigarettes per day. No alcohol or illicit drug use. ALLERGIES: Include SULFA, IODINE, HYDROCODONE, IVP DYE, CEPHALEXIN, SHELLFISH, VANCOMYCIN. LABORATORY DATA: WBC is 27.2, platelets 280, significantly elevated eosinophils as well as neutrophils. BUN 80, creatinine 4.46. LFTs within normal limits. Troponin 0.057. Blood and urine cultures are pending, as is her MRSA screen. REVIEW OF SYSTEMS: As above in history of present illness, unable to obtain any from the patient as she is again intubated and sedated. She continues with diffuse systemic rash. PHYSICAL EXAMINATION: VITAL SIGNS: Show a temperature of 98.2, pulse 60, respirations 12, BP 150/58. GENERAL: A 71-year-old female, again intubated, sedated. HEAD, EYES, EARS, NOSE AND THROAT: Normocephalic. NECK: Seems supple. LUNGS: Clear to auscultation bilaterally. Respirations even and unlabored. HEART: Regular rhythm. No murmur appreciated. ABDOMEN: Soft, positive bowel sounds, nondistended. EXTREMITIES: Trace edema. She has a newly placed PICC in the right upper extremity that was just placed today. She has a newly placed PICC in the right upper extremity that was just placed today. SKIN: Warm, dry, systemic red rash. GENITOURINARY: Dong catheter with scant yellow urine. [place], [place] REPORT OF CONSULTATION NAME: CINDI ARCINIEGA UNIT #: [id number] ROOM: [facility] DOCTOR: ROBERT BALDERRAMAJANUARY BIRTHDATE: [birth year] ASSESSMENT AND PLAN: Possible sepsis with leukocytosis and fever, adverse drug reaction, likely carryover from the reaction to her VANCOMYCIN with significant rash, continues with her acute kidney injury as well. She is being followed by Renal. She is currently on Zyvox and Merrem, which would be continued at this point, follow up on her labs and adjust antibiotics accordingly. During her original workup at the beginning of August, she did have some neck pain. Scan at that time did not demonstrate any infection and during her followup. She stated her pain was same as it is chronically, but if she has positive blood cultures for methicillin-resistant Staphylococcus aureus, again she will need further workup possibly of the neck as well as the heart ____. Case discussed with Dr. Scarlett Whyet. ADDENDUM After reviewing the chart, labs radiographs and microbiology, I agree with the above plans as described. We will follow the patient up clinically and adjust accordingly. Thank you for allowing us to participate in the patient's care. LINDA JONES CNP SCARLETT WHYTE MD CM:CONSTR:REPORT OF CONSULTATION 1444 09/29/17 0714 interface
--- NOTE | ~2017-09-28 | PR ---
[place], [place] PROGRESS NOTE NAME: CINDI ARCINIEGA UNIT #: [id number] ROOM: 503 DOCTOR: DINA INGRAM MD BIRTHDATE: [birth year] DOS: 10/02/2017 SUBJECTIVE: The patient is more awake and alert, but still pleasantly confused, in no visible distress anymore. OBJECTIVE: VITAL SIGNS: Blood pressure 144/62, heart rate 54 beats per minute, breathing 20 times per minute, temperature 98 degrees Fahrenheit. GENERAL APPEARANCE: The patient is alert and oriented x 3, in no visible distress, except for widespread drug rash all over her body, macular type. HEENT AND NECK: Exam within normal limits. CARDIOVASCULAR SYSTEM: Heart rate is regular in rate and rhythm. S1 and S2 normally audible. LUNGS: Clear to auscultation. ABDOMEN: Soft, nontender. No obvious organomegaly. Bowel sounds are present. EXTREMITIES: Without significant cyanosis or edema. IMPRESSION AND PLAN: 1. The patient with severe drug rash still present all over body, slowly improving. 2. Acute over chronic kidney disease with BUN and creatinine elevated at 81 and 3.4, gradually improving with hydration. 3. Acute tubular necrosis. 4. Acute respiratory failure, status post extubation. Breathing continues to improve. 5. Severe leukocytosis, resolved with treatment. 6. Advance disability and adult failure to thrive with chronic mental confusion and dementia with suboptimal prognosis, discussed with her on multiple occasions. I have recommended a do not resuscitate -- comfort care code status. The patient working on physical therapy. DINA INGRAM MD CM:PNTRANS [id number] DINA INGRAM MD 10/03/17 0507 interface
--- NOTE | ~2017-09-28 | PR ---
[place], [place] PROGRESS NOTE NAME: CINDI ARCINIEGA [facility] #: [id number] UNIT #: [id number] ROOM: [facility] DOCTOR: VANGIE BOWER MD,DANIEL BIRTHDATE: [birth year] DOS: 09/30/2017 SUBJECTIVE: She has been successfully liberated from mechanical ventilator yesterday. She was complaining of some pain in the lower back this morning. She has noted diffuse rash of the skin from previously allergic drug reaction. She denies any symptoms of acute chest pain. There was minimal cough, no sputum expectoration. Denies any abdominal pain. OBJECTIVE: VITAL SIGNS: For the patient, which has been recorded shows the temperature remains normal to low grade 99.7 degree Fahrenheit, respiratory rate of 18-22, heart rate 70-73, blood pressure 160/80-133/62. Pulse oxygen saturation with the patient on 3 L nasal cannula was noted 94% saturation. HEENT: No new change. NECK: Supple. CARDIOVASCULAR: S1, S2 audible. LUNGS: The patient was noted with decreased breath sounds in lower portion of the lungs bilaterally. ABDOMEN: Soft and nontender. EXTREMITIES: No edema. SKIN: Diffuse rash of the skin was noted. LABORATORY DATA: Blood culture from 09/28/2017 showed no bacterial growth, preliminary. CBC this morning, WBC count 24.3, hemoglobin 9, hematocrit 27.4, and platelet count 233,000. BMP, BUN 72, creatinine 3.72. Culture of the sputum of the patient was noted as normal catracho from endotracheal aspirate. Urine culture of the patient was also noted with no bacterial growth. Ultrasound of the chest of the patient was performed at the bedside personally. A small possible medium pleural fluid noted in the right side and a small pleural fluid on the ____ side was also noted. IMPRESSION: 1. The patient with allergic drug reaction. The patient with acute respiratory failure, low grade fever, and leukocytosis. The patient has evidence of bilateral pleural fluid most likely related to acute kidney injury with area of atelectasis, rule out pneumonia of the left lower lobe as well. 2. Acute respiratory failure, status post successful liberation from mechanical ventilation. PLAN OF MANAGEMENT: The patient has been getting multiple broad spectrum intravenous antibiotics and there has not been any source of infection identified. The patient has been managed by the infectious disease specialist. I will defer the antibiotic use of the patient if necessary or not at this point to their assessment. At this time for current allergic drug reaction add Solu-Medrol 40 mg b.i.d. dosing. Other supportive therapy, plan of management continue as well. Usual care. Close monitoring of the patient's glucose and other symptoms will be done. Other supportive therapy, plan of management and care. Diuretic therapy, relatively low dose might be beneficial for this patient. If the fluid increases, we will give further at this point of time. Intermittent monitoring of the chest x-ray will be done. [place], [place] PROGRESS NOTE NAME: CINDI ARCINIEGA UNIT #: [id number] ROOM: [facility] DOCTOR: VANGIE BOWER MD,DANIEL BIRTHDATE: [birth year] DANIEL VENCES MD CM:ROXANNE [id number] 1 DANIEL BOWER MD 10/01/17 0133 interface
--- NOTE | ~2017-09-28 | CON ---
[place], [place] REPORT OF CONSULTATION NAME: [id number] UNIT #: [id number] ROOM: [facility] DOCTOR: VANGIE BOWER MD,DANIEL BIRTHDATE: [birth year] DOS: 09/29/2017 PULMONARY CRITICAL CARE EVALUATION AND MANAGEMENT REASON FOR CONSULTATION: Exacerbation of current acute respiratory failure. HISTORY OF PRESENT ILLNESS: This is a 71-year-old female patient, has been known to me. The patient has been recently admitted in the hospital and noted with acute kidney injury which developed as well as noted with allergic drug reaction to the lungs with bilateral pulmonary infiltration. The patient remained in the hospital for several days. The patient was noted with progressive resolution improvement in the acute illness of the patient. She was discharged home on 09/26/2017. She has been readmitted to the hospital, as the patient was found to be nonresponsive at home. She has been intubated, started on mechanical ventilation. The patient has been admitted to the hospital at this time for further medical management, noted on mechanical ventilator. She has been continued on assist control, volume control mechanical ventilation. For the renal failure for this patient, which is noted acute. She did not require hemodialysis previously and noted with conservative and progressive improvement. The patient has been currently intubated, on mechanical ventilator. Has not been noted any excessive secretion production aspirated from the endotracheal tree, but there were findings of hemoptysis. REVIEW OF SYSTEMS: Could not be completed since the patient is intubated. All the other history also essentially contained in this document is review of my past consideration and review of the medical records extensively from recent hospitalization in this hospital. PAST MEDICAL HISTORY: 1. History of acute kidney injury secondary to ATN/interstitial nephritis. Vancomycin toxicity was considered. 2. History of known COPD. 3. Methicillin-resistant Staphylococcus aureus bacteremia, unknown source versus pneumonia, small right lower lobe, treated in the past with vancomycin approximately 2-1/2 weeks. 4. Hypercholesterolemia. 5. Generalized anxiety disorder. 6. Essential hypertension. 7. Deep venous thrombosis in lower extremities. 8. Hyperlipidemia. 9. Unresponsive episode noted on last admission, possibility of TIA considered. 10. Acute kidney injury which has been resolving, related to vancomycin. 11. Bilateral pulmonary infiltration, considered allergic drug reaction in the lungs, treated conservatively and was resolving. 12. History of atrial fibrillation, on anticoagulation with Eliquis. PAST SURGICAL HISTORY: Cardiac catheterization and coronary stents insertion. SOCIAL HISTORY: The patient is , living at home. She has 5 children. She does not have any history of occupation related to pulmonary exposure. [place], [place] REPORT OF CONSULTATION NAME: CINDI ARCINIEGA UNIT #: [id number] ROOM: [facility] DOCTOR: VANGIE BOWER MD,DANIEL BIRTHDATE: [birth year] Tobacco use was noted for patient as about a pack of cigarettes per day since teenager, which had been discontinued previously. FAMILY HISTORY: Unknown by the patient. MEDICATIONS: The current administered medication noted as use of Cardizem CD, Eliquis, omeprazole, Protonix, labetalol, Lipitor, glipizide, Zyvox, meropenem, IV propofol and other p.r.n. medications administration. DRUG ALLERGIES: 1. VANCOMYCIN. 2. SULFA DRUG. 3. IODINE. 4. KEFLEX. 5. VANCOMYCIN. PHYSICAL EXAMINATION: GENERAL: A 71-year-old female who has been noted currently awake and alert without any acute distress. Height of the patient recorded 5 feet 2 inches, weight 260 pounds, BMI 29.3. VITAL SIGNS: The patient was noted as normal temperature of 99.6 degree Fahrenheit. Admission temperature rectal was noted 101 degree Fahrenheit, respiratory 14-16, heart rate of 74-68, blood pressure 143/57-141/59. Pulse oxygen saturation of patient on CPAP was noted as 35 percent saturation of oxygen. HEENT: Shows head was atraumatic. Eyes nonicterus. NECK: Supple. The patient is currently intubated. CARDIOVASCULAR SYSTEM: S1, S2 is audible. LUNGS: Moderate decreased breath sounds in the lungs were noted bilaterally. ABDOMEN: Flat, soft, nontender. Bowel sounds present. EXTREMITIES: There was no edema, clubbing or cyanosis visible. CENTRAL NERVOUS SYSTEM: The patient has been noted moving upper and lower extremities previously with reduction of the sedation. Mental status is noted appropriate with the reduction of sedation per nursing staff. SKIN: No lesions or rashes. MUSCULOSKELETAL: No acute visible deformities. LABORATORY DATA: Lactic acid on admission yesterday 1.6. PT/PTT yesterday was noted with normal PT and PTT. CBC yesterday on admission of WBC 27.2, hemoglobin 9.4, hematocrit 29.7, platelet count 280,000, 69% segmented neutrophils. CMP of the patient, glucose 80, BUN 4.46, glucose 291. ProBNP 11,483. Arterial blood gas 40% oxygen on the mechanical ventilator, pH of 7.42, pCO2 of 38, pO2 of 74. Troponin for this patient which was done 3 sets from admission noted all normal. CBC this morning, WBC count 14.4, hemoglobin 9.4, hematocrit 29.1, platelet count 235,000. BMP of patient on 09/29/2017, BUN 77, creatinine 3.89, sodium 133. Urine culture of the patient, no bacterial growth preliminary, final culture results are pending. Arterial blood gas on assist controlled mode, 45% oxygen, pH of 7.48, pCO2 29, pO2 106. Endotracheal aspirate for the patient, preliminary culture, the patient was noted with no bacterial growths. [place], [place] REPORT OF CONSULTATION NAME: CINDI ARCINIEGA UNIT #: [id number] ROOM: [facility] DOCTOR: VANGIE BOWER MD,DANIEL BIRTHDATE: [birth year] The review of the radiology data: The chest x-ray of the patient that was done on and of this month and some of the previous x-rays were reviewed. The chest x-ray of the patient shows, on 09/28/2017 has a right PICC line in place. Interstitial infiltration noted with a small pleural fluid area of atelectasis. The chest x-ray of the patient that was done on 09/29/2017 shows congestive heart failure remains persistent. Pleural fluid was noted somewhat increased with increased infiltration of the left lower lobe. IMPRESSION: 1. The patient has been currently admitted to the hospital, noted unresponsiveness, etiology unclear to me. Possibility of acute new infection cannot be completely excluded. 2. Small pleural fluid currently noted, possibly moderate to the left side. Related pneumonia or other etiologies have been considered. 3. Fluid overload secondary to the current acute kidney injury which is resolving has been noted as well. 4. Past history of questionable cerebrovascular accident and transient ischemic attack as well. 5. Recent hospitalization secondary to acute kidney injury patient and toxicity in lung related to vancomycin as well. Possibility of acute pneumonia in the patient's left lower lobe cannot be completely excluded. If the pneumonia would be considered, possible consideration of aspiration may be likely. So far, the blood culture for the patient, which has been taken has not reported any results. The preliminary culture of the endotracheal aspirate of the patient was also noted with pending culture results. PLAN OF MANAGEMENT: The patient will be started for assessment for the possible liberation from mechanical ventilation. She has been switched from assist control mode of ventilation with the CPAP of 5, pressure support of 10, as the patient was noted awake with discontinuation of sedation. The current mechanical ventilation will be continued for approximately 2 hours. The arterial blood gas will be assessed; if noted adequate, possible consideration of liberation from mechanical ventilation. I intend to repeat another CT scan of the chest upon stability of this patient. The patient has been seen by the infectious disease specialist and was getting broad spectrum intravenous antibiotics for the coverage of Gram-positive, Gram-negative organisms. Zyvox had been used for this patient for the Gram-positive coverage and meropenem for the Gram-negative coverage based on her kidney functions. All other supportive therapy and plan of management; if pleural fluid enlarges, certainly thoracentesis could be considered for the patient with ultrasound guidance. All other supportive plan of management, monitor culture results prior to making any further changes and recommendations in medical management. Ventilator bundle management will be continued for this patient as long as the patient is intubated. Feeding was not given to the patient for the last 24 hours since the patient was thought to be possibly liberated from mechanical ventilation. If the patient remains on the mechanical ventilator for the next 24 hours, feeding could be started today. DVT prophylaxis as well. The patient is getting Eliquis. [place], [place] REPORT OF CONSULTATION NAME: CINDI ARCINIEGA UNIT #: [id number] ROOM: [facility] DOCTOR: DANIEL KRISHNAMURTHY MD BIRTHDATE: [birth year] Total time of pulmonary critical evaluation and management was 40 minutes. DANIEL VENCES MD CM:CONSTR:REPORT OF CONSULTATION 1533 09/30/17 0343 interface
--- NOTE | ~2017-09-28 | CON ---
[place], [place] REPORT OF CONSULTATION [id number] UNIT #: [id number] [facility] DOCTOR: ROSELYN PETTIT MD BIRTHDATE: [birth year] DOS: 09/28/2017 NEPHROLOGY CONSULTATION REASON FOR CONSULTATION: Suhsn-[id number]-[id number] kidney injury. HISTORY OF PRESENT ILLNESS: The patient is a 71-year-old woman that was recently admitted to the hospital with acute kidney injury that we are following. She had severe acute kidney injury with a creatinine of over 5 and had significantly elevated vancomycin levels over 50. She had a prior history of MRSA bacteremia of an unclear source with negative UYEN and was supposed to be on 6 weeks of treatment with IV vancomycin. Her prior baseline was normal for her kidney function, but then at the same time when her vancomycin was noted to be elevated, her creatinine was elevated to 4.6. She was hospitalized. She had stabilization of her creatinine, but did have ____ worsening of her rash that also started to involve her neck and developed significant skin tightening. She had an acidosis, which corrected. She also had mild hyponatremia, which corrected. Her vanc levels on 09/19/2017 were 52 and by the time of discharge, they were down to 15.6. She had negative serologies with ANCA, p-ANCA, C-ANCA, INGRID, and rheumatoid factor. She had elevated IgE levels and it was suspected that the patient had either red neck syndrome or eosinophilic hypersensitivity reaction to the vancomycin. She has blossomed in terms of her rash since being rehospitalized. She is not able to provide any reliable medical history or review of systems at this time as she is intubated and sedated. She apparently was found down or confused by her family with a low pulse ox. She was intubated when she arrived to the Emergency Department. Her initial blood gas was actually I think on the ventilator and her pH was 7.42, pCO2 is 39 and PaO2 was 74 on 40%. Most recent urinalysis continues to show proteinuria, 2+, it was stable from last admission. There is also a Dong catheter in place. There is no gross blood visualized at this time. Her most recent creatinine is still 4.4, which is where it was when she was discharged 2 days ago and down from the peak of 6.03 on 09/22/2017. Her baseline was 0.73 on 09/16/2017 and again, it went up from the 27th through the 30th from 0.73-4.56, but she never required dialysis and she maintains urine output it seems. REVIEW OF SYSTEMS: As above, cannot be obtained. PAST MEDICAL HISTORY: Cannot be obtained. Reviewed from prior consult dated 09/20/2017. FAMILY HISTORY: Cannot be obtained. Reviewed from prior consult dated 09/20/2017. SOCIAL HISTORY: Cannot be obtained. Reviewed from prior consult dated 09/20/2017. PHYSICAL EXAMINATION: VITAL SIGNS: 150/58; pulse ox 97% on 40%; temperature 98.8, T-max was 101 on arrival; heart rates are 52. GENERAL: She is intubated and sedated. [place], [place] REPORT OF CONSULTATION NAME: CINDI ARCINIEGA UNIT #: [id number] ROOM: [facility] DOCTOR: ROSELYN PETTIT MD BIRTHDATE: [birth year] SKIN: Has significantly blossomed maculopapular and vesicular rash with areas of confluence in the trunk, lower extremities, and upper extremities. The face seemingly has improved, but still appears to have some red, blotchy areas. The thickness of the skin around the neck seems to have improved slightly as well. HEENT: Sclerae are anicteric. Pupils are equal. NECK: Has no JVD or lymphadenopathy. Trachea is midline. ET tube is in place. OG tube is in place. LUNGS: Clear bilaterally without audible rales or wheeze. CARDIOVASCULAR: Rate is slightly slow, but regular. Sinus bradycardia in the 50s. No lift or heave. ABDOMEN: Soft, nontender, nondistended. No rebound, no guarding. EXTREMITIES: Other than the rash have normal pulses in all 4 extremities. NEUROLOGIC: No myoclonic jerking. Seems sedated at this time limiting in further evaluation. LABORATORIES AND DIAGNOSTICS: ABG as reviewed above. INR 1.2. Troponin 0.057. ProBNP 11,400. Urinalysis 1.025, 2+ protein, 2+ blood with 10-15 coarse granular casts. White blood cell count 27.2; hemoglobin 9.4; platelets 280,000. Chest radiograph negative. Mild hilar infiltrates, possible edema. Blood cultures and urine cultures are pending at this time. She has a PICC line in place now. ASSESSMENT AND PLAN: Severe acute kidney injury. Overall, renal function appears stable and nonoliguric. The likely etiology was severe acute kidney injury from acute tubular necrosis with coexisting and compounding vancomycin-associated nephrotoxicity with acute interstitial nephritis as well playing a role. She has a diffuse rash which is likely from the prior supratherapeutic vancomycin. At this point, vancomycin levels have been improving and she has not been given any further doses; however, she has developed a fever, Infectious Disease has been consulted. Cultures have been drawn. Continue to follow for any further recurrence of past bacteremia. In regards to her current labs, her electrolytes are stable. She has acceptable acid-base status on the ventilator. She has respiratory failure from an unclear cause and possible metabolic encephalopathy versus ____ altered mental status from another cause. I would agree with a very low rate of gentle maintenance IV fluids as you are doing while the patient is n.p.o. and intubated and sedated. Her anemia will need to be followed for any signs of acute losses and her urine sediment is consistent with prior UA. No indication for acute biopsy at this time and no acute indication for dialysis at this time. We will continue to follow closely along with you and continue supportive care. [place], [place] REPORT OF CONSULTATION NAME: [facility]IEGA [id number] UNIT #: [id number] ROOM: [facility] DOCTOR: ROSELYN PETTIT MD BIRTHDATE: [birth year] ROSELYN PETTIT MD CM:CONSTR:REPORT OF CONSULTATION 1613 09/29/17 0540 interface
--- NOTE | ~2017-09-28 | PR ---
[place], [place] PROGRESS NOTE NAME: [id number] UNIT #: [id number] ROOM: [facility]- DOCTOR: DINA INGRAM MD BIRTHDATE: [birth year] DOS: 09/29/2017 SUBJECTIVE: The patient is awake, pleasantly confused. OBJECTIVE: VITAL SIGNS: Blood pressure 154/61, heart rate 58 beats per minute, breathing 12 times per minute, temperature 98 degrees Fahrenheit. GENERAL APPEARANCE: The patient is alert and oriented x 3, in no visible distress, except for generalized weakness and mental confusion and macular drug rash all over her body, which is lightning up. HEENT AND NECK: Exam within normal limits. CARDIOVASCULAR SYSTEM: Heart rate is regular in rate and rhythm. S1 and S2 normally audible. LUNGS: Clear to auscultation. ABDOMEN: Soft, nontender. No obvious organomegaly. Bowel sounds are present. EXTREMITIES: Without significant cyanosis or edema. IMPRESSION AND PLAN: 1. The patient is status post acute respiratory failure, status post intubation and mechanical ventilation, now extubated, breathing better. Dr. Rogel was following. 2. Urinary tract infection suspected, but urine cultures have been negative so far. The patient still has leukocytosis with white cell count of 14,400. The patient's leukocytosis has improved from 27,000 and stool studies for Clostridium difficile colitis are still pending. 3. Acute over chronic kidney failure secondary to vancomycin. Kidney function is being followed and patient being followed by Nephrology. 4. Paroxysmal atrial fibrillation. The patient anticoagulated with apixaban and heart rates are controlled with Cardizem. 5. Benign essential hypertension with controlled blood pressures. 6. The patient with history of coronary artery disease of the [place] vessels without chest pains. DINA INGRAM MD CM:PNNARA [id number] DINA INGRAM MD 09/30/17 0335 interface
--- NOTE | ~2017-09-28 | WRIGHTHP ---
[place], [place] PATIENT HISTORY AND PHYSICAL EXAM NAME: CINDI ARCINIEGA [facility] #: [id number] UNIT #: [id number] ROOM: [facility] DOCTOR: DINA INGRAM MD BIRTHDATE: [birth year] DOS: 09/28/2017 HISTORY OF PRESENT ILLNESS: A 71-year-old female with a past medical history of: 1. Discharge from [facility] 2 days earlier after treatment for acute renal failure, acute tubular necrosis and nephrotoxicity from VANCOMYCIN. 2. Paroxysmal atrial fibrillation. 3. Adult failure to thrive. 4. MRSA sepsis. 5. Benign essential hypertension. 6. Generalized anxiety disorder. 7. Chronic pain syndrome. 8. Trimalleolar fracture with repair and removal of hardware. 9. Mixed hyperlipidemia. 10. Centrilobular emphysema and pulmonary fibrosis, with history of nicotine smoke dependence. 11. Coronary artery disease of [place] vessels and stent placement. The patient presented to the Emergency Department with increased shortness of breath, hypoxemia and elevated white cell count. The patient was found to have urinary tract infection and she was intubated, put on a ventilator and admitted to the ICU. After admission, the patient is deeply sedated and on mechanical ventilation. White cell counts are elevated to 27,000, hemoglobin 9.4. BUN and creatinine elevated to 18 and 4.4, blood sugar of 291 and proBNP at 11,500. The patient is critically sick and being closely monitored in the ICU and she maintains a full code status. No recent chest pains, other GI or urinary symptoms. REVIEW OF SYSTEMS: LUNGS: Increasing shortness of breath and respiratory failure. GASTROINTESTINAL: No nausea, vomiting, diarrhea or constipation. CARDIOVASCULAR: No chest pains or palpitations. FAMILY HISTORY: Noncontributory. MEDICATIONS: Diltiazem, apixaban, omeprazole, Protonix, labetalol, Lipitor, glipizide, lorazepam. ALLERGIES: Known allergies to IODINE, SULFUR, VICODIN, CEPHALEXIN, SHELLFISH. PHYSICAL EXAMINATION: GENERAL: The patient is sedated, intubated and on mechanical ventilation, with a drug rash macular type all over her body, which was already present prior to admission. The patient intubated and on mechanical ventilation. HEENT AND NECK: Extraocular movements are intact. Sclerae are anicteric. Oral mucosa is moist and clean. No obvious facial weakness. Neck is supple without any lymphadenopathy. No thyromegaly. No JVD. No carotid arterial bruits. LUNGS: Clear to auscultation. No wheezing. No rhonchi. CARDIOVASCULAR SYSTEM: Heart rate is regular in rate and rhythm. S1 and S2 [place], [place] PATIENT HISTORY AND PHYSICAL EXAM NAME: CINDI ARCINIEGA UNIT #: [id number] ROOM: [facility] DOCTOR: DINA INGRAM MD BIRTHDATE: [birth year] normally audible. No significant murmur or any other abnormal cardiac sounds. ABDOMEN: Soft, nontender. No obvious organomegaly. Bowel sounds are present. No obvious herniation. EXTREMITIES: Without significant cyanosis or edema. Warm to touch. CENTRAL NERVOUS SYSTEM: Alert and oriented x 3. Cranial nerves II-XII are intact. Speech is normal. The patient is able to move all extremities. Normal muscle strength. Deep tendon reflexes are equal on both sides. Plantars were downgoing. LABORATORY DATA: White cell count of 27,200, hemoglobin 9.4,m normal platelets. BUN and creatinine 18 and 4.4. Normal serum electrolytes otherwise. Albumin low at 2.7. Slight elevation of troponin I level at 0.057. IMPRESSION AND PLAN: 1. The patient presenting with acute respiratory failure, admitted to ICU. She is intubated and on mechanical ventilation and blood gases are being monitored. Dr. Rogel, the payroll specialist will follow her. The patient is deeply sedated. 2. Urinary tract infection. Urine culture is pending. I am getting infectious disease specialist, Dr. Serene Faustin to follow her again. She was also seeing the patient during last admission recently. 3. Acute leukocytosis with white cell count of 27,000. The patient has urinary infection. I will also check her for Clostridium difficile colitis. The patient has no diarrhea. Blood counts will be monitored daily. 4. Acute over chronic kidney failure, considered to be secondary to VANCOMYCIN that she received before this admission. The patient has been started on hydration with normal saline and kidney function will be monitored on daily basis and I will ask Nephrology to follow. 5. Paroxysmal atrial fibrillation with controlled heart rates. The patient anticoagulated with apixaban and heart rates are controlled with Cardizem. 6. Benign essential hypertension with controlled blood pressures with treatment. 7. History of coronary artery disease without any chest pains and history of stent placement. [place], [place] PATIENT HISTORY AND PHYSICAL EXAM NAME: CINDI ARCINIEGA UNIT #: [id number] ROOM: [facility] DOCTOR: DINA INGRAM MD BIRTHDATE: [birth year] DINA INGRAM MD CM:HISPHYS:PATIENT HISTORY AND PHYSICAL EXAMINATION 1328 03 DINA INGRAM MD 09/28/17 180 interface
--- NOTE | ~2017-09-28 | PR ---
[place], [place] PROGRESS NOTE NAME[id number] UNIT #: [id number] [facility]OM: [facility]- DOCTOR: DINA INGRAM MD BIRTHDATE: [birth year] DOS: 09/30/2017 SUBJECTIVE: The patient is status post extubation after treatment for acute respiratory failure, more awake and alert. Generalized weakness and macular skin rash all over, apparently a drug rash. OBJECTIVE: GENERAL APPEARANCE: The patient is alert and oriented x 3, in no visible distress. HEENT AND NECK: Exam within normal limits. CARDIOVASCULAR SYSTEM: Heart rate is regular in rate and rhythm. S1 and S2 normally audible. LUNGS: Clear to auscultation. ABDOMEN: Soft, nontender. No obvious organomegaly. Bowel sounds are present. EXTREMITIES: Without significant cyanosis or edema. IMPRESSION: 1. The patient with negative urine cultures, recent urinary tract infection, although repeat cultures are negative. The patient is being followed by Infectious Disease specialists and treated with linezolid, meropenem and followed closely in the ICU. 2. Severe leukocytosis with white cell count of 24,000. The patient's stool blood cultures and repeat urine cultures have been negative. The patient is suspected to have urinary tract infection on admission based on urinalysis. 3. Drug rash, apparently from receiving VANCOMYCIN earlier. 4. Acute on chronic kidney failure with acute tubular necrosis, recovering with hydration and normal saline. 5. Advance disability, mental confusion, overall poor health and adult failure to thrive. We are taking bedsore precautions and fall precautions. 6. Recent acute respiratory failure and hypoxemia, resolved. The patient is breathing better. DINA INGRAM MD CM:PNTRANS [id number] DINA INGRAM MD 09/30/172242 interface
--- NOTE | ~2017-09-28 | PR ---
[place], [place] PROGRESS NOTE NAME: [id number] UNIT #: [id number] ROOM: [facility]- DOCTOR: DINA INGRAM MD BIRTHDATE: [birth year] DOS: 10/01/2017 SUBJECTIVE: The patient remains in the ICU, extubated, feeling somewhat better. OBJECTIVE: VITAL SIGNS: Blood pressure 149/66, heart rate of 60 beats per minute, breathing 22 times per minute, temperature 98 degrees Fahrenheit. GENERAL APPEARANCE: The patient is alert and oriented x 3, in no visible distress, except for generalized weakness and lightning up of her macular rash all over. HEENT AND NECK: Exam within normal limits. CARDIOVASCULAR SYSTEM: Heart rate is regular in rate and rhythm. S1 and S2 normally audible. LUNGS: Clear to auscultation. ABDOMEN: Soft, nontender. No obvious organomegaly. Bowel sounds are present. EXTREMITIES: Without significant cyanosis or edema. IMPRESSION AND PLAN: 1. Type 2 diabetes mellitus with severe corticosteroid-induced hyperglycemia. The patient's IV Solu-Medrol has been discontinued and she has been changed to oral prednisone by Dr. Rogel. 2. Acute over chronic kidney failure. BUN and creatinine of 72 and 3.5, being monitored closely and nephrology is following. 3. Stool for Clostridium difficile negative. The patient with sepsis, urinary infection with respiratory failure and kidney failure, being followed by infectious disease specialist. 4. The patient had severe leukocytosis. 5. Poor health, advanced disability, mental confusion and adult failure to thrive. The patient working with physical therapy. 6. Acute respiratory failure and hypoxemia, resolved. The patient is breathing better. DINA INGRAM MD CM:PNTRANS [id number] DINA INGRAM MD 10/02/17 0403 interface
--- NOTE | ~2017-09-28 | DS ---
[place], [place] DISCHARGE SUMMARY NAME: CINDI ARCINIEGA [facility] #: [id number] UNIT #: [id number] ROOM: 503 DOCTOR: DINA INGRAM MD BIRTHDATE: [birth year] DOS: 10/02/2017 DISCHARGE DIAGNOSES: 1. Bilateral pulmonary infiltrates and pleural effusions. 2. Drug rash. 3. Corticosteroid-induced hyperglycemia. 4. Type 2 diabetes mellitus. 5. Acute over chronic kidney failure with acute tubular necrosis. 6. Adult failure to thrive, advanced disability, mental confusion and overall poor health status. 7. Recent acute over chronic respiratory failure, which required mechanical ventilation. 8. Paroxysmal atrial fibrillation. 9. Long-term anticoagulation for atrial fibrillation. 10. Benign essential hypertension. 11. Generalized anxiety disorder. 12. Chronic pain syndrome. 13. Mixed hyperlipidemia. 14. Centrilobular emphysema with history of nicotine smoke dependence. 15. Coronary artery disease of the modoc vessels and stent placement. 16. Tudq-la-xwhulrtg protein-calorie malnutrition. HOSPITAL COURSE: The patient presented to the Emergency Department with increased shortness of breath, hypoxemia, elevated white cell counts and urinary tract infection. The patient was found to be in respiratory failure and intubated and started on mechanical ventilation. The patient was moved to the ICU and closely monitored. Dr. Rogel, the youth services specialist followed her and finally as her breathing improved, she was extubated. The patient still has some bilateral lung infiltrates and pleural effusion as noted by Dr. Rogel. Dr. Rogel has recommended the patient to be transferred to [facility] for continued care. Acute leukocytosis, apparently secondary to pneumonitis and also urinary tract infection with white cell counts elevated to 27,000. The patient was treated with antibiotics and her leukocytosis has improved. Acute over chronic kidney failure considered to be secondary to recent use of IV vancomycin. The patient's kidney functions were monitored daily and the patient was followed by nephrology and she will slowly rehydrate. Paroxysmal atrial fibrillation, for which the patient is chronically anticoagulated with apixaban and heart rates controlled with Cardizem. The patient became bradycardic, so her Cardizem was stopped and instead she was started on Norvasc. Benign essential hypertension, blood pressures were monitored and controlled. Coronary artery disease of the modoc vessels and history of stent placement without any chest pains. Cardiac enzymes were checked to be negative during this admission. LABORATORY DATA: On the day of discharge, patient's Legionella urinary antigen was reported to be negative. BUN and creatinine of 81 and 3.4. Blood sugars ranging between 150 to as high as 445. Stool for C. diff toxin was negative. Blood cultures were negative. DISCHARGE MANAGEMENT: Amlodipine 5 mg a day, prednisone 40 mg daily, MiraLax 17 grams b.i.d., apixaban 5 mg daily, omeprazole 20 mg a day, labetalol 100 mg [place], [place] DISCHARGE SUMMARY NAME: CINDI ARCINIEGA UNIT #: [id number] ROOM: [facility] DOCTOR: JUAN JOSE PHILLIPS,DINA Goodman BIRTHDATE: [birth year] b.i.d., Lipitor 20 mg a day, glipizide 10 mg b.i.d., oxycodone 20 mg b.i.d. p.r.n., fluconazole 100 mg IV daily, lorazepam 1 mg every 8 hours p.r.n., oxygen as needed. DINA INGRAM MD CM:PALMIRA [id number] DINA INGRAM MD 10/03/17 0243 interface
--- NOTE | ~2017-09-28 | PR ---
[place], [place] PROGRESS NOTE [id number] UNIT #: [id number] ROOM: [facility] DOCTOR: VANGIE BOWER MD,DANIEL BIRTHDATE: [birth year] DOS: 10/01/2017 SUBJECTIVE: She has been doing very well at this time, noted awake and alert, started on corticosteroids yesterday. Reduction of the rash was noted, which are noted generalized maculopapular. OBJECTIVE: VITAL SIGNS: Normal temperature, respiratory rate of 19, heart rate 63, blood pressure 127/57 to 156/65. Pulse oxygen saturation noted on 4 liters 96% saturation. HEENT: No acute change. NECK: Supple. CARDIOVASCULAR: S1, S2 audible. LUNGS: No wheeze or crackles at the present time. Decreased breath sounds in the lower lungs bilaterally. ABDOMEN: Soft, nontender. LABORATORY DATA: CBC, white count 11,000, hemoglobin 8.5 and 26.3, platelet count was normal. BMP this morning, BUN 72, creatinine 3.55, glucose 328. IMPRESSION: The patient who has been noted with bilateral pulmonary infiltration with pleural effusions. Allergic drug reactions was also noted with acute kidney injury secondary to vancomycin, all showing gradual improvement or debility was also noted because of ongoing current multiple medical problems. PLAN OF TREATMENT: The patient was noted with hyperglycemia with use of the corticosteroids, which has been managed with additional insulin, continue current dose of Solu-Medrol for the next couple of days prior to reduction in the dose. Obtain physical therapy. The patient might benefit from placement in long-term facility as well for rehabilitation prior to final possible home discharge. DANIEL VENCES MD CM:PNTRANS [id number] DANIEL BOWER MD 10/01/17 1257 interface
--- NOTE | ~2017-09-28 | PR ---
[place], [place] PROGRESS NOTE NAME: CINDI ARCINIEGA UNIT #: [id number] ROOM: [facility] DOCTOR: PATO PHILLIPS,SCARLETT Nicholson BIRTHDATE: [birth year] DOS: 09/29/2017 ADDENDUM Reviewing the chart, labs and cultures, I agree with the above plans as described and follow the patient clinically and adjust accordingly. SCARLETT WHYTE MD CM:PNTRANS [id number] SCARLETT WHYTE MD 09/30/17 0018 interface
[~2017-09-28 05:30] MED LIST changes: +ATIVAN1 MG PO; +CARDIZEM LA240 MG PO; +FLORASTOR250 MG PO; +LABETALOL HCL100 MG PO; +OMEPRAZOLE D/R20 MG PO; +Topicort 0.05%15 GM T
--- NOTE | 2017-09-28 05:39 | NUR ---
PATIENT INTUBATED WITH A 7.5 AND VERIFIED WITH AUSCULTATION AND CO2 DETECTOR. XRAY ORDERED.
--- NOTE | 2017-09-28 05:42 | NUR ---
VENTILATOR SETTINGS 5OO V, 80%, 5 OF PEEP.
[2017-09-28 06:10] LABS: HEMATOCRIT 29.7 % (37.0-47.0); HEMOGLOBIN 9.4 g/dl (12.0-16.0); MEAN CELL VOLUME 90.5 fl (81.0-99.0); MEAN CORPUSCULAR HGB 28.7 pg (27.0-31.0); MEAN CORPUSCULAR HGB CONC 31.6 g/dl (33.0-37.0); MEAN PLATELET VOLUME 10.7 fl (9.6-12.3); PLATELET COUNT AUTOMATED 280 10*3/uL (130-400); RED BLOOD COUNT 3.28 10*6/uL (4.10-5.10); RED CELL DISTRI WIDTH 15.3 % (0-14.5); WHITE BLOOD COUNT 27.2 10*3/uL (4.8-10.8)
--- NOTE | 2017-09-28 06:20 | NUR ---
PROPOFOL GTT INCREASED TO 15MCG PER DR. KING'S REQUEST.
[2017-09-28 06:35] LABS: ACT PARTIAL THROMBO TIME 23.1 SECONDS (20.8-31.5); INTERNATIONAL NORM RATIO 1.2 (2.0-3.5)
[2017-09-28 06:39] LABS: PLATELET SUFFICIENCY NORMAL (NORMAL); TOTAL CELLS COUNTED 100 #CELLS
[2017-09-28 06:42] LABS: ALBUMIN 2.7 gm/dl (3.1-4.5); CREATININE 4.46 mg/dL (0.55-1.02); POTASSIUM 4.5 mmol/L (3.5-5.1); TOTAL PROTEIN 6.1 gm/dL (6.4-8.2)
--- NOTE | 2017-09-28 06:50 | NUR ---
IN ROOM TO SEE PATIENT.
[2017-09-28 06:54] LABS: TROPONIN I 0.057 ng/ml (<0.045)
--- NOTE | 2017-09-28 06:54 | NUR ---
DR. KING NOTIFIED OF CRITICAL TROPONIN.
[2017-09-28 07:01] LABS: BILIRUBIN NEGATIVE (NEGATIVE); BLOOD 2+ (NEGATIVE); CLARITY CLOUDY (CLEAR); COLOR YELLOW (YELLOW); GLUCOSE TRACE (NEGATIVE); KETONE NEGATIVE (NEGATIVE); LEUKO ESTERASE 1+ (NEGATIVE); NITRITE NEGATIVE (NEGATIVE); SPECIFIC GRAVITY 1.025 (1.005-1.030); UROBILINOGEN 0.2 E.U./dl (0.2-1.0)
[2017-09-28 07:16] LABS: BACTERIA 3+; RBC 16-20 rbc/hpf (0-2); WBC 31-40 wbc/hpf (0-5)
--- NOTE | 2017-09-28 07:24 | NUR ---
REPORT FROM MANINDER HUSAIN RN A THIS TIME. VITAL SIGNS REMAIN STABLE. PT STABLE ON VENTILATOR WITHOUT SIGNS OF DISTRESS. PROPOFOL DRIP IS AT 15MCG. AWAITING FINAL DISPOSITION FOR THIS PATIENT. VENT SETTINGS REMAIN UNCHANGED: TV 500, R 12, 80%, 5PEEP.
--- NOTE | 2017-09-28 08:03 | NUR ---
DR. WALLACE AT BEDSIDE SPEAKING WITH FAMILY. PT REMAINS STABLE.
--- NOTE | 2017-09-28 08:07 | NUR ---
OG INSERTED 14 FR. VERIFIED BY AIR BOLUS.
[2017-09-28] MEDS ORDERED: OMEPRAZOLE20 M2 PO (08:31)
--- NOTE | 2017-09-28 08:45 | NUR ---
PROPOFOL INCREASED TO 20 MCG/KG/MIN --- 20.8 ML/HR
--- NOTE | 2017-09-28 09:21 | NUR ---
REPORT TO MAT FOX IN ICU AT THIS TIME. PT STABLE AND READY FOR TRANSPORT TO THE ICU. AWAITING RESPIRATORY TO HELP TRANSPORT PATIENT.
--- NOTE | 2017-09-28 09:40 | NUR ---
A 71, admitted to ICCU, under the services of Dr. JUAN JOSE PHILLIPS,DINA Goodman with a diagnosis of UTI /ACUTE RESP. FAILURE. Chief complaint is FOUND UNRESPONSIVE AT HOME WITH A LOW POX.. Patient arrived via stretcher from ER. Monitor applied. Initial assessment completed. Vital signs taken and recorded. DR. JUAN JOSE PHILLIPS,DINA Goodman notified of admission to the unit. Orders received. See assessment for past medical history, medications and allergies. Patient and/or family oriented to unit. [facility] ICCU visitation policy reviewed. Clothing/patient valuable form completed. LINDSAY PATINO
[2017-09-28 10:53] LABS: ABG BASE EXCESS 1.3 mmol/L (-2.0-2.0); ABG HCO3 25.4 mmol/l (22-26); ARTERIAL BLOOD GAS PCO2 38.9 mmHg (35-45); ARTERIAL BLOOD GAS PH 7.426 (7.35-7.45); ARTERIAL BLOOD GAS PO2 74.2 mmHg (80-90)
--- NOTE | 2017-09-28 11:09 | NUR ---
DR VENCES MADE AWARE OF NEW CONSULT ORDER.
--- NOTE | 2017-09-28 13:21 | NUR ---
DR CONTEH ANSWERING SERVICE MADE AWARE OF NEW CONSULT ORDER.
--- NOTE | 2017-09-28 13:36 | NUR ---
DR PETTIT'S ANSWERING SERVICE MADE AWARE OF NEW CONSULT ORDER.
--- NOTE | 2017-09-28 13:39 | NUR ---
DR PETTIT RETURNED CALL AND MADE AWARE OF NEW CONSULT ORDER.
--- NOTE | 2017-09-28 13:54 | NUR ---
DR HELM RETURNED CALL AND WAS MADE AWARE OF NEW CONSULT ORDER. NEW ORDERS RECEVIED.
--- NOTE | 2017-09-28 14:09 | NUR ---
LINDA JONES NP WITH INFECTIONS DISEASE DR IN TO SEE PT.
--- NOTE | 2017-09-28 15:54 | NUR ---
DR PETTIT IN TO SEE PT.
[2017-09-29] VITALS: BP 168/71
[2017-09-29 04:00] VITALS: BP 163/75
--- NOTE | 2017-09-29 04:14 | NUR ---
DR WIGGINS NOTIFIED OF BP 160-170'S AND RECTAL TEMP 96.7. NO NEW ORDERS AT THIS TIME.
[2017-09-29 06:03] LABS: BASO % 0.1 % (0.0-1.0); EOS # 0.6 10*3/uL (0.0-0.4); EOS % 3.9 % (1.0-4.0); HEMATOCRIT 29.1 % (37.0-47.0); HEMOGLOBIN 9.4 g/dl (12.0-16.0); LYMPH % 7.2 % (27.0-41.0); MEAN CORPUSCULAR HGB 28.7 pg (27.0-31.0); MEAN CORPUSCULAR HGB CONC 32.3 g/dl (33.0-37.0); MONO # 0.5 10*3/uL (0.1-1.0); MONO % 3.5 % (3.0-9.0); NEUT % 83.4 % (47.0-73.0); PLATELET COUNT AUTOMATED 235 10*3/uL (130-400); RED BLOOD COUNT 3.27 10*6/uL (4.10-5.10); WHITE BLOOD COUNT 14.4 10*3/uL (4.8-10.8)
[2017-09-29 06:05] LABS: CREATININE 3.89 mg/dL (0.55-1.02); POTASSIUM 4.5 mmol/L (3.5-5.1)
[2017-09-29 08:00] VITALS: BP 154/61
--- NOTE | 2017-09-29 09:42 | NUR ---
0800 Propofol titrated down, opens eyes to voice. Re-oriented to time and place. Repositioned . oral care given. Dependent edema noted w/ ring to left ring finger extremely tight. Ring cutter was utilized for removal. IV to left hand removed . Bilateral arms elevated on pillows.
--- NOTE | 2017-09-29 09:48 | NUR ---
RT in and ABG obtained and sent to lab on ice.
[2017-09-29 09:53] LABS: ABG BASE EXCESS -0.6 mmol/L (-2.0-2.0); ABG O2 SATURATION 99.5 % (95-97); ARTERIAL BLOOD GAS PCO2 29.4 mmHg (35-45); ARTERIAL BLOOD GAS PH 7.486 (7.35-7.45)
--- NOTE | 2017-09-29 10:34 | NUR ---
Spouse in to visit. Informed that ring was cut off, Spouse to take ring home. AM med of cardizem cd not given as med is non crushable.
[2017-09-29 11:55] VITALS: BP 174/94
[2017-09-29 13:44] LABS: ABG BASE EXCESS -0.9 mmol/L (-2.0-2.0); ABG HCO3 22.7 mmol/l (22-26); ABG O2 SATURATION 97.8 % (95-97); ARTERIAL BLOOD GAS PCO2 34.6 mmHg (35-45); ARTERIAL BLOOD GAS PH 7.43 (7.35-7.45); ARTERIAL BLOOD GAS PO2 94.9 mmHg (80-90)
--- NOTE | 2017-09-29 14:10 | NUR ---
Tolerated c-pap well , ABG per Rt . called to Dr. Rogel , Order for extubation recieved. EXtubated per RT , NGT removed. Resting quietly at this time. January Henrry NCP in . No new orders. Family in to visit.
[2017-09-29 16:00] VITALS: BP 175/73
--- NOTE | 2017-09-29 16:45 | NUR ---
Repositioned to side. medicated for constipation. Dr. Miguel in.
--- NOTE | 2017-09-29 18:15 | NUR ---
Laxitive effective for small amt hard formed stool . Sent c-diff. Requested pain med states she gets oxycontin. Informed that she has no pain med ordered at this time. Stated OK. Declined clear liquid supper. took po meds w/ applesauce.
[2017-09-29 20:00] VITALS: BP 165/76
[2017-09-30] VITALS (7 sets, daily range): BP systolic 133–188; BP diastolic 62–81
[2017-09-30 06:05] LABS: CREATININE 3.72 mg/dL (0.55-1.02); HEMATOCRIT 27.4 % (37.0-47.0); MEAN CORPUSCULAR HGB 29.2 pg (27.0-31.0); MEAN CORPUSCULAR HGB CONC 32.8 g/dl (33.0-37.0); MEAN PLATELET VOLUME 11.1 fl (9.6-12.3); PLATELET COUNT AUTOMATED 233 10*3/uL (130-400); RED BLOOD COUNT 3.08 10*6/uL (4.10-5.10); RED CELL DISTRI WIDTH 15.3 % (0-14.5); WHITE BLOOD COUNT 24.3 10*3/uL (4.8-10.8)
--- NOTE | 2017-09-30 06:15 | NUR ---
PT RESTING COMFORTABLY. ATIVAN EFFECTIVE FOR ANXIETY. WILL MONITOR. PEREZ ESTRELLA RN
[2017-09-30 07:12] LABS: TOTAL CELLS COUNTED 100 #CELLS
[2017-09-30 07:13] LABS: PLATELET SUFFICIENCY NORMAL (NORMAL)
--- NOTE | 2017-09-30 07:19 | NUR ---
Shift chart check completed.24 HR chart check completed.
--- NOTE | 2017-09-30 09:41 | NUR ---
PHYSICAL THERAPY PATIENT WITH VISITORS AT THIS TIME. WILL ATTEMPT LATER THIS DATE. THANK YOU FOR THIS REFERRAL. ROSY DENG,PT
--- NOTE | 2017-09-30 09:41 | NUR ---
DC PRODUCTION DRILLING MACHINE OPERATOR WILL DISCUSS DC PLAN.
--- NOTE | 2017-09-30 09:55 | NUR ---
THIS AM PT HAS BEEN INTERMITTENTLY CRYING WITH RLQ/BACK DISCOMFORT. I HAVE OFFERED PRUNE JUICE AND SHE'S DECLINED. HER DAUGHTER AND ARE HERE. PT IS OUT OF BED IN RECLINER CHAIR. FLAT AFFECT.
--- NOTE | 2017-09-30 10:58 | NUR ---
Discussed discharge plans with patients , Joseph. He stated when patient is well enough for discharge he will be taking her home, he will not be sending her back to [facility] or any other jail.
--- NOTE | 2017-09-30 11:09 | NUR ---
PT GIVEN MILK OF MAGNESIA FOR C/O CONSTIPATION.
--- NOTE | 2017-09-30 11:28 | NUR ---
PHYSICAL THERAPY PAtient adamantly refuses PT this date. Attempt encouragment, offer patient to just stand at wh walker and sit immediately back down if that was her desire as she was sitting in recliner- "NO". "I am tooo tired." Nurse educated. Will attempt at a later date. Thank you for this referral. Ai Lang,PT
--- NOTE | 2017-09-30 12:30 | NUR ---
AT 1140 PT HAD SMALL EMESIS OF CHRISTINA PINK LIQUID (HAD CHRISTINA JELLO AND MILK OF MAG EARLIER). SHE'S HAD NO FURTHER EMESIS, AND REMAINS DOZING IN HER RECLINER CHAIR. DR VENCES VISITED EARLIER, CHECKED HER LUNGS USING THE PORTABLE ULTRASOUND MACHINE. NO INTERVENTIONS ORDERED.
--- NOTE | 2017-09-30 13:32 | NUR ---
PHYSICAL THERAPY PAtient evaluated in ICCU, full evaluation to follow. Continue with PT as per plan of care with fall, acute debilty, just off vent and extensive/prolonged medical illness and hospitaliztion precuatons, MAy require SNF in order to return home at (I) PL. PAient is high complexity via chart review, tests and evaluaion: [id number]. Thank you for this referral. Ai Fabian,PT
--- NOTE | 2017-09-30 16:07 | NUR ---
AT 1457 PT GIVEN A DULCOLAX SUPPOSITORY BECAUSE PT WOULDN'T DRINK THE FIRST DOSE OF MIRALAX AND WAS STILL C/O CONSTIPATION. AT 1530 SHE WAS ASSISTED TO [facility]. HER DAUGHTER WAS IN THE ROOM WITH HER. AT 1535 DAUGHTER OPENED DOOR AND YELLED FOR HELP. SHE SAID HER MOTHER "STOOD UP TO LOOK IN THE BSC AND LOST HER BALANCE, WENT TO HER KNEES AND CAUGHT HERSELF ON THE FOOT OF THE BED". NO OPEN AREAS, NO NEW AREAS OF PAIN. PT WAS ABLE TO BE ASSISTED TO STAND AND SHE CRAWLED BACK INTO BED. SHE HAD 6-7 SMALL HARD STOOLS IN THE BSC.
[2017-09-30] MEDS ORDERED: OXYCONTIN20 M1 PO (18:40)
--- NOTE | 2017-09-30 18:57 | NUR ---
PT ATE ENTIRE BOWL OF CHICKEN NOODLE SOUP. DR INGRAM HAS VISTED. HE'S AWARE THAT PT IS ASKING FOR "MY PAIN MEDICINE".
[2017-10-01] VITALS: BP 142/60
[2017-10-01 04:00] VITALS: BP 156/65
[2017-10-01 06:06] LABS: BASO % 0.1 % (0.0-1.0); EOS # 0.1 10*3/uL (0.0-0.4); EOS % 1.3 % (1.0-4.0); HEMATOCRIT 26.3 % (37.0-47.0); HEMOGLOBIN 8.5 g/dl (12.0-16.0); LYMPH # 1.4 10*3/uL (1.3-4.4); LYMPH % 12.9 % (27.0-41.0); MEAN CELL VOLUME 88.6 fl (81.0-99.0); MEAN CORPUSCULAR HGB 28.6 pg (27.0-31.0); MEAN CORPUSCULAR HGB CONC 32.3 g/dl (33.0-37.0); MEAN PLATELET VOLUME 11.5 fl (9.6-12.3); MONO # 0.2 10*3/uL (0.1-1.0); MONO % 1.5 % (3.0-9.0); NEUT # 9.1 10*3/uL (2.3-7.9); NEUT % 82.7 % (47.0-73.0); PLATELET COUNT AUTOMATED 204 10*3/uL (130-400); RED BLOOD COUNT 2.97 10*6/uL (4.10-5.10); RED CELL DISTRI WIDTH 15.6 % (0-14.5)
[2017-10-01 06:10] LABS: POTASSIUM 4.9 mmol/L (3.5-5.1)
[2017-10-01 06:12] LABS: CREATININE 3.55 mg/dL (0.55-1.02); PHOSPHOROUS 5.2 mg/dL (2.5-4.9)
--- NOTE | 2017-10-01 07:35 | NUR ---
Shift chart check completed.24 HR chart check completed.
[2017-10-01 08:00] VITALS: BP 127/57
--- NOTE | 2017-10-01 10:00 | NUR ---
PT WAS MEDICATED WITH OXYCONTIN AT 0859 AND THIS HAS BEEN EFFECTIVE. SHE'S MUCH MORE ALERT TODAY THAN YESTERDAY. HER RASH IS MUCH LESS THAN YESTERDAY ALSO. KINZA PATENT YELLOW URINE.
[2017-10-01 12:00] VITALS: BP 161/63
--- NOTE | 2017-10-01 14:00 | NUR ---
PT HAD PO ATIVAN AT 1255 FOR "ANXIETY" AND THIS HAS BEEN EFFECTIVE.
[2017-10-01 15:06] LABS: LEGIONELLA URINARY ANTIGEN Negative (Negative)
--- NOTE | 2017-10-01 15:12 | NUR ---
PHYSICAL THERAPY Patient seen this pm 1:1 for therapy visit with continuous 02-4L via LA and reports bouts of sudden onset of dizziness if standing too fast. Patient transfers supine to sit EOB with Mod A x 1, tolerating 5 minutes EOB sit without c/o of light headedness. Patient then able to transfer sit to stand, SAP BW BI DEVELOPER/Min A x 1 and tolerated 2 minutes static stand, SAP BW BI DEVELOPER/CGA, Fair posture and no c/o dizziness before increased fatigue. Patient's vital signs remained WFL's throughout treatment and returned to supine in bed with call light, telephone and tray table. Will continue per POC as tolerated, total treatment time 16 minutes. Dayne De Leon, SOLUTION COORDINATOR
[2017-10-01 16:00] VITALS: BP 149/66
--- NOTE | 2017-10-01 17:00 | NUR ---
PT'S GLUCOMETER WAS GREATER THAN 445. STAT REFLEX WAS [id number]. COVERAGE GIVEN PER SLIDING SCALE. DR INGRAM HAS VISITED AND IS AWARE.
[2017-10-01 20:00] VITALS: BP 152/53
--- NOTE | 2017-10-01 23:58 | NUR ---
PT MEDICATED FOR CH BACK NECK PAIN WITH OXYCODONE PRN @ 2100. UPON FURTHER ASSESSMENT PT STATES MEDICATION EFFECTIVE AT THIS TIME. PT RESTING COMFORTABLY BUT STATES CANT SLEEP AT THIS TIME REQUEST PO ATIVAN PRN. WILL MONITOR EFFECTIVENESS
[2017-10-02] VITALS: BP 156/67
[2017-10-02 04:00] VITALS: BP 144/62
--- NOTE | 2017-10-02 05:00 | NUR ---
PT RESTING IN BED. NO S AND S OF ACUTE DISTRESS NOTED AT THIS TIME. RESPS EASY AND UNLABORED. WILL CONTINUE TO MONITOR.
[2017-10-02 06:07] LABS: ALBUMIN 2.7 gm/dl (3.1-4.5); CREATININE 3.48 mg/dL (0.55-1.02); POTASSIUM 4.3 mmol/L (3.5-5.1)
[2017-10-02 06:08] LABS: PHOSPHOROUS 4.7 mg/dL (2.5-4.9)
[2017-10-02 08:00] VITALS: BP 152/66
--- NOTE | 2017-10-02 09:23 | NUR ---
Awake and alert. Requested pain med given.
--- NOTE | 2017-10-02 10:00 | NUR ---
PHYSICAL THERAPY PATIENT WAS EATING BREAKFAST AT 9;07 AM. WILL CHECK BACK LATER. TAHIR PITTS HEARING AID ASSEMBLY SUPERVISOR
--- NOTE | 2017-10-02 10:01 | NUR ---
PHYSICAL THERAPY Patient was visiting with her and wanted therapy to come back afterwhile. Will check back later. TAHIR PITTS VENDING MACHINE REFILLER
--- NOTE | 2017-10-02 11:00 | NUR ---
PHYSICAL THERAPY Patient presented to therapy in seated position in bedside chair.Patient performed seated ther ex x 20 reps each in all planes of movement. Patient is to be transfered to [facility] facility in [place] today. No walker available so patient did not stand or ambulate. TAHIR PITTS APPAREL EMBROIDERY DIGITIZER
--- NOTE | 2017-10-02 11:07 | NUR ---
discussed with patient and (hpoa) about patient going to [facility] for longer treatment/recovery time. At first patients was against this due to the distance for travel. Patients then came back to me and stated he thinks this would be a good idea as he feels she needs more time in an acute setting. Brianna Hilliard from [facility] was here in the hospital and spoke with answering all of his questions, he is agreeable to patient going today if necessary. Patient clincals printed and given to Brianna/juana. Waiting for patient to be reviewed and accepted. Will follow
--- NOTE | 2017-10-02 11:17 | NUR ---
Took breakfast well then up to chair. in to visit. requested conference w/ counseling case manager . Desiree in to discuss discharge plan w/ pt. and spouse.
[2017-10-02 12:00] VITALS: BP 134/43
--- NOTE | 2017-10-02 12:42 | NUR ---
Dr. Miguel was notified of bradycardia and holding of diltazem. orders were recieved.
--- NOTE | 2017-10-02 13:53 | NUR ---
Patient has been accepted to [facility] and can go when ready for discharge.
[2017-10-02 16:00] VITALS: BP 174/57
--- NOTE | 2017-10-02 18:18 | NUR ---
Discharge instructions reviewed with patient/family. Patient receptive and verbalizes understanding. Follow-up care arranged. Written instructions given to patient/family. JASPAL GEIGER
--- NOTE | 2017-10-03 07:59 | NUR ---
PHYSICAL THERAPY CO-SIGN I approve of the Phyical Therapy notes written above. ROSY DENG PT
--- NOTE | 2017-10-03 12:53 | NUR ---
Received call at 12:00 noon from Brianna at [facility] stating patient was to be discharged to them, but the patient never arrived to their facility. After reviewing discharge order and instructions that patient was to be discharged to [facility] and knowing patient wasn't there I called patient home and spoke to her , Joseph. I asked what had happened and why patient didn't go to [facility], he stated "I don't know". "I wasn't there when she was discharged, my daughter was and according to her the nurse just came in and told her she was discharged." I asked how patient was doing and if he still wanted her to go to [facility]. He stated "yes, she is not doing well and when asked how she was breathing he said "not very good". He also stated he would not be able to drive her there, someone would have to pick her up and take her. I told him I would call the ambulance and see what I could do. [facility], they stated they are only allowed to transport to the nearest facility, they couldn't transport her to [facility]. I called back, gave him the emergency number for [facility] which is close to his home and told him to call them, explain she was discharged yesterday from [facility] and she is having trouble breathing and have her brought back to the ER. From there I will arrange a transfer to [facility] if she is stable enough to be transferred. Patients agreed. I went down to ER and spoke with resident explaining the situation. He stated he would pass the information along to the ER DR. Del Toro and if patient was stable enough they would arrange transport to [facility].
--- NOTE | 2017-10-03 13:27 | NUR ---
Called patients home again and spoke to , he stated he went to call the ambulance and his started "throwing a trantrum" stated she did not want to go she has had enough of hospitals and she is not going. He said he didn't know what to do, he feels as though he can't force her. He stated he needed to find someone to get her oxygen and i explained she can't get any until she qualifies and in order to do that she would have to return to the hospital. He said he was going to call Dr. Hobbs and speak with her.
--- NOTE | 2017-10-03 14:11 | NUR ---
Attempted to call daughter to discuss discharge yesterday since she was present at discharge. Unable to contact, left message for return call.
== END 2017-10-02 18:18 | disposition home or self-care (01) | DRG 871 ==
LOC: ED 05:30 → EDHOLD 08:19 → ICCU 08:19 → 5E 10-02 14:34
PROVIDERS: Internal Medicine; Internal Medicine Critical Care Medicine; Internal Medicine Infectious Disease; Student in an Organized Health Care Education/Training Program; ADMIT Internal Medicine
PROC: 5A1945Z Respiratory Ventilation, 24-96 Consecutive Hours (ICD-10-PCS; principal; 2017-09-28)
PROC: 0BH17EZ Insertion of Endotracheal Airway into Trachea, Via Natural or Artificial Opening (ICD-10-PCS; principal; 2017-09-28)
DX: A41.9 Sepsis, unspecified organism (principal); N17.0 Acute kidney failure with tubular necrosis; J96.21 Acute and chronic respiratory failure with hypoxia; G93.41 Metabolic encephalopathy; E44.0 Moderate protein-calorie malnutrition; J18.9 Pneumonia, unspecified organism; J43.2 Centrilobular emphysema; E11.22 Type 2 diabetes mellitus with diabetic chronic kidney disease; N10 Acute pyelonephritis; N39.0 Urinary tract infection, site not specified; I48.0 Paroxysmal atrial fibrillation; E11.65 Type 2 diabetes mellitus with hyperglycemia; E83.39 Other disorders of phosphorus metabolism; J84.10 Pulmonary fibrosis, unspecified; R65.20 Severe sepsis without septic shock; F10.129 Alcohol abuse with intoxication, unspecified; I25.10 Atherosclerotic heart disease of native coronary artery without angina pectoris; M54.9 Dorsalgia, unspecified; K21.9 Gastro-esophageal reflux disease without esophagitis; E78.2 Mixed hyperlipidemia; E66.3 Overweight; R62.7 Adult failure to thrive; G89.4 Chronic pain syndrome; N18.9 Chronic kidney disease, unspecified; F17.210 Nicotine dependence, cigarettes, uncomplicated; E78.00 Pure hypercholesterolemia, unspecified; E83.41 Hypermagnesemia; F41.1 Generalized anxiety disorder; E87.70 Fluid overload, unspecified; Z79.4 Long term (current) use of insulin; T36.8X5S Adverse effect of other systemic antibiotics, sequela; I25.2 Old myocardial infarction; Z88.2 Allergy status to sulfonamides; Z86.718 Personal history of other venous thrombosis and embolism; Z88.1 Allergy status to other antibiotic agents; Z91.041 Radiographic dye allergy status; Z91.013 Allergy to seafood; Z79.01 Long term (current) use of anticoagulants; Z68.28 Body mass index [BMI] 28.0-28.9, adult; I12.9 Hypertensive chronic kidney disease with stage 1 through stage 4 chronic kidney disease, or unspecified chronic kidney disease

== ENCOUNTER 2017-10-03 22:20 | Inpatient (IN) | payer MEDICARE ==
[~2017-10-03] VITALS: Ht 157.5 cm; Wt 72.4 kg
--- NOTE | ~2017-10-03 | CON ---
[place], [place] REPORT OF CONSULTATION NAME: [facility]GA [id number] UNIT #: [id number] [place] [facility] [place]CTOR: VANGIE BOWER MD,DANIEL BIRTHDATE: [birth year] DOS: 10/04/2017 PULMONARY CONSULTATION EVALUATION CONSULTATION REQUESTED BY: Dr. Miguel. REASON FOR CONSULTATION: To assess the patient with current ongoing acute respiratory problem with pleural effusion and others. HISTORY OF PRESENT ILLNESS: This is a 71-year-old white female who has been admitted in this hospital a couple of times. The patient has been noted with progressive resolution of the acute kidney injury related to vancomycin, has had bilateral pulmonary infiltration and pleural effusions. She was supposedly to be discharged to the [facility], but the patient was discharged by the nurse to the home without any oxygen and other medications. She has been brought back to the hospital on 10/03/2017 at 11:24 p.m. The patient has been assessed in the hospital. As the EMS arrived at the patient's home, her pulse oxygen saturation recorded as 77% on room air. She was started on 100% nonrebreather mask and the oxygen saturation recorded 94%. She has been brought to the hospital, also given breathing treatment as well en route with the DuoNeb. She has been currently admitted to the Intensive Care Unit. The patient was not complaining of any symptoms of shortness of breath at this time. Denies symptoms of chest pain. Denies symptoms of hemoptysis. She does not have any symptoms of cough, general weakness, fatigue was noted. The patient was assessed in the Emergency Room. She was noted with a decreased responsiveness and unable to provide me any history. The chest x-ray was done on this patient on 10/03/2017 shows evidence of pleural fluid with patchy infiltration of the lungs. REVIEW OF SYSTEMS: CONSTITUTIONAL: General weakness, fatigue reported without symptoms of fever or chills. EYES: Denies any burning, redness, or tenderness. EARS, NOSE, THROAT: Denies sore throat, hoarseness, otalgia, postnasal drainage, or epistaxis. CARDIOVASCULAR: No anginal pain, edema, pain of the lower extremity. GASTROINTESTINAL: No dysphagia, nausea, vomiting, diarrhea, abdominal pain, hematemesis, melena, or hematochezia. SKIN: Denies lesions or rashes. The rashes which has been noted on the skin seemed to be resolved significantly. CENTRAL NERVOUS SYSTEM: General weakness and fatigue were noted without any focal neurologic deficit. Mental status has been currently improved significantly. Remaining systems were reviewed with this patient, they were noted all negative. PAST MEDICAL HISTORY: 1. Record review for patient admission in this hospital on 09/28/2017 until 10/02/2017 managed for the patient acute respiratory failure requiring intubation and mechanical ventilation, short of successful liberation from [place], [place] REPORT OF CONSULTATION NAME: CINDI ARCINIEGA UNIT #: [id number] [place] [facility] [place] DOCTOR: VANGIE BOWER MD,DANIEL BIRTHDATE: [birth year] mechanical ventilator after 24 hours with resolving ATN, interstitial nephritis, acute respiratory failure, and also noted with small to moderate bilateral pleural effusions. 2. Past history of methicillin-resistant Staphylococcus aureus bacteremia, which was noted about 6 weeks ago, resolved. The source was unknown, may be related to the right lower lobe pneumonia. 3. Hypercholesterolemia. 4. Bilateral pulmonary infiltration with most likely an allergic drug injury to the lungs secondary to vancomycin, resolving with use of corticosteroid. 5. Skin rash, related to the allergic drug reaction, resolving with use of corticosteroid. 6. Hypercholesterolemia. 7. Generalized anxiety disorder. 8. Essential hypertension. 9. Deep venous thrombosis history of the lower extremities. 10. Hyperlipidemia. 11. Possibility of transient ischemic attack with unresponsive noted during previous hospitalization. 12. Atrial fibrillation, on anticoagulation with Eliquis. 13. Anemia of chronic disease. PAST SURGICAL HISTORY: 1. Cardiac catheterization and coronary artery stent insertion. 2. Intubation and mechanical ventilation on 09/28/2017. SOCIAL HISTORY: The patient is , has 5 children living at home. There were no history of alcohol use or illicit drug use. Tobacco use was known as a pack of cigarettes per day since teenager with that has been discontinued in the past. FAMILY HISTORY: The patient was noted noncontributory. MEDICATIONS: The current administered medication noted use of glipizide, omeprazole, labetalol, Lipitor, Eliquis, Norvasc, DuoNeb and other p.r.n. medications. ALLERGIES: DRUG ALLERGY HISTORY WAS NOTED ; 1. IVP DYE. 2. VANCOMYCIN. 3. SULFA DRUGS. 4. VICODIN. PHYSICAL EXAMINATION: GENERAL: A 71-year-old female who has been currently noted to be awake and alert at this time of assessment. Height of 5 feet 2 inches, weight 159 pounds, BMI 28.2. VITAL SIGNS: Recorded shows temperature noted normal since admission. The respiratory recorded 16-20, heart rate ranging between 75-72, blood pressure 152/70-163/68. Pulse oxygen saturation noted as 98% with the BiPAP supplementation. [place], [place] REPORT OF CONSULTATION NAME: CINDI ARCINIEGA UNIT #: [id number] [place]: [facility] [place] DOCTOR: VANGIE BOWER MD,DANIEL BIRTHDATE: [birth year] HEENT: Examination shows head was atraumatic. Eyes nonicterus. NECK: Supple. CARDIOVASCULAR: S1, S2 audible. LUNGS: The patient was noted without any wheeze or crackles at present time. ABDOMEN: Soft, nontender. EXTREMITIES: The patient was noted with minimal edema. LABORATORY DATA: The CMP done on 10/03/2017, BUN 72, creatinine 2.84, glucose 248. Lactic acid 2.4 and then followup 2.0 related to the hypoxia. CBC: WBC count 21.6, hemoglobin 8.6 and hematocrit 26.5, platelet count 211,000. IMAGING: Chest x-ray was done yesterday one view in the Emergency Room on 10/03/2017 shows pleural fluid seemed to be somewhat decreased compared with the previous chest x-ray. Small infiltration was noted that appeared to be increased in the right lower lung. IMPRESSION: 1. The patient has been currently noted with acute hypoxic respiratory failure as a result of recurrence of the current pulmonary infiltration related to the vancomycin-related drug toxicity. 2. Bilateral pleural fluid combination with acute kidney injury as well. 3. Leukocytosis effect of the corticosteroids as well. There is no clinical evidence of acute pneumonia at this time. All the previous culture was noted as negative. 4. Unresponsive secondary to acute hypoxic respiratory failure was also considered. 5. Overall severe debility and muscle deconditioning. 6. Progressive and gradual resolution of acute kidney injury with reduction of the BUN and creatinine was noted as compared to previous labs. PLAN OF TREATMENT: DVT prophylaxis will be continued. Other supportive therapy, plan of management. Usual care. Most of the home medication had been resumed by Dr. Miguel. The Eliquis was adjusted to the kidney functions. The prednisone was also continued 40 mg starting from today. The patient could be transferred to long-term acute care facility for further medical management. DANIEL VENCES MD CM:CONSTR:REPORT OF CONSULTATION 1329 10/04/17 1732 interface
--- NOTE | ~2017-10-03 | WRIGHTHP ---
[place], [place] PATIENT HISTORY AND PHYSICAL EXAM NAME: CINDI ARCINIEGA [facility] #: [id number] UNIT #: [id number] ROOM: [facility] DOCTOR: DINA INGRAM MD BIRTHDATE: [birth year] DOS: 10/03/2017 HISTORY OF PRESENT ILLNESS: 1. The patient is a 71-year-old female with a past medical history of bilateral pulmonary infiltrates and effusions. 2. Recent drug rash. 3. Corticosteroid-induced hyperglycemia. 4. Type 2 diabetes mellitus. 5. Acute over chronic kidney failure with acute tubular necrosis. 6. Adult failure to thrive with advanced disability, mental confusion and overall poor health status. 7. Chronic respiratory failure for which she required mechanical ventilation recently and right now she is on BiPAP. 8. Paroxysmal atrial fibrillation. 9. Long-term anticoagulation for atrial fibrillation. 10. Benign essential hypertension. 11. Generalized anxiety disorder. 12. Chronic pain syndrome. 13. Mixed hyperlipidemia. 14. Centrilobular emphysema with oxygen dependence and nicotine smoke dependence. 15. Coronary artery disease of the ione vessels with stent placement. 16. Emea-zc-quviqwps protein-calorie malnutrition. The patient recently discharged from the hospital and then brought back for admission to be transferred to [facility], which was initially planned. Situation discussed with patient's . The patient herself wakes up and is able to communicate, but she is pleasantly confused. No increasing shortness of breath, no chest pain, no GI or urinary symptoms. REVIEW OF SYSTEMS: LUNGS: No increasing shortness of breath or wheezing. GASTROINTESTINAL: No nausea, vomiting, diarrhea or constipation. CARDIOVASCULAR: No chest pains or palpitations. SOCIAL HISTORY: . History of nicotine smoke dependence. Denies any alcohol or drug abuse. MEDICATIONS: Amlodipine, prednisone, MiraLax, apixaban, omeprazole, labetalol, Lipitor, glipizide, oxycodone, Diflucan, lorazepam, oxygen. FAMILY HISTORY: Noncontributory. ALLERGIES: Known allergies to IODINE, SULFUR, HYDROCODONE, KEFLEX, VANCOMYCIN, SHELLFISH. PHYSICAL EXAMINATION: GENERAL APPEARANCE: The patient does wake up, but pleasantly confused, in no visible distress except for generalized weakness. HEENT AND NECK: Extraocular movements are intact. Sclerae are anicteric. Oral [place], [place] PATIENT HISTORY AND PHYSICAL EXAM NAME: [facility] [id number] UNIT #: [id number] ROOM: [facility] DOCTOR: DINA INGRAM MD BIRTHDATE: [birth year] mucosa is moist and clean. No obvious facial weakness. Neck is supple without any lymphadenopathy. No thyromegaly. No JVD. No carotid arterial bruits. LUNGS: Clear to auscultation. No wheezing. No rhonchi. CARDIOVASCULAR SYSTEM: Heart rate is regular in rate and rhythm. S1 and S2 normally audible. No significant murmur or any other abnormal cardiac sounds. ABDOMEN: Soft, nontender. No obvious organomegaly. Bowel sounds are present. No obvious herniation. EXTREMITIES: Without significant cyanosis or edema. Warm to touch. CENTRAL NERVOUS SYSTEM: Alert and oriented x 3. Cranial nerves II-XII are intact. Speech is normal. The patient is able to move all extremities. Normal muscle strength. Deep tendon reflexes are equal on both sides. Plantars were downgoing. IMPRESSION AND PLAN: 1. The patient with bilateral lung infiltrates and pleural effusion is being transferred to [facility] for continued care under Dr. Rogel, the quiller operator, who has been taking care of her all this time. The patient is presently on BiPAP and oxygen to maintain saturation of 90-96%. 2. Persistent drug rash, which is slowly improving with corticosteroids. 3. Corticosteroid-induced hyperglycemia being followed, treated and controlled. 4. Type 2 diabetes mellitus with hyperglycemia. Blood sugars are being treated. 5. Acute over chronic kidney disease and acute tubular necrosis. The kidney function is being monitored and treated with hydration. 6. Advance adult failure to thrive, mental confusion and advanced disability. I have a good discussion with the patient's and her other family on multiple occasions and I have recommended a DNR comfort care code status because of her advanced and chronic failure to thrive. 7. Paroxysmal atrial fibrillation in patient with controlled heart rates. The patient is anticoagulated appropriately. 8. Benign essential hypertension with controlled blood pressures. Blood pressure will be monitored and treated. 9. Centrilobular emphysema with chronic respiratory failure, treated with DuoNebs, corticosteroids, oxygen and ventilation. 10. Coronary artery disease of ione vessels without chest pains. 11. Mild to moderate protein-calorie malnutrition. The patient is followed by dietary. DISCHARGE MANAGEMENT: Continue BiPAP. Admit with Dr. Rogel, amlodipine 5 mg a day, prednisone 40 mg a day, MiraLax 17 grams b.i.d., apixaban 5 mg daily, omeprazole 20 mg a day, labetalol 100 mg b.i.d., Lipitor 20 mg a day, glipizide 10 mg b.i.d., oxycodone 20 mg b.i.d. as needed for pain, fluconazole 100 mg IV daily, lorazepam 1 mg every 8 hours, oxygen as needed by titration. [place], [place] PATIENT HISTORY AND PHYSICAL EXAM NAME: CINDI ARCINIEGA [place] UNIT #: [id number] ROOM: [facility] DOCTOR: DINA INGRAM MD BIRTHDATE: [birth year] DINA INGRAM MD CM:HISPHYS:PATIENT HISTORY AND PHYSICAL EXAMINATION 1328 [id number] DINA INGRAM MD 10/04/17 1529 interface
[2017-10-03 22:20] VITALS: BP 197/81
[~2017-10-03 22:20] MED LIST changes: +OMEPRAZOLE20 M2 PO
--- NOTE | 2017-10-03 22:28 | NUR ---
BIPAP SETTINGS 12/6 90% RATE OF 8.
--- NOTE | 2017-10-03 22:32 | NUR ---
BIPAP TURNED DOWN TO 80% BY RESPIRATORY THERAPY.
[2017-10-03 22:48] LABS: HEMATOCRIT 26.5 % (37.0-47.0); HEMOGLOBIN 8.6 g/dl (12.0-16.0); MEAN CELL VOLUME 89.2 fl (81.0-99.0); MEAN CORPUSCULAR HGB CONC 32.5 g/dl (33.0-37.0); MEAN PLATELET VOLUME 11.2 fl (9.6-12.3); PLATELET COUNT AUTOMATED 211 10*3/uL (130-400); RED BLOOD COUNT 2.97 10*6/uL (4.10-5.10); RED CELL DISTRI WIDTH 15.9 % (0-14.5); WHITE BLOOD COUNT 21.6 10*3/uL (4.8-10.8)
[2017-10-03 22:57] VITALS: BP 184/66
[2017-10-03 22:59] VITALS: BP 164/62
[2017-10-03 23:06] LABS: ALBUMIN 2.9 gm/dl (3.1-4.5); CREATININE 2.84 mg/dL (0.55-1.02); POTASSIUM 4.1 mmol/L (3.5-5.1); TOTAL PROTEIN 6.4 gm/dL (6.4-8.2); TROPONIN I 0.018 ng/ml (<0.045)
[2017-10-03 23:08] LABS: PLATELET SUFFICIENCY NORMAL (NORMAL); POLYCHROMASIA SLIGHT; TOTAL CELLS COUNTED 100 #CELLS
[2017-10-03 23:16] VITALS: BP 153/69
[2017-10-03 23:31] VITALS: BP 163/68
--- NOTE | 2017-10-03 23:57 | NUR ---
NO ONE AVAILABLE TO TAKE REPORT AT THIS TIME.
--- NOTE | 2017-10-04 00:36 | NUR ---
LAB HERE TO DRAW BLOOD CULTURES.
[2017-10-04 01:00] VITALS: BP 190/88
--- NOTE | 2017-10-04 01:00 | NUR ---
A 71, admitted to [facility], under the services of KERI Palomino MD with a diagnosis of HOSPITAL ACQUIRED PNEUMONIA, SEVERE SEPSIS, PNEUMONIA. Chief complaint is SOB. Patient arrived via stretcher from ER. Monitor applied. Initial assessment completed. Vital signs taken and recorded. KERI PALOMINO MD notified of admission to the unit. Orders received. See assessment for past medical history, medications and allergies. Patient and/or family oriented to unit. [facility] visitation policy reviewed. Clothing/patient valuable form completed. SANDI GREER
--- NOTE | 2017-10-04 01:05 | NUR ---
UNABLE T0 VERIFY HOME MEDS WITH PATIENT. NO FAMILY PRESENT.
[2017-10-04 04:00] VITALS: BP 152/70
--- NOTE | 2017-10-04 06:34 | NUR ---
CONTACTED DR. PETTIT'S OFFICE FOR CONSULT. AWAITING CALL BACK.
--- NOTE | 2017-10-04 06:47 | NUR ---
CONTACTED DR. VENCES WITH CONSULT.
--- NOTE | 2017-10-04 07:45 | NUR ---
PHYSICAL THERAPY Nursing screen received. PAtient was on case load prior to d/c in last 12 hours. Now readmitted in [facility]. Please order PT when medically appropriate. Thank you. Ai Lang,PT
--- NOTE | 2017-10-04 07:52 | NUR ---
Nursing screen completed this date. After chart review, Occupational Therapy referral recommended for d/c planning when patient is medically appropriate. Thank you for this consideration. Misa Suero OTR/l
[2017-10-04 08:00] VITALS: BP 175/70
--- NOTE | 2017-10-04 08:30 | NUR ---
DR INGRAM WANTS PT TO GO TO [facility] TODAY. DC GRADUATION COACH WILL SPEAK TO AND ARRANGE.
--- NOTE | 2017-10-04 09:40 | NUR ---
In to see patient, is not available at this time, patient on bi pap. Talked with nurse Merrill and let her know patient is accepted to [facility] and Dr. Miguel stated she could go today. Will follow
[2017-10-04] MEDS ORDERED: NORVASC5 MG PO (10:05)
[2017-10-04] MEDS ORDERED: PREDNISONE20 M1 PO (10:06)
[2017-10-04] MEDS ORDERED: MIRALAX119 GM PO (10:07)
[2017-10-04 12:00] VITALS: BP 188/68
--- NOTE | 2017-10-04 12:41 | NUR ---
[facility] discharged. Faxed updates and progress notes to Shani at [phone] for review per request. [facility] who stated Dr Miguel in supposed to be in to see patient within the hour, also notified her [facility]. Discussed plans with and explained to him that Dr Miguel will be in shortly and should be discharging her to [facility] today.
--- NOTE | 2017-10-04 14:23 | NUR ---
Patient is discharged to [facility] in [facility]. Transportation scheduled for 2:45 pm with [facility]. Faxed discharge information and discharge summary. Notified RUDDY Merrill [facility] and scanning clerk Kathy of ambulance and transport time. Notified Brianna at [facility] of patient arrival time. Attempted to call on both numbers listed on face sheet, unable to contact, unable to leave voicemail.
--- NOTE | 2017-10-04 14:40 | NUR ---
CALLED REGARDING PATIENT IS NOW A-FIB/FLUTTER RATE 140'S PER CM. NEW ORDER RECEIVED FOR CARDIZEM 240MG PO X ONE NOW AND THEN DAILY. GIVE DOSE STAT AND THEN CAN DISCHARGE IN TWO HOURS. SPOUSE AWARE OF ORDERS.
--- NOTE | 2017-10-04 14:46 | NUR ---
[facility] nurse Desirae called and stated patient was experiencing a fib now and asked to put the ambulance on hold. Contacted [facility] and explained situation, told them someone would call them when the patient is ready. Also contacted Brianna at [facility] with same information. Patient is to receive Cardizem and call Dr. Miguel back in 2 hours.
[2017-10-04 16:00] VITALS: BP 168/70
--- NOTE | 2017-10-04 16:10 | NUR ---
PATIENT CONVERTED TO NSR PER CM-RATE 70'S.
--- NOTE | 2017-10-04 17:17 | NUR ---
PATIENT DISCHARGED TO [facility]IA [facility]. ALL PERSONAL BELONGINGS SENT WITH PATIENT. TRANSFER PACKET GIVEN TO AMBULANCE CREW.
--- NOTE | 2017-10-04 18:04 | NUR ---
REPORT GIVEN TO RN AT [facility].
== END 2017-10-04 17:17 | disposition short-term general hospital (02) | DRG 871 ==
LOC: ED 22:20 → EDHOLD 23:52 → ICCU 23:52
PROVIDERS: Emergency Medicine; ADMIT Internal Medicine
PROC: 0BH17EZ Insertion of Endotracheal Airway into Trachea, Via Natural or Artificial Opening (ICD-10-PCS; principal; 2017-10-03)
PROC: 5A1935Z Respiratory Ventilation, Less than 24 Consecutive Hours (ICD-10-PCS; principal; 2017-10-03)
PROC: 5A09357 Assistance with Respiratory Ventilation, Less than 24 Consecutive Hours, Continuous Positive Airway Pressure (ICD-10-PCS; 2017-10-04)
DX: A41.9 Sepsis, unspecified organism (principal); J18.9 Pneumonia, unspecified organism; N17.0 Acute kidney failure with tubular necrosis; J96.21 Acute and chronic respiratory failure with hypoxia; E44.0 Moderate protein-calorie malnutrition; D68.9 Coagulation defect, unspecified; E11.22 Type 2 diabetes mellitus with diabetic chronic kidney disease; N10 Acute pyelonephritis; J43.2 Centrilobular emphysema; E11.65 Type 2 diabetes mellitus with hyperglycemia; R65.20 Severe sepsis without septic shock; I25.10 Atherosclerotic heart disease of native coronary artery without angina pectoris; K21.9 Gastro-esophageal reflux disease without esophagitis; E78.2 Mixed hyperlipidemia; E66.3 Overweight; Z96.652 Presence of left artificial knee joint; F17.200 Nicotine dependence, unspecified, uncomplicated; N18.9 Chronic kidney disease, unspecified; I48.0 Paroxysmal atrial fibrillation; F41.1 Generalized anxiety disorder; G89.4 Chronic pain syndrome; E78.00 Pure hypercholesterolemia, unspecified; D63.8 Anemia in other chronic diseases classified elsewhere; T36.8X5A Adverse effect of other systemic antibiotics, initial encounter; I12.9 Hypertensive chronic kidney disease with stage 1 through stage 4 chronic kidney disease, or unspecified chronic kidney disease; Z99.81 Dependence on supplemental oxygen; Z91.013 Allergy to seafood; Z86.718 Personal history of other venous thrombosis and embolism; Z88.5 Allergy status to narcotic agent; Z79.01 Long term (current) use of anticoagulants; Z79.4 Long term (current) use of insulin; Z98.61 Coronary angioplasty status; Z98.51 Tubal ligation status; Z90.49 Acquired absence of other specified parts of digestive tract; Z91.041 Radiographic dye allergy status; Z88.1 Allergy status to other antibiotic agents; Z88.2 Allergy status to sulfonamides; Y92.89 Other specified places as the place of occurrence of the external cause; Z68.28 Body mass index [BMI] 28.0-28.9, adult; T38.0X5A Adverse effect of glucocorticoids and synthetic analogues, initial encounter